=== PATIENT | male | born 1960 | race Caucasian/White ===

== ENCOUNTER 2023-08-06 08:54 | Outpatient (OUT) | payer OTHER, SELFPAY ==
[2023-08-06 09:19] LABS: Basophils Percent Auto 0.7 % (0.2-2.0); Hematocrit 40.5 % (42.0-54.0); Hemoglobin 13.1 g/dL (14.0-18.0); Immature Granulocytes Abs Auto 0.01 10^3/uL (0.00-0.03); Immature Granulocytes Pct Auto 0.4 % (0.0-0.5); Lymphocytes Absolute Auto 0.7 10^3/uL (1.2-3.8); Lymphocytes Percent Auto 25.2 % (20.5-60.0); Mean Corpuscular HGB Conc 32.3 g/dL (29.9-35.2); Mean Corpuscular Hemoglobin 28.8 pg (25.9-34.0); Mean Platelet Volume 9.4 fL (9.5-13.5); Monocytes Absolute Auto 0.4 10^3/uL (0.3-0.8); Monocytes Percent Auto 12.8 % (1.7-12.0); Neutrophils Absolute Auto 1.7 10^3/uL (1.4-6.5); Neutrophils Percent Auto 60.9 % (43.0-75.0); Platelet Count 102 10^3/uL (150-450); Red Blood Count 4.55 10^6/uL (4.70-6.10); Red Cell Distribution Width 13.5 % (11.0-15.0); White Blood Count 2.8 10^3/uL (4.0-11.0)
[2023-08-06 09:52] LABS: Alanine Aminotransferase 33 U/L (16-63); Albumin Globulin Ratio 0.9; Albumin Level 3.7 g/dL (3.4-5.0); Alkaline Phosphatase 106 U/L (46-116); Anion Gap 10.5; Aspartate Amino Transferase 23 U/L (15-37); BUN Creatinine Ratio 15.7; Bilirubin Total 1.5 mg/dL (0.2-1.0); Calcium 9.1 mg/dL (8.5-10.1); Carbon Dioxide 29.6 mmol/L (21.0-32.0); Chloride 101 mmol/L (98-107); Chol HDL Ratio 2.5; Cholesterol 146 mg/dL (<=200); Estimated GFR (African America >60 (>=60); Estimated GFR (Non-African Ame >60 (>=60); Free Thyroxine Index 2.16 (1.30-4.50); Globulin 4.3 g/dL; Glucose 102 mg/dL (74-106); HDL Cholesterol 58 mg/dL (40-60); LDL Cholesterol Calculated 78.4 mg/dL; Potassium 4.1 mmol/L (3.5-5.1); Sodium 137 mmol/L (136-145); Thyroid Stimulating Hormone 3.469 uIU/mL (0.358-3.740); Triglycerides 48 mg/dL (<=150); Uric Acid 5.2 mg/dL (3.5-7.2); VLDL CHOLESTEROL 9.6 mg/dL
[2023-08-06 10:46] LABS: Estimated Average Glucose 131 mg/dL; Glycohemoglobin A1C 6.2 % (4.5-6.2)
[2023-08-06 11:08] LABS: Prostate Specific Antigen Scrn 0.21 ng/mL (<=4.00)
[2023-08-07 10:11] LABS: Insulin 20.3 uIU/mL (2.6-24.9)
== END 2023-08-06 08:55 | disposition home or self-care (01) ==
LOC: LAB 08:58
PROVIDERS: PCP Family Medicine; Visit Provider Family Medicine
DX: Z00.00 Encounter for general adult medical examination without abnormal findings (principal); Z12.5 Encounter for screening for malignant neoplasm of prostate
CPT/HCPCS: 36415; 80053; 80061; 82306; 83036; 83525; 84436; 84443; 84479; 84550; 85025; G0103

== ENCOUNTER 2023-08-07 12:26 | Outpatient (REF) | payer OTHER, SELFPAY ==
[2023-08-07 15:51] LABS: Occult Blood Negative
== END 2023-08-07 12:27 | disposition home or self-care (01) ==
LOC: LAB 12:26
PROVIDERS: PCP Family Medicine; Visit Provider Family Medicine
DX: Z00.00 Encounter for general adult medical examination without abnormal findings (principal)
CPT/HCPCS: G0328

== ENCOUNTER 2023-09-17 12:25 | Outpatient (OUT) | payer OTHER, SELFPAY ==
--- NOTE | 2023-09-17 12:35 | NM_ITS ---
Patient: KIRTI DICKSON Exam Date: 09/17/2023 : 1960 Gender:M Ordering : DR Emory Eubanks . Admission #: [id number] Family : Order #: [id number] CLICK HERE TO VIEW EXAM RADIOLOGY REPORT PROCEDURE: NM ARCHIE PERF SPECT REST STR COMPARISON: None. INDICATIONS: FATIGUE, DYSPNEA TECHNIQUE: Exam Description: Stress/Rest two day protocol gated SPECT Rest Imagin.7 mCi Tc-99m Cardiolite IV on 09/17/2023 Stress Imaging 25.4 mCi Tc-99m Cardiolite IV on 09/18/2023 Exercise Protocol: 0.4 mg Lexiscan given IV Heart Rate (bpm): Rest: 70 Max: 187 PMHR: 74 Blood Pressure: Rest: 156/82 Max: 164/92 Symptoms: Rest and peak stress ECG findings were normal and the exercise portion of the study was normal per attending physician Dr. Ulloa . For more details please see separate cardiac stress test report. FINDINGS: QUALITY OF STUDY: Good. PERFUSION DEFECT: LOCATION: Basal inferior. Mid-inferior. Apical inferior. SIZE: Medium (3-4 segments). SEVERITY: Moderate. TYPE: Persistent. WALL MOTION: Mild hypokinesis: LV SIZE: Enlarged; EDV 163 mL. TID / TCD: None; 1.0 LVEF: Abnormal. Calculated EF 49%. SUMMARY: Myocardial perfusion imaging study has ABNORMAL findings. CONCLUSION: 1. Moderate size moderate severity fixed defect in the inferior wall without definite evidence reversible ischemia 2. Dilated left ventricle, EDV 163 milliliters 3. Low left ventricular ejection fraction of 49% 4. Normal exercise test Dictated by: Peewee Dang MD on 09/19/2023 at 07:56 Approved by: Peewee Dang MD on 09/19/2023 at 07:58
== END 2023-09-17 12:26 | disposition home or self-care (01) ==
LOC: NM 12:25
PROVIDERS: PCP Family Medicine; Visit Provider Family Medicine
DX: R06.00 Dyspnea, unspecified (principal)
CPT/HCPCS: 78452; A9500

== ENCOUNTER 2023-09-18 09:05 | Outpatient (OUT) | payer OTHER, SELFPAY ==
[2023-09-18] MEDS: REGADENOSON 0.4 MG/5 ML SYRINGE IV (09:59)
--- NOTE | 2023-09-18 16:54 | PM.STRESS ---
Stress Test Stress Test Requesting physician: Emory Eubanks Procedure: Lexiscan Cardiolite stress test General Information: Reason for Stress Test: Dyspnea Cardiac History and Risk Factors: No personal history listed. Father had CABG. Resting 12 - Lead Electrocardiogram: Rate & rhythm: Sinus rhythm at a rate of 70. [place]: Normal T-waves: Inverted in the anterior leads and flattened in the lateral leads. ST-segments: Normal orientation Other findings: Incomplete RBBB Stress Test: Protocol: Yuval protocol was initiated, but due to inability to ambulate further, the exercise component was unable to achieve target heart rate and therefore canceled.? Testing was changed to Lexiscan protocol, with injection of 0.4mg Lexiscan IV push followed by Cardiolite. Blood pressure: Initial: 156/82, Maximum: 164/92 Rate & rhythm: Patient remained in sinus rhythm during the exercise and recovery portions of the study.? The maximum heart rate was 117, which was 74% of the maximum predicted heart rate 158. PVCs were noted ST-segments & T-waves: There were no T-wave changes and no ST-segment changes when compared to the baseline EKG. Patient response/symptoms: There were no symptoms similar to the chief complaint. Interpretation: This is a normal Lexiscan Cardiolite stress test. T-wave changes noted at baseline did not change significantly during the testing. No reproducible dyspnea. Cardiolite imaging interpretation will be reported separately. Clinical correlation required.?
== END 2023-09-18 09:06 | disposition home or self-care (01) ==
LOC: CARD 09:05
PROVIDERS: PCP Family Medicine; Visit Provider Family Medicine
DX: R06.00 Dyspnea, unspecified (principal)
CPT/HCPCS: 93017; J2785

== ENCOUNTER 2023-09-19 22:34 | Emergency (ER) | payer OTHER, SELFPAY ==
[2023-09-19 22:38] VITALS: BP 125/80; PULSE 77; RESP 16; TEMP 36.9; O2SAT 96; BMI 52.2
--- NOTE | 2023-09-19 22:45 | XR_ITS ---
The [address] [address] Patient Name: KIRTI DICKSON MRN: [id number] date: 1960 Sex: M Assigned Patient Location: ER Current Patient Location: ER Accession/Order Number: [id number] Exam Date: 09/19/2023 22:50 Report Date: 09/19/2023 23:22 At the request of: CLYDE WAITE Procedure: XR chest 2V EXAM: XR chest 2V HISTORY: cough COMPARISON: None. TECHNIQUE: PA and lateral chest x-rays FINDINGS: No focal parenchymal consolidation or infiltrate. Calcified bilateral pulmonary granuloma. No pneumothorax or pleural effusion. The heart is upper limits of normal. No visualized acute osseous abnormality. XR/XR chest 2V IMPRESSION: No visualized acute abnormality Electronically authenticated by: KYLEE HOOD Date: 09/19/2023 23:22
--- NOTE | 2023-09-19 22:45 | ED.URI1 ---
HPI - URI/Sore Throat General Chief Complaint: Upper Respiratory Infection Stated Complaint: UPPER RESPIRATORY INFECTION COUGH Time Seen by Provider: 09/19/23 22:38 Source: patient Limitations: no limitations History of Present Illness HPI Narrative: presents complaining of recurrent cough today. States his had it yesterday. Tried laying down and his nose stuffiness worsened. Throat feels sore from recurrent coughing. Not short of breath and no fever or nausea.states when he lays down he finds himself coughing more and it is hard to sleep MD elicited complaint: Reports cough Related Data Home Medications Medication Instructions Recorded Confirmed furosemide 40 mg tablet 40 mg PO DAILY 09/19/23 09/19/23 trazodone 50 mg tablet 50 mg PO DAILY 09/19/23 09/19/23 verapamil 180 mg 24 hr 180 mg PO DAILY 09/19/23 09/19/23 capsule,extended release Allergies Allergy/AdvReac Type Severity Reaction Status Date / Time No Known Drug Allergies Allergy Verified 09/19/23 22:41 Review of Systems ROS Status of ROS 10 or more systems reviewed and unremarkable except as noted in history and below Exam Constitutional Vital Signs, click to edit/add: Last Vital Signs Temp 98.4 F 09/19/23 22:38 Pulse 77 09/19/23 22:38 Resp 16 09/19/23 22:38 BP 125/80 09/19/23 22:38 Pulse Ox 96 09/19/23 22:38 O2 Del Method Room Air 09/19/23 22:38 Common normals: no apparent distress, average body habitus, oriented x3, healthy appearing and well nourished [facility] Common normals: normocephalic and head/scalp atraumatic Eye Common normals: PERRL, EOMs intact bilaterally and conjunctivae normal Respiratory Common normals: normal respiratory effort, no retractions, no use of accessory muscles and clear to auscultation bilaterally Cardio Common normals: regular rate, regular rhythm, S1 normal heart sound and S2 normal heart sound GI Common normals: Normal to inspection, nondistended, normoactive bowel sounds present, soft to palpation and non-tender Extremity Common normals: normal to inspection and full ROM Neuro Common normals: oriented x3, CN's II-XII intact bilaterally, moves all extremities, no focal motor deficits and no sensory deficits noted Psych Appearance: grossly normal Course Vital Signs Vital signs: Vital Signs Temperature 98.4 F 09/19/23 22:38 Pulse Rate 77 09/19/23 22:38 Respiratory Rate 16 09/19/23 22:38 Blood Pressure 125/80 09/19/23 22:38 Pulse Oximetry 96 09/19/23 22:38 Oxygen Delivery Method Room Air 09/19/23 22:38 Temperature 98.4 F 09/19/23 22:38 Pulse Rate 77 09/19/23 22:38 Respiratory Rate 16 09/19/23 22:38 Blood Pressure 125/80 09/19/23 22:38 Pulse Oximetry 96 09/19/23 22:38 Oxygen Delivery Method Room Air 09/19/23 22:38 MDM - URI/Sore Throat MDM Narrative Medical decision making narrative: patient presents complaining of cough. Recurrent cough. worse when supine. States his was ill yesterday with the same and she is now improving. His cxray is clear. Respiratory panel is neg and his chest is clear. Patient informed he most likely has same illness as his . Will provide an inhaler to use prn for the spasmodic cough he is describing Lab Data Labs: Lab Results 09/19/23 09/19/23 Range/Units 22:55 23:00 WBC 4.7 (4.0-11.0) 10^3/uL RBC 4.35 L (4.70-6.10) 10^6/uL Hgb 12.6 L (14.0-18.0) g/dL Hct 39.9 L (42.0-54.0) % MCV 91.7 (80.0-94.0) fL MCH 29.0 (25.9-34.0) pg MCHC 31.6 (29.9-35.2) g/dL RDW 13.7 (11.0-15.0) % Plt Count 118 L (150-450) 10^3/uL MPV 9.9 (9.5-13.5) fL Neut % (Auto) 71.4 (43.0-75.0) % Lymph % (Auto) 15.5 L (20.5-60.0) % [place] % (Auto) 12.3 H (1.7-12.0) % Eos % (Auto) 0.0 L (0.9-7.0) % Baso % (Auto) 0.6 (0.2-2.0) % Neut # (Auto) 3.4 (1.4-6.5) 10^3/uL Lymph # (Auto) 0.7 L (1.2-3.8) 10^3/uL [place] # (Auto) 0.6 (0.3-0.8) 10^3/uL Eos # (Auto) 0.0 (0.0-0.7) 10^3/uL Baso # (Auto) 0.0 (0.0-0.1) 10^3/uL Abs Immat Gran (auto) 0.01 (0.00-0.03) 10^3/uL Imm/Tot Granulo (auto) 0.2 (0.0-0.5) % Sodium 130 L (136-145) mmol/L Potassium 3.8 (3.5-5.1) mmol/L Chloride 95 L (98-107) mmol/L Carbon Dioxide 25.7 (21.0-32.0) mmol/L Anion Gap 13.1 BUN 15.0 (7.0-18.0) mg/dL Creatinine 1.10 (0.70-1.30) mg/dL Est GFR ( Amer) >60 (>=60) Est GFR (Non-Af Amer) >60 (>=60) BUN/Creatinine Ratio 13.6 Glucose 110 H (74-106) mg/dL Calcium 9.1 (8.5-10.1) mg/dL Adenovirus (PCR) Not detected (NOT DETECTE) C. pneumoniae DNA (PCR) Not detected (NOT DETECTE) Coronavirus Type OC43 Not detected (NOT DETECTE) Coronavirus Type HKU1 Not detected (NOT DETECTE) Coronavirus Type 229E Not detected (NOT DETECTE) Coronavirus Type NL63 Not detected (NOT DETECTE) Human Metapneumovir PCR Not detected (NOT DETECTE) M. pneumoniae (PCR) Not detected (NOT DETECTE) Parainfluenza PCR Not detected (NOT DETECTE) Parainfluenza 2 (PCR) Not detected (NOT DETECTE) Parainfluenza 3 (PCR) Not detected (NOT DETECTE) Parainfluenza 4 (PCR) Not detected (NOT DETECTE) RSV (RT-PCR) Not detected (NOT DETECTE) Entero/Rhino (PCR) Not detected (NOT DETECTE) SARS-CoV-2 (PCR) Not detected (NOT DETECTE) Bordetella pertussis (PCR) Not detected (NOT DETECTE) B parapertussis DNA PCR Not detected (NOT DETECTE) Influenza Type A (PCR) Not detected (NOT DETECTE) Influenza Type B (PCR) Not detected (NOT DETECTE) Discharge Plan Discharge Chief Complaint: Upper Respiratory Infection Clinical Impression: Upper respiratory infection, Cough Patient Disposition: Home, Self-Care Prescriptions / Home Meds: No Action furosemide 40 mg tablet 40 mg PO DAILY trazodone 50 mg tablet 50 mg PO DAILY verapamil 180 mg capsule,ext rel. pellets 24 hr 180 mg PO DAILY Instructions: Upper Respiratory Infection (ED) Stand Alone Forms: Portal Instructions Referrals: Emory Eubanks MD [Primary Care Provider] - 1 week
[2023-09-19 23:02] LABS: Basophils Percent Auto 0.6 % (0.2-2.0); Hematocrit 39.9 % (42.0-54.0); Hemoglobin 12.6 g/dL (14.0-18.0); Immature Granulocytes Abs Auto 0.01 10^3/uL (0.00-0.03); Immature Granulocytes Pct Auto 0.2 % (0.0-0.5); Lymphocytes Absolute Auto 0.7 10^3/uL (1.2-3.8); Lymphocytes Percent Auto 15.5 % (20.5-60.0); Mean Corpuscular HGB Conc 31.6 g/dL (29.9-35.2); Mean Corpuscular Volume 91.7 fL (80.0-94.0); Mean Platelet Volume 9.9 fL (9.5-13.5); Monocytes Absolute Auto 0.6 10^3/uL (0.3-0.8); Monocytes Percent Auto 12.3 % (1.7-12.0); Neutrophils Absolute Auto 3.4 10^3/uL (1.4-6.5); Neutrophils Percent Auto 71.4 % (43.0-75.0); Platelet Count 118 10^3/uL (150-450); Red Blood Count 4.35 10^6/uL (4.70-6.10); Red Cell Distribution Width 13.7 % (11.0-15.0); White Blood Count 4.7 10^3/uL (4.0-11.0)
[2023-09-19 23:06] LABS: Adenovirus NOT DETECTED (NOT DETECTE); Bordetella parapertussis NOT DETECTED (NOT DETECTE); Coronavirus 229E NOT DETECTED (NOT DETECTE); Coronavirus HKU1 NOT DETECTED (NOT DETECTE); Coronavirus NL63 NOT DETECTED (NOT DETECTE); Coronavirus OC43 NOT DETECTED (NOT DETECTE); Human Metapneumovirus NOT DETECTED (NOT DETECTE); Human Rhinovirus/Enterovirus NOT DETECTED (NOT DETECTE); Influenza A NOT DETECTED (NOT DETECTE); Influenza B NOT DETECTED (NOT DETECTE); Mycoplasma pneumoniae NOT DETECTED (NOT DETECTE); Parainfluenza Virus 1 NOT DETECTED (NOT DETECTE); Parainfluenza Virus 2 NOT DETECTED (NOT DETECTE); Parainfluenza Virus 3 NOT DETECTED (NOT DETECTE); Parainfluenza Virus 4 NOT DETECTED (NOT DETECTE); Respiratory Syncytial Virus NOT DETECTED (NOT DETECTE); SARS-CoV-2 NOT DETECTED (NOT DETECTE)
[2023-09-19 23:17] LABS: Anion Gap 13.1; BUN Creatinine Ratio 13.6; Calcium 9.1 mg/dL (8.5-10.1); Carbon Dioxide 25.7 mmol/L (21.0-32.0); Chloride 95 mmol/L (98-107); Estimated GFR (African America >60 (>=60); Estimated GFR (Non-African Ame >60 (>=60); Glucose 110 mg/dL (74-106); Potassium 3.8 mmol/L (3.5-5.1); Sodium 130 mmol/L (136-145)
[2023-09-20] MEDS: ALBUTEROL SULFATE 200 PUFF/6.7 GM INHALER IH (00:30)
== END 2023-09-20 00:33 | disposition home or self-care (01) ==
PROVIDERS: Emergency Provider Internal Medicine; PCP Family Medicine
DX: J06.9 Acute upper respiratory infection, unspecified (principal); R05.9 Cough, unspecified; Z79.899 Other long term (current) drug therapy; Z20.822 Contact with and (suspected) exposure to COVID-19
CPT/HCPCS: 0202U; 36415; 71046; 80048; 85025; 99284

== ENCOUNTER 2023-10-17 08:26 | Outpatient (OUT) | payer OTHER, SELFPAY ==
--- NOTE | 2023-10-17 09:11 | CA_ITS ---
Patient Name: KIRTI DICKSON MR#: [id number] : 1960 Exam Date: 10/17/2023 Ordering Doctor: MRS. DESIRAE GUPTA NP ECHOCARDIOGRAM REPORT PROCEDURE: CA ECHO DOPPLER COMPLETE INDICATIONS: Shortness of breath, abnormal ECG, hypertension COMPARISON: None. DESCRIPTION: COMPLETE ECHOCARDIOGRAM Real-time transthoracic echocardiography with 2D, M-mode, spectral and color flow Doppler performed. QUALITY: Technically difficult due to patient's condition. 72 385# BSA 2.81 m2 LEFT VENTRICLE: Normal chamber size. Moderate concentric left ventricular hypertrophy. LV EF: Global left ventricular systolic function is difficult to assess but appears preserved; visually estimated ejection fraction is 55 to 60%. Unable to assess regional wall motion abnormalities. DIASTOLIC: Normal diastolic function. ATRIAL SEPTUM: Not well visualized. LEFT ATRIUM: Normal chamber size. RIGHT ATRIUM: Normal chamber size. RIGHT VENTRICLE: Normal chamber size. Normal right ventricular systolic function. TRICUSPID VALVE: Normal mobility and thickness. No stenosis with no regurgitation. MITRAL VALVE: Normal mobility and thickness. No evidence of mitral valve stenosis. There is no mitral annular calcification. No mitral regurgitation. AORTIC VALVE: Normal trileaflet appearance. No visible sclerosis. Normal leaflet mobility. No evidence of aortic valve stenosis. No aortic regurgitation. AORTIC ROOT: Not well visualized. PULMONIC VALVE: Normal thickness and mobility. No stenosis. No regurgitation. PERICARDIUM: No evidence of pericardial effusion. IVC: IVC is dilated (3.0 cm) with no collapse. CONCLUSION: 1. Global left ventricular systolic function is difficult to assess; visually estimated ejection fraction is 55 to 60% 2. The right ventricle is normal in size and systolic function 3. Moderately increased left ventricular wall thickness 4. Valves are poorly seen; no obvious valvular abnormalities Adult Echocardiography Procedure Report Left Ventricle LVEDD (3.7 - 5.6 cm): 5.26 cm LVESD (2.2 - 4.0 cm): 3.56 cm LVIVS thickness (0.6 - 1.2 cm): 1.26 cm LVPW thickness (0.5 - 1.0 cm): 1.47 cm e': 0.17 m/s E - e': 5.32 LVOT Max Gradient: 5.08 mm[Hg] LVOT Area (cm2): 1.13 m/s Peak Velocity (LVOT): 1.13 m/s LVOT Diameter 2.81 cm Left Atrium LA Volume Index (2D A2C): 26.70 ml/m2 Left Atrium Systolic Dimension: 3.97 cm Mitral Valve MV E to A Ratio: 1.60 Mitral Valve A-Wave Peak Velocity: 0.56 m/s Mitral Valve E-Wave Peak Velocity: 0.89 m/s Right Ventricle Aorta AO Root Diam: 4.42 cm Aortic Valve AoV Area (Peak Bucky): 4.90 cm2, 4.90 cm2 Peak Velocity(Antegrade Flow): 1.43 m/s Peak Gradient(Antegrade Flow): 8.14 mm[Hg] Mean Velocity(Antegrade Flow): 0.96 m/s Mean Gradient(Antegrade Flow): 4.33 mm[Hg] Velocity Time Integral: 34.30 cm Tricuspid Valve Pulmonic Valve Mean Gradient: 1.21 mm[Hg] Mean Velocity: 0.52 m/s Peak Velocity: 0.70 m/s, 0.78 m/s Peak Gradient: 2.42 mm[Hg], 1.94 mm[Hg] Right Atrium Right Atrium Systolic Pressure: 75.95 ml, 75.95 ml Dictated by: Lindsey Swain M.D. on 10/17/2023 at 15:57 Approved by: Lindsey Swain M.D. on 10/17/2023 at 16:05
== END 2023-10-17 08:27 | disposition home or self-care (01) ==
LOC: CARD 08:27
PROVIDERS: PCP Family Medicine; Visit Provider Nurse Practitioner Acute Care
DX: R06.02 Shortness of breath (principal); R94.39 Abnormal result of other cardiovascular function study
CPT/HCPCS: 93306

== ENCOUNTER 2023-10-31 09:24 | Outpatient (OUT) | payer OTHER, SELFPAY ==
[2023-10-31 10:00] LABS: Basophils Percent Auto 0.6 % (0.2-2.0); Hematocrit 39.3 % (42.0-54.0); Hemoglobin 12.3 g/dL (14.0-18.0); Immature Granulocytes Abs Auto 0.01 10^3/uL (0.00-0.03); Immature Granulocytes Pct Auto 0.3 % (0.0-0.5); Lymphocytes Absolute Auto 0.9 10^3/uL (1.2-3.8); Lymphocytes Percent Auto 26.8 % (20.5-60.0); Mean Corpuscular HGB Conc 31.3 g/dL (29.9-35.2); Mean Corpuscular Hemoglobin 28.5 pg (25.9-34.0); Mean Corpuscular Volume 91.2 fL (80.0-94.0); Mean Platelet Volume 9.7 fL (9.5-13.5); Monocytes Absolute Auto 0.4 10^3/uL (0.3-0.8); Monocytes Percent Auto 12.5 % (1.7-12.0); Neutrophils Percent Auto 59.8 % (43.0-75.0); Platelet Count 126 10^3/uL (150-450); Red Blood Count 4.31 10^6/uL (4.70-6.10); Red Cell Distribution Width 13.9 % (11.0-15.0); White Blood Count 3.3 10^3/uL (4.0-11.0)
[2023-11-01 04:09] LABS: Testosterone 138 ng/dL (264-916)
== END 2023-10-31 09:25 | disposition home or self-care (01) ==
LOC: LAB 09:26
PROVIDERS: PCP Family Medicine; Visit Provider Family Medicine
DX: J01.90 Acute sinusitis, unspecified (principal); D64.9 Anemia, unspecified; D69.6 Thrombocytopenia, unspecified
CPT/HCPCS: 36415; 82728; 83540; 84403; 85025

== ENCOUNTER 2023-12-15 10:08 | Outpatient (OUT) | payer OTHER, SELFPAY ==
--- OUTSIDE RECORDS SUMMARY | 2023-12-15 10:15 | XMS_ITS | CCD ---
Author Name Unknown Address [address] [place] [address] Organization [facility] Care Team Providers Care Equipment Installation Professional Name Role Phone DR BLAS EUBANKS Admitting Unavailable DR BLAS EUBANKS Attending Unavailable FRANK NAGY Primary Care Unavailable DR BLAS EUBANKS Consulting Unavailable Blas Eubanks Primary Care Physician Cuco BAEZA Attending Unavailable THUAN YADAV Attending Unavailable NANETTE FLETCHER Attending Unavailable Medications Current Medications Medication Drug Class(es) Dates Sig (Normalized) Sig (Original) celecoxib 100 mg oral capsule (1 source) Nonsteroidal Anti-inflammatory Drug Start: 02-14-2023 take 1 capsule by mouth once daily CeleBREX 100 mg Cap 100 mg = 1 cap(s), Oral, Daily, Refills(s) 0 Start Date: 02/14/23 Status: Ordered furosemide 40 mg oral tablet (1 source) Loop Diuretic Start: 02-14-2023 take 1 tablet by mouth once daily Lasix 40 mg Tab 40 mg = 1 tab(s), Oral, Daily, Refills(s) 0 Start Date: 02/14/23 Status: Ordered traZODone hydrochloride 50 mg oral tablet (1 source) Serotonin Reuptake Inhibitor Start: 02-14-2023 take 1-3 tablets by mouth once daily at bedtime as needed traZODONE 50 mg Tab 1-3 tabs, Oral, Once a day (at bedtime), PRN Insomnia, Refills(s) 0 Start Date: 02/14/23 Status: Ordered 24 hr verapamil hydrochloride 180 mg extended release oral capsule (1 source) Calcium Channel Saurav Start: 02-14-2023 take 1 capsule by mouth once daily verapamil 180 mg Cap-ER 180 mg = 1 cap(s), Oral, Daily, Refills(s) 0 Start Date: 02/14/23 Status: Ordered Problems Problem Classification Problem Date Documented Da te Episodic/Chronic Coagulation and hemorrhagic disorders (6 sources) Thrombocytopenia, unspecified; Translations: [THROMBOCYTOPENIA UNSPECIFIED] Onset: 02-28-2022 Chronic Congestive heart failure; nonhypertensive (2 sources) Unspecified diastolic (congestive) heart failure; Translations: [Unspecified diastolic (congestive) heart failure] Onset: 11-06-2023 Chronic Diseases of white blood cells (1 source) Decreased white blood cell count, unspecified; Translations: [DECREASED WBC COUNT UNSPECIFIED] Onset: 03-04-2022 Chronic Essential hypertension (1 source) Hypertensive disorder 02-14-2023 Chronic Other diseases of veins and lymphatics (2 sources) Venous insufficiency (chronic) (peripheral); Translations: [Venous insufficiency (chronic) (peripheral)] Onset: 09-29-2023 Episodic Other lower respiratory disease (2 sources) Other forms of dyspnea; Translations: [Other forms of dyspnea] Onset: 09-29-2023 Episodic Other nutritional; endocrine; and metabolic disorders (1 source) Body mass index 40+ - severely obese 02-25-2023 Chronic Other nutritional; endocrine; and metabolic disorders (1 source) Morbid obesity 02-14-2023 Chronic Other nutritional; endocrine; and metabolic disorders (2 sources) Morbid (severe) obesity due to excess calories; Translations: [Morbid (severe) obesity due to excess calories] Onset: 09-29-2023 Chronic Other screening for suspected conditions (not mental disorders or infectious disease) (2 sources) Abnormal result of other cardiovascular function study; Translations: [Abnormal result of other cardiovascular function study] Onset: 11-06-2023 Episodic Other skin disorders (1 source) Disorder of skin; Translations: [Disorder of the skin and subcutaneous tissue, unspecified] Onset: 02-25-2023 Episodic Other skin disorders (1 source) Lesion of scalp 02-25-2023 Episodic Residual codes; unclassified (2 sources) Family history of ischemic heart disease and other diseases of the circulatory system; Translations: [Family history of ischemic heart disease and other diseases of the circulatory system] Onset: 11-06-2023 Episodic Results Test Name Value Interpretation Reference Range Facility Office Visiton 11-06-2023 Follow-up visit [id number] Jas Dickson 1960 Date Provider Department [place] 11/06/2023 271-THUAN YADAV GERHARD [place] Family History Problem Relation Age of Onset Coronary artery disease Father Other Father Family Status - Relation Status Age at Father Level of Service:63717 [place] OFFICE/OUTPATIENT ESTABLISHED HIGH MDM 40-54 MIN Normal [facility] Orders Onlyon 11-06-2023 Orders Only [id number] Jas Dickson R 1960 M Date Provider Department [facility] 11/06/2023 Rosalinda-MARSHA RYDER [facility] Family History Problem Relation Age of Onset Coronary artery disease Father Other Father Family Status - Relation Status Age at Father Normal [facility] Office Visiton 09-29-2023 Follow-up visit [id number] Jas Dickson 1960 M Date Provider Department Center 09/29/2023 NANETTE CRAFT GERHARD [facility] Family History Problem Relation Age of Onset Coronary artery disease Father Other Father Family Status - Relation Status Age at Father Level of Service:42391 [place] OFFICE/OUTPATIENT NEW MODERATE MDM 45-59 MINUTES Normal [facility] Ambulatory Visit Summaryon 0 02-25-2023 Ambulatory Visit Summary KIRTI DICKSON :1960 Visit Date:02/25/2023 Ambulatory Visit Instructions Your Care Team Attending Physician - FELISHA MASTERSON, [place] Primary Care Physician - Blas Eubanks MD This Is Your Medications List Contact prescribing physician if questions or concerns celecoxib (CeleBREX 100 mg Cap) furosemide (Lasix 40 mg Tab) trazodone (traZODONE 50 mg Tab) verapamil (verapamil 180 mg Cap-ER) Procedures Performed Gastric sleeve, Uvulectomy. Discharge Vitals Heart Rate (Peripheral) 78 Respiratory Rate 16 Blood Pressure 130/88 Height 182.88 cm Height 72 in Weight 181 kg Weight 398.2 lb BMI 54.12 Medications What How Much When Instructions Unchanged celecoxib (CeleBREX 100 mg Cap) 1 Capsules By Mouth Every day Contact prescribing physician if questions or concerns Unchanged furosemide (Lasix 40 mg Tab) 1 Tablets By Mouth Every day Contact prescribing physician if questions or concerns Unchanged trazodone (traZODONE 50 mg Tab) 1-3 tabs By Mouth Once a day (at bedtime) as needed for Insomnia Contact prescribing physician if questions or concerns Unchanged verapamil (verapamil 180 mg Cap-ER) 1 Capsules By Mouth Every day Contact prescribing physician if questions or concerns Medications and Immunizations Administered Not Given influenza virus vaccine, inactivated, Patient Refuses Allergies No Known Allergies Problems Ongoing - Any problem that you are currently receiving treatment for. BMI 50.0-59.9, adult HTN (hypertension) Morbid obesity Normal [facility] Physician Referralon 023 Physician Referral [id number] Normal [facility] CBC AUTO DIFFon 02-28-2022 BASO # 0.0 103/ul Normal 0.0-0.1 [facility] Comment on above: Performed By: #### C BC #### [facility] [address] [place] [address] Dr. Bashir Lemons Basophils/100 WBC (Bld) 0.5 % Normal 0.2-2.0 [facility] Comment on above: Performed By: #### C BC #### [facility] [address] [place] [address] Dr. Bashir Lemons EO # 0.0 103/ul Normal 0.0-0.7 [facility] Comment on above: Performed By: #### C BC #### [facility] [address] [place] [address] Dr. Bashir Lemons Eosinophils/100 WBC (Bld) 0.0 % Critically low 0.9-7.0 [facility] Comment on above: Performed By: #### C BC #### [facility] [address] [place] [address] Dr. Bashir Lemons Erythrocyte distribution width (RBC) [Ratio] 12.3 % Normal 11.0-15.0 [facility] Comment on above: Performed By: #### C BC #### [facility] [address] [place] [address] Dr. Bashir Lemons Hematocrit (Bld) [Volume fraction] 41.9 % Critically low 42.0-54.0 [facility] Comment on above: Performed By: #### C BC #### [facility] [address] [place] [address] Dr. Bashir Lemons Hemoglobin (Bld) [Mass/Vol] 13.8 g/dL Critically low 14.0-18.0 [facility] Comment on above: Performed By: #### C BC #### [facility] [address] [place] [address] Dr. Bashir Lemons IG # 0.02 10e3/ul Normal 0.00-0.03 [facility] Comment on above: Performed By: #### C BC #### [facility] [address] [place] [address] Dr. Bashir Lemons IG % 0.5 % Normal 0.0-0.5 [facility] Comment on above: Performed By: #### C BC #### [facility] [address] [place] [address] Dr. Bashir Lemons LYMPH # 1.3 103/ul Normal 1.2-3.8 [facility] Comment on above: Performed By: #### C BC #### [facility] [address] [place] [address] Dr. Bashir Lemons Lymphocytes/100 WBC (Bld) 34.2 % Normal 20.5-60.0 [facility] Comment on above: Performed By: #### C BC #### [facility] [address] [place] [address] Dr. Bashir Lemons MANUAL DIFF REQ NO Normal [facility] Comment on above: Performed By: #### C BC #### [facility] [address] [place] [address] Dr. Bashir Lemons MCH (RBC) [Entitic mass] 28.9 pg Normal 25.9-34.0 [facility] Comment on above: Performed By: #### C BC #### [facility] [address] [place] [address] Dr. Bashir Lemons MCHC (RBC) [Mass/Vol] 32.9 g/dL Normal 29.9-35.2 [facility] Comment on above: Performed By: #### C BC #### [facility] [address] [place] [address] Dr. Bashir Lemons MCV (RBC) [Entitic vol] 87.8 fL Normal 80.0-94.0 [facility] Comment on above: Performed By: #### C BC #### [facility] [address] [place] [address] Dr. Bashir Lemons MONO # 0.5 103/ul Normal 0.3-0.8 [facility] Comment on above: Performed By: #### C BC #### [facility] [address] [place] [address] Dr. Bashir Lemons Monocytes/100 WBC (Bld) 12.1 % Critically high 1.7-12.0 [facility] Comment on above: Performed By: #### C BC #### [facility] [address] [place] [address] Dr. Bashir Lemons NEUT # 2.0 103/ul Normal 1.4-6.5 [facility] Comment on above: Performed By: #### C BC #### [facility] [address] [place] [address] Dr. Bashir Lemons Neutrophils/100 WBC (Bld) 52.7 % Normal 43.0-75.0 [facility] Comment on above: Performed By: #### C BC #### [facility] [address] [place] [address] Dr. Bashir Lemons Platelet mean volume (Bld) [Entitic vol] 9.5 fL Normal 9.5-13.5 [facility] Comment on above: Performed By: #### C BC #### [facility] [address] [place] [address] Dr. Bashir Lemons PLT 149 103/ul Critically low 150-[address] [facility] Comment on above: Performed By: #### C BC #### [facility] [address] [place] [address] Dr. Bashir Lemons RBC 4.77 106/ul Normal 4.70-6.10 [facility] Comment on above: Performed By: #### C BC #### [facility] [address] [place] [address] Dr. Bashir Lemons WBC 3.8 103/ul Critically low 4.0-11.0 [facility] Comment on above: Performed By: #### C BC #### [facility] [address] [place], [place] [address] Dr. Bashir Lemons Basic Metabolic Panlon 09-08 Anion gap [Moles/Vol] 13 mmol/L Normal 9-18 [facility] Comment on above: Performed By: #### B MP #### [facility] [address] [place] [address] Calcium [Mass/Vol] 9.7 mg/dL Normal 8.5-10.2 [facility] Comment on above: Performed By: #### B MP #### [facility] [place] [address] Chloride [Moles/Vol] 100 mmol/L Normal 97-105 [facility] Comment on above: Performed By: #### B MP #### [facility] [place] [address] CO2 [Moles/Vol] 25 mmol/L Normal 22-30 [facility] Comment on above: Performed By: #### B MP #### [place] [address] [place] [id number] Creatinine [Mass/Vol] 0.72 mg/dL Low 0.73-1.22 [facility] Comment on above: Performed By: #### B MP #### [facility] [place] [id number] eGFR- Amer. >60 Normal [facility] Comment on above: Performed By: #### B MP #### [facility] [place], [place] [address] GFR/1.73 sq M predicted among non-blacks MDRD (S/P/Bld) [Vol rate/Area] mL/min/{1.73_m2} Normal [facility] Comment on above: Result Comment: eGFR (Estimated GFR) Units of measure: mL/min/1.73 meters squared eGFR is derived from the reexpressed MDRD Study equation using the following parameters: serum creatinine, age, gender and race. The creatinine assay has been calibrated to be traceable to IDMS. An eGFR <60 mL/min/1.73m2 for >3 months is consistent with chronic kidney disease. Refer to KDOQI guidelines for clinical interpretation. In patients with unstable renal function, e.g. those with acute kidney injury, the eGFR may not accurately reflect actual GFR. Performed By: #### B MP #### [facility] [address] [place] [address] Glucose [Mass/Vol] 120 mg/dL High 74-99 [facility] Comment on above: Result Comment: The [place] Diabetes Association (ADA) provides guidance for cutoff values for fasting glucose and random glucose. The ADA defines fasting as no caloric intake for at least 8 hours. Fasting plasma glucose results between 100 to 125 mg/dL indicate increased risk for diabetes (prediabetes). Fasting plasma glucose results greater than or equal to 126 mg/dL meet the criteria for diagnosis of diabetes. In the absence of unequivocal hyperglycemia, results should be confirmed by repeat testing. In a patient with classic symptoms of hyperglycemia or hyperglycemic crisis, random plasma glucose results greater than or equal to 200 mg/dL meet the criteria for diagnosis of diabetes. Reference: Standards of Medical Care in Diabetes 2016, [place] [employer] Association. Diabetes Care. 2016.39(Suppl 1). Performed By: #### B MP #### [facility] [address] [place] [id number] Potassium [Moles/Vol] 4.3 mmol/L Normal 3.7-5.1 [facility] Comment on above: Performed By: #### B MP #### [facility] [address] [place], [place] [address] Sodium [Moles/Vol] 138 mmol/L Normal 136-144 [facility] Comment on above: Performed By: #### B MP #### [facility] [address] [place], [place] [address] Urea nitrogen [Mass/Vol] 22 mg/dL Normal 9-24 [facility] Comment on above: Performed By: #### B #### [facility] [address] [place], [place] [address] CNOVon 09-08-2019 CNOV Office Visit (DERMMN ) KIRTI DICKSON ([id number]) 1960 M Date Time Provider Department 09/08/19 10:20 AM GLENDY DAUGHERTY DERMMN During your visit today, we recorded the following information about you: Glendy Daugherty MD 09/19/2019 11:39 AM Signed EST PATIENT CHIEF COMPLAINT: Follow Up (Iga mediated leukocytoclastic vasculitis) JACKELYN: 04/01/[address] Hutchins and Dr. Posey HISTORY OF PRESENT ILLNESS: Kirti Dickson is a 59 year old male here for evaluation of vasculitis. HPI (Rash) Location: legs, abdomen Duration: -First occurred about 3 years ago. Patient had extensive rash and ulceration. He was hospitalized at the time and diagnosed with IgA vasculitis. He was treated with a prednisone taper with resolution. Per note 03/2017, labs (UA and BMP) were unremarkable - normal Cr, no blood in the urine. -Has not had recurrence until 08/29/19 - woke up with purpuric rash on bilateral legs and abdomen during visit to [place]. Patient provides photographs of rash for review today. Patient was prescribed prednisone taper by his PCP (08/30) - 60 x 4 days, 40 x 4 days, etc. Patient self-decreased taper from 40 mg to 30 mg because prednisone is making him very hungry. Has improved on prednisone with no purpura today. Usually after taking prednisone, patient gets a rash on the arms. Appearance (size, shape, color): erythematous Symptoms (growing, itching, bleeding, tender): none Modifying factors: none Current treatment: prednisone Past treatments: permethrin - Per , pt's hands have been itching over the last few months which is what preceded the IgA vasculitis last time - and are concerned about kidney function because they were told the vasculitis can affect the kidneys, PCP checks lab work yearly - Had weight loss surgery in Jan 2019, has lost 200 lb since surgery Personal Dermatologic History History of skin cancer: No History of chronic skin disease: Yes vasculitis History of allergic rhinitis / asthma: Yes seasonal allergies Family History History of skin cancer: No History of chronic skin disease: No History autoimmune diseases: No Social History Tobacco use: No EtOh use: Yes occasional 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 Past Medical History PAST MEDICAL HISTORY Diagnosis Date - HTN (hypertension) - Hypertension - Sleep apnea REVIEW OF SYSTEMS: Constitutional: Denies fever, chills, unintentional weight loss Head: Denies headaches Eyes: Denies vision changes ENT: Denies hearing changes, rhinorrhea, dysphagia Cardiovascular: Denies chest pain or palpitations Respiratory: Denies SOB, cough, wheezing GI: Denies abd pain MSK: +Joint pains Neuro: Denies weakness, numbness, tingling Psych: Denies depression or anxiety Heme/Lymph: Denies easy bruising or bleeding Skin as per HPI Medications Current Outpatient Medications: OMEPRAZOLE ORAL Take by mouth once daily. triamcinolone acetonide (KENALOG) 0.1 % ointment Apply to right lower leg when itchy and scaly once daily Friday-Friday, taking weekends off. predniSONE (DELTASONE) 5 mg tablet Take 10mg (2 pills) one day, then 5mg (1pill) the next for 2 weeks, then decrease to 5 mg daily. verapamil SR (CALAN SR, ISOPTIN SR) 240 mg CR tablet Take 1 tablet by mouth once daily. colchicine 0.6 mg capsule Start by taking one tablet daily by mouth. If well tolerated after 1 week increase to 1 tablet twice daily. acetaminophen (TYLENOL EXTRA STRENGTH) 500 mg tablet Take 500 mg by mouth as needed. camphor-menthol (SARNA) lotion Apply 1 application to affected area as needed for Itching/Rash. pantoprazole DR (PROTONIX) 40 mg tablet Take 1 tablet by mouth DAILY (6 AM). traZODone (DESYREL) 150 mg tablet Take 0.5 tablets by mouth daily at bedtime. No current facility-administered medications for this visit. PHYSICAL EXAM: General: awake, alert, no acute distress Neuropsych: appropriate mood and affect Skin: Skin exam was performed today including the following: head and face, neck, chest (including breasts and axillae), abdomen, back, bilateral upper extremities, bilateral lower extremities, hands, feet. Pertinent findings include: -Felipe skin type: I-II -Numerous open comedones on bilateral temples c/w Favre-Racouchot -Scattered on the face are yellow shiny papules with central umbilication c/w sebaceous hyperplasia -Subtle, pink scattered papules on bilateral upper extremities - Abdominal and flank striae - Circumferentially involving the bilateral lower legs (R>L) are hyperpigmented eczematous plaques ASSESSMENT AND PLAN: Vasculitis Dermatitis of uncertain etiology -Patient with history of IgA vasculitis in the past. Now with new purpuric lesions suspicious for vasculitis on lower extremities and abdomen, resolved with prednisone -Subtle, scattered pink papules on the upper extremities today, not clinically consistent with classic vasculitis -Punch biopsy x 2 (EMI and DIF) performed today of lesions on arms to establish diagnosis, as below. -Recommend patient continue current course of prednisone as prescribed. -UA and BMP today to assess renal function given hx of IgA vasculitis and recent suspected flare of vasculitis. Punch biopsy to establish and confirm diagnosis. - Photo taken: Yes - Risks, benefits, alternatives and personnel required for punch biopsy reviewed with patient. Pt and physician agree as to site(s) to be biopsied. Pt verbalizes understanding and wishes to proceed. Pamela Hope MD - Site(s) anesthetized with buffered 1% Lidocaine with Epinephrine. 4mm punch biopsy x 2 performed. Hemostasis was obtained with interrupted sutures. Dressing applied. Written and verbal wound care instructions provided to patient. - Two specimens sent from L upper arm (superior) for EMI and L upper arm (inferior) for DIF to r/o IgA vasculitis - Mr. Dickson tolerated the procedure well and without complication. Follow-up for suture removal in 10-12 days. Bilateral lower extremity stasis dermatitis - Per review of prior notes, was involving LLE but now is bilateral - Encouraged to continue moisturization, compression stockings, and elevation - Will continue to follow with home vascular surgeon Follow up pending biopsy results. YI Huggins MD Dermatology PGY-1 September 08, 2019 Attestation: I agree with the Chief Complaint, ROS, and Past Histories independently gathered by the clinical ict support engineer, and the remaining scribed note accurately describes my personal service to the patient. I saw and evaluated Kirti Dickson, as well as developed and discussed the assessment and plan with the Resident. I have reviewed the Resident's note and agree with the history and physical examination as described, as well as the assessment and plan of care. The resident's note was annotated by me as needed to reflect my direct input. I supervised the procedure(s) performed as documented above by the Resident. MD Pamela Gates MD, 09/08/2019 11:40 AM Addendum We performed two biopsies of the skin of your upper left arm. We will call you with these results and arrange for follow up as needed. Please follow the wound care instructions given to you today to take care of the areas where we took the skin biopsies from. You can have the sutures removed after 10-14 days. You can have them removed at your family doctor. Please continue the prednisone taper as prescribed by your family doctor. We sent lab tests to the lab at the [facility] to look at your kidney numbers. Please continue the compression socks and elevation of your legs. Referring Provider: SELF [200] Allergies As of Date: 09/08/2019 Noted Allergy Reaction SEASONAL ALLERGIES 02/18/2017 14 - Other: See Comments Comments: burning itchy eyes Date Reviewed: 09/08/2019 Reviewed by: Devyn Andrews RN - Fully Assessed Reason for Visit: Follow Up [171] Cmt: Iga mediated leukocytoclastic vasculitis Primary Visit Diagnosis:Vasculitis (HCC) [I77.6] Other Visit Diagnoses:Dermatitis due to unknown cause [L30.9] Venous stasis dermatitis of both lower extremities [I87.2] Order(s):BASIC METABOLIC PNL [SQBMP] Order #: [id number] FUTURE UA CHEMSTRIP ONLY [SQUA] Order #: [id number] FUTURE SURGICAL PATHOLOGY [[id number]] Order #: [id number] #[id number] Prescriptions as of 09/08/2019 Sig: OMEPRAZOLE ORAL Take by mouth once daily. TRIAMCINOLONE ACETONIDE 0.1 %* Apply to right lower leg when* PREDNISONE 5 MG TABLET Take 10mg (2 pills) one day, * VERAPAMIL ER (SR) 240 MG TABL* Take 1 tablet by mouth once d* COLCHICINE 0.6 MG CAPSULE Start by taking one tablet da* ACETAMINOPHEN 500 MG TABLET Take 500 mg by mouth as neede* CAMPHOR-MENTHOL 0.5 %-0.5 % L* Apply 1 application to affect* PANTOPRAZOLE 40 MG TABLET,DEL* Take 1 tablet by mouth DAILY * TRAZODONE 150 MG TABLET Take 0.5 tablets by mouth warren* Medication notes this encounter TRIAMCINOLONE ACETONIDE 0.1 % TOPICAL OINTMENT >> Devyn Andrews, YI 09/08/2019 10:21 AM >> DEVYN ANDREWS [facility] Sep 08, 2019 10:21 AM PRN PREDNISONE 5 MG TABLET >> Devyn Andrews, YI 09/08/2019 10:20 AM >> DEVYN ANDREWS [facility] Sep 08, 2019 10:20 AM Restarted prednisone since rash appeared within last few weeks COLCHICINE 0.6 MG CAPSULE >> Devyn Andrews, YI 09/08/2019 10:19 AM >> DEVYN ANDREWS [facility] Sep 08, 2019 10:19 AM Not taking CAMPHOR-MENTHOL 0.5 %-0.5 % LOTION >> Devyn Andrews RN 09/08/2019 10:21 AM >> DEVYN ANDREWS [facility] Sep 08, 2019 10:21 AM Not taking PANTOPRAZOLE 40 MG TABLET,DELAYED RELEASE >> Devyn Andrews RN 09/08/2019 10:19 AM >> DEVYN ANDREWS [facility] Sep 08, 2019 10:19 AM Not taking TRAZODONE 150 MG TABLET >> Devyn Andrews RN 09/08/2019 10:19 AM >> JULIANA DEVYN [facility] Sep 08, 2019 10:19 AM Not taking Problem List As Of Date 09/08/2019 Noted Resolved Rash [R21] INVALID FOR* More... Sleep apnea [G47.30] INVALID FOR* More... Lower extremity edema [R60.0] INVALID FOR* More... HTN (hypertension) [I10] INVALID FOR* More... Abnormal chest x-ray [R93.89] INVALID FOR* More... SUMMARY INVALID FOR* More... Arm swelling [M79.89] INVALID FOR* More... IgA mediated leukocytoclastic vasculitis (HCC) *INVALID FOR* More... Other instructions from your clinician: We performed two biopsies of the skin of your upper left arm. We will call you with these results and arrange for follow up as needed. Please follow the wound care instructions given to you today to take care of the areas where we took the skin biopsies from. You can have the sutures removed after 10-14 days. You can have them removed at your family doctor. Please continue the prednisone taper as prescribed by your family doctor. We sent lab tests to the lab at the [facility] to look at your kidney numbers. Please continue the compression socks and elevation of your legs. Encounter Status:Closed by GLENDY DAUGHERTY MD on 09/19/19 Normal [facility] PROGRESSon 09-08-2019 PROGRESS HNO ID: [id number] Author: Glendy Daugherty Service: ? Author Type: Physician Type: Progress Notes Filed: 09/19/2019 11:39 AM Note Text: EST PATIENT CHIEF COMPLAINT: Follow Up (Iga mediated leukocytoclastic vasculitis) JACKELYN: 04/01/[address] Hutchins and Dr. Posey HISTORY OF PRESENT ILLNESS: Kirti Dickson is a 59 year old male here for evaluation of vasculitis. HPI (Rash) Location: legs, abdomen Duration: -First occurred about 3 years ago. Patient had extensive rash and ulceration. He was hospitalized at the time and diagnosed with IgA vasculitis. He was treated with a prednisone taper with resolution. Per note 03/2017, labs (UA and BMP) were unremarkable - normal Cr, no blood in the urine. -Has not had recurrence until 08/29/19 - woke up with purpuric rash on bilateral legs and abdomen during visit to [place]. Patient provides photographs of rash for review today. Patient was prescribed prednisone taper by his PCP (08/30) - 60 x 4 days, 40 x 4 days, etc. Patient self-decreased taper from 40 mg to 30 mg because prednisone is making him very hungry. Has improved on prednisone with no purpura today. Usually after taking prednisone, patient gets a rash on the arms. Appearance (size, shape, color): erythematous Symptoms (growing, itching, bleeding, tender): none Modifying factors: none Current treatment: prednisone Past treatments: permethrin - Per , pt's hands have been itching over the last few months which is what preceded the IgA vasculitis last time - and are concerned about kidney function because they were told the vasculitis can affect the kidneys, PCP checks lab work yearly - Had weight loss surgery in Jan 2019, has lost 200 lb since surgery Personal Dermatologic History History of skin cancer: No History of chronic skin disease: Yes vasculitis History of allergic rhinitis / asthma: Yes seasonal allergies Family History History of skin cancer: No History of chronic skin disease: No History autoimmune diseases: No Social History Tobacco use: No EtOh use: Yes occasional 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 Past Medical History PAST MEDICAL HISTORY Diagnosis Date - HTN (hypertension) - Hypertension - Sleep apnea REVIEW OF SYSTEMS: Constitutional: Denies fever, chills, unintentional weight loss Head: Denies headaches Eyes: Denies vision changes ENT: Denies hearing changes, rhinorrhea, dysphagia Cardiovascular: Denies chest pain or palpitations Respiratory: Denies SOB, cough, wheezing GI: Denies abd pain MSK: +Joint pains Neuro: Denies weakness, numbness, tingling Psych: Denies depression or anxiety Heme/Lymph: Denies easy bruising or bleeding Skin as per HPI Medications Current Outpatient Medications: OMEPRAZOLE ORAL Take by mouth once daily. triamcinolone acetonide (KENALOG) 0.1 % ointment Apply to right lower leg when itchy and scaly once daily Friday-Friday, taking weekends off. predniSONE (DELTASONE) 5 mg tablet Take 10mg (2 pills) one day, then 5mg (1pill) the next for 2 weeks, then decrease to 5 mg daily. verapamil SR (CALAN SR, ISOPTIN SR) 240 mg CR tablet Take 1 tablet by mouth once daily. colchicine 0.6 mg capsule Start by taking one tablet daily by mouth. If well tolerated after 1 week increase to 1 tablet twice daily. acetaminophen (TYLENOL EXTRA STRENGTH) 500 mg tablet Take 500 mg by mouth as needed. camphor-menthol (SARNA) lotion Apply 1 application to affected area as needed for Itching/Rash. pantoprazole DR (PROTONIX) 40 mg tablet Take 1 tablet by mouth DAILY (6 AM). traZODone (DESYREL) 150 mg tablet Take 0.5 tablets by mouth daily at bedtime. No current facility-administered medications for this visit. PHYSICAL EXAM: General: awake, alert, no acute distress Neuropsych: appropriate mood and affect Skin: Skin exam was performed today including the following: head and face, neck, chest (including breasts and axillae), abdomen, back, bilateral upper extremities, bilateral lower extremities, hands, feet. Pertinent findings include: -Felipe skin type: I-II -Numerous open comedones on bilateral temples c/w Favre-Racouchot -Scattered on the face are yellow shiny papules with central umbilication c/w sebaceous hyperplasia -Subtle, pink scattered papules on bilateral upper extremities - Abdominal and flank striae - Circumferentially involving the bilateral lower legs (R>L) are hyperpigmented eczematous plaques ASSESSMENT AND PLAN: Vasculitis Dermatitis of uncertain etiology -Patient with history of IgA vasculitis in the past. Now with new purpuric lesions suspicious for vasculitis on lower extremities and abdomen, resolved with prednisone -Subtle, scattered pink papules on the upper extremities today, not clinically consistent with classic vasculitis -Punch biopsy x 2 (EMI and DIF) performed today of lesions on arms to establish diagnosis, as below. -Recommend patient continue current course of prednisone as prescribed. -UA and BMP today to assess renal function given hx of IgA vasculitis and recent suspected flare of vasculitis. Punch biopsy to establish and confirm diagnosis. - Photo taken: Yes - Risks, benefits, alternatives and personnel required for punch biopsy reviewed with patient. Pt and physician agree as to site(s) to be biopsied. Pt verbalizes understanding and wishes to proceed. Pamela Hope MD - Site(s) anesthetized with buffered 1% Lidocaine with Epinephrine. 4mm punch biopsy x 2 performed. Hemostasis was obtained with interrupted sutures. Dressing applied. Written and verbal wound care instructions provided to patient. - Two specimens sent from L upper arm (superior) for EMI and L upper arm (inferior) for DIF to r/o IgA vasculitis - Mr. Dickson tolerated the procedure well and without complication. Follow-up for suture removal in 10-12 days. Bilateral lower extremity stasis dermatitis - Per review of prior notes, was involving LLE but now is bilateral - Encouraged to continue moisturization, compression stockings, and elevation - Will continue to follow with home vascular surgeon Follow up pending biopsy results. Devyn Andrews RN Pamela Hope MD Dermatology PGY-1 September 08, 2019 Attestation: I agree with the Chief Complaint, ROS, and Past Histories independently gathered by the clinical ict support engineer, and the remaining scribed note accurately describes my personal service to the patient. I saw and evaluated Kirti Dickson, as well as developed and discussed the assessment and plan with the Resident. I have reviewed the Resident's note and agree with the history and physical examination as described, as well as the assessment and plan of care. The resident's note was annotated by me as needed to reflect my direct input. I supervised the procedure(s) performed as documented above by the Resident. Glendy Daugherty MD [facility] SURGICAL PATHOLOGYon 019 SURGICAL PATHOLOGY Specimen originated from [facility] Specimen #: [id number] Submitting Physician: GLENDY DAUGHERTY MD FINAL DIAGNOSIS A. 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 B. Skin, left upper arm, inferior, punch biops (DIF) - Negative direct immunofluorescence (see comment). WFB/JOSE/henrietta/09/10/19 COMMENT A. Histologic sections reveal a relatively normal-appearing epidermis with overlying compact orthokeratosis. Within the papillary and superficial reticular dermis, there are a few scattered hyalinized blood vessels with perivascular lymphocytes and neutrophils appreciated. There is no significant hemorrhage or leukocytoclasis appreciated. The patient's chart was reviewed including current medications and clinical photos. Overall, these histologic findings could be consistent with a partially treated or resolving vasculitis. The features of amanda leukocytoclastic vasculitis are not appreciated. B. Direct immunofluorescent antibody localization demonstrates negative immunoreactivity for immunoglobulins IgG, IgA, IgM and complement C3 on sections of frozen skin. Laboratory Developed Test (LDT) Disclaimer:Positive and negative controls stain appropriately. Performance characteristics of immunohistochemical, immunofluorescent and chromogenic in-situ hybridization tests have been determined by [facility] Laboratory Medicine [place] ([facility]) in a manner consistent with CLIA requirements. One or more of these tests have not been cleared or approved by the FDA. [facility] is regulated under CLIA as qualified to perform high-complexity testing. These tests are used for clinical purposes. They should not be regarded as investigational or for research. Astrid Morris M.D. (Electronic Signature) _ SPECIMEN SUBMITTED A: SKIN, LEFT UPPER ARM, SUPERIOR, PUNCH BIOPSY B: SKIN, LEFT UPPER ARM, INFERIOR, DIF CLINICAL DATA HX OF IGA VASCULITIS A-B: R/O IGA VASCULITIS GROSS DESCRIPTION A. Received in formalin are two segments of jacinto soft skin aggregating to 0.3 x 0.3 x 0.3 cm. Specimen is sectioned. Totally submitted in formalin in one cassette. Gross examination performed at [facility], [address] [place] [address] 09/08/2019 5:40:43 PM B. Received in Power's is one piece of tissue measuring 0.3 cm in the greatest dimension. Totally frozen for Direct Immunofluorescence. Gross examination performed at [address] 09/08/2019 5:24:20 PM Date of Report: 09/10/2019 Date of Procedure: 09/08/2019 Date of Receipt: 09/08/2019 Submitted by: GLENDY DAUGHERTY MD Location: A61 Diagnostic interpretation performed at [place] [address]. CLIA Number: [id number] Normal [facility] Urinalysison 09-08-2019 Bilirubin, Urine Negative Normal Negative [facility] Comment on above: Performed By: #### U A #### [place] [address] Clarity (U) Clear Normal Clear [facility] Comment on above: Performed By: #### U A #### [facility] [address] [place], [place] [address] Color (U) Yellow Normal Yellow [facility] Comment on above: Performed By: #### U A #### [facility] [address] [place], [place] [address] Comments SEE COMMENT Normal [facility] Comment on above: Result Comment: Micr oscopic Examination Performed Performed By: #### U A #### [place] [address] [place], [place] [address] Glucose Ql (U) Negative Normal Negative [facility] Comment on above: Performed By: #### U A #### [place] [address] Hemoglobin/Blood,U r Negative Normal Negative [facility] Comment on above: Performed By: #### U A #### [facility] [address] [place], [place] [address] Ketones Ql (U) Negative Normal Negative [facility] Comment on above: Performed By: #### U A #### [place] [address] [place], [place] [address] Leukest Negative Normal Negative [facility] Comment on above: Performed By: #### U A #### [facility] [address] [place] [address] Nitrite Ql (U) Negative Normal Negative [facility] Comment on above: Performed By: #### U A #### [facility] [address] [place], [place] [address] pH (Bld) 7.0 Normal 4.5-8.0 [facility] Comment on above: Performed By: #### U A #### [facility] [address] [place], [place] [address] Protein (U) [Mass/Vol] Negative Normal Negative [facility] Comment on above: Performed By: #### U A #### [facility] [address] [place] [phone] RBC (U) [#/Vol] 0-3 Normal 0-3 [facility] Comment on above: Performed By: #### U A #### [facility] [address] [place] [phone] Specific Kiana, Ur 1.020 Normal 1.005-1.030 [facility] Comment on above: Performed By: #### U A #### [place] [address] [place] [phone] Urine Jaspal Comment SEE COMMENT Normal [facility] Comment on above: Result Comment: N/A Performed By: #### U A #### [place] [phone] Urobilinogen Qn (U) Normal Normal Normal [facility] Comment on above: Performed By: #### U A #### [place] [address] [place] [phone] WBC (Bld) [#/Vol] 0-5 Normal 0-5 [facility] Comment on above: Performed By: #### U A #### [place] [address] [place] [phone] Vital Signs Date Time Vital Sign Value Performing Clinician Teressa miller 02-25-2023 14:15-0400 Blood Pressure Location Cuco BAEZA [facility] [place] 02-25-2023 14:15-0400 Diastolic blood pressure 88 mm[Hg] Cuco BAEZA [facility] [place] 02-25-2023 14:15-0400 Heart rate 78 /min Cuco BAEZA [facility] [place] 02-25-2023 14:15-0400 Respiratory rate 16 /min Cuco BAEZA [facility] [place] 02-25-2023 14:15-0400 Systolic blood pressure 130 mm[Hg] Cuco BOOKERL [facility] [place] Encounters Encounter Date Encounter Type Care Provider Facility Start: 11-06-2023 End: [facility] Start: 09-29-2023 End: 09-29-2023 [facility] Start: 02-25-2023 End: 02-26-2023 ambulatory Cuco BAEZA Facility:[facility] Start: 02-25-2023 End: 02-25-2023 Patient encounter procedure Cuco BAEZA [facility] [place] Start: 02-07-2023 ambulatory Cuco BAEZA Facility:[facility] Start: 02-28-2022 End: 03-01-[address] BLAS EUBANKS Facility:[facility]1 Procedures Date Procedure Procedure Detail Performing Clinician Excision of uvula Cuco ARREDONDO LL Gastric sleeve Cuco BAEZA Immunizations Immunization Date Immunization Notes Care Provider Fa cility 11-14-2021 SARS-CoV-2 (COVID-19 ) mRNA BNT-162b2 vax Cuco NILL [facility] [place] 03-06-2021 SARS-CoV-2 (COVID-19 ) mRNA BNT-162b2 vax Cuco NILL [facility] [place] 02-12-2021 SARS-CoV-2 (COVID-19 ) mRNA BNT-162b2 vax Cuco NILL [facility] [place] NEGATED: Highlighted row has not occurred!02-25-2023 influenza virus vaccine, unspecified formulation Cuco BAEZA [facility] [place] Payers Date Payer Category Payer Unknown [id number] 2016 Self-pay 1960 Unknown [id number] 1960 Unknown [id number] 1960 Unknown [id number] Social History Date Type Detail Facility Start: 02-25-2023 Tobacco smoking status Never s moked tobacco (finding) [facility] [place] Tobacco smoking status Never [facility] [place] Sex Assigned At Male [facility] Functional Status Date Assessment Result Facility 02-25-2023 Functional Status N/A [facility] [place] Progress note 11-06-2023 Note Date & Type Note Facility 11-06-2023 Note [facility] Note Chief Complaint: Patient here for follow up echo. Still denies chest pain, but gets SOB w/ exertion. LE edema is minimal. HPI: Kirti Dickson is a 63 y.o. male with past medical history of morbid obesity s/p gastric sleeve surgery in 2017, hypertension, obstructive sleep apnea (noncompliant with CPAP), peripheral venous insufficiency, BLE stasis dermatitis, IgA vasculitis, seen in consultation for an abnormal stress test last week. He started experiencing fatigue and PND over the summer and was recommended a stress test by his PCP to evaluate his symptoms. He thinks his symptoms were related to Celebrex which he has since discontinued with improvement of his symptoms.He also recently started vitamin B12 supplements which he was not aware he needed following gastric surgery. He is dealing with a cold and recovering from a cough. He has PVI and chronic RLE edema, denies chest pain or palpitations. Father had CABG at age 64, no known family history of SCD. Update 11/06/2023: The patient continues to have exertional shortness of breath. This started in the spring. It sounds like it was temporally related to her COVID infection in the months before. However, he has been on Lasix for more than 5 years. He has chronic lower extremity edema related to peripheral vascular/venous insufficiency. It is hard to differentiate the causes of his shortness of breath. Cardiology ROS: Review of Systems Constitutional: Positive for malaise/fatigue. Cardiovascular: Positive for dyspnea on exertion and leg swelling (improving). Musculoskeletal: Positive for arthritis, back pain and joint pain. All other systems reviewed and are negative. Past Medical History He has a past medical history of Dyspnea and Sleep apnea. Surgical History He has a past surgical history that includes Stomach surgery (2017) and Uvulopalatopharyngoplasty. Social History He reports that he has never smoked. He has never used smokeless tobacco. He reports current alcohol use. No history on file for drug use. Family History Family History Problem Relation Name Age of Onset Coronary artery disease Father Other (CABG) Father Allergies Patient has no known allergies. Medications Current Outpatient Medications: furosemide (Lasix) 40 mg tablet, Take 40 mg by mouth 3 (three) times a week., Disp: , Rfl: traZODone (Desyrel) 50 mg tablet, TAKE 1 TO 3 TABLETS BY MOUTH AT BEDTIME NEEDED FOR SLEEP, Disp: , Rfl: verapamil ER (Veralan) 180 mg 24 hr capsule, Take by mouth in the morning., Disp: , Rfl: Last Recorded Vitals BP 152/83 (BP Location: Left arm, Patient Position: Sitting) Pulse 80 Ht 1.829 m (6') Wt (!) 188 kg (414 lb) SpO2 92% BMI 56.15 kg/m??? Physical Examination: GENERAL: alert and oriented x3, well developed, in no acute distress. HEAD: atraumatic, normocephalic. EYES: ANGEL, EOMI. NECK: trachea midline, no JVD present, no carotid bruits present. CARDIAC: S1, S2 present. RRR. No murmur, rubs, or gallops. RESPIRATORY: CTAB, no increased effort of breathing, no rales, rhonchi, or wheezing. ABDOMEN: soft, nontender, nondistended. EXTREMITIES: no lower extremity edema, peripheral pulses are 2+ bilaterally. No rash/skin discoloration present. NEURO: strength/sensation equal and symmetric in bilateral upper and lower extremities. PSYCH: appropriate mood, affect, and judgement. Labs: 08/06/2023 WBC 2.8, hemoglobin 13.1, hematocrit 40.5, platelets 102 Sodium 137, potassium 4.1, chloride 101, CO2 29.6, BUN 13, serum creatinine 0.83, estimated GFR greater than 60% Hemoglobin A1c 6.2% Total cholesterol 146, LDL 78.4, HDL 58, triglycerides 48 Testing/Procedures: Stress test: 09/19/2023 Moderate size moderate severity fixed defect in the inferior wall without definitive evidence of reversible ischemia Dilated left ventricle, EDV 163 mm Low left ventricular ejection fraction of 49% Normal exercise stress test Echocardiogram 10/2023: CONCLUSION: 1. Global left ventricular systolic function is difficult to assess; visually estimated ejection fraction is 55 to 60% 2. The right ventricle is normal in size and systolic function 3. Moderately increased left ventricular wall thickness 4. Valves are poorly seen; no obvious valvular abnormalities Assessment: Dyspnea on exertion/anginal equivalent Family history of coronary artery disease Thrombocytopenia Peripheral venous insufficiency Essential hypertension Morbid obesity Abnormal stress test Plan: Given the patient's symptoms, risk factor profile, and persistent symptoms as well as the abnormal stress test, I recommended proceeding with cardiac catheterization; we will schedule him for right heart catheterization and coronary angiography via right internal jugular and left radial approach. He has heart failure with preserved ejection fraction; will initiate spironolactone 25 m (more content not included)... [facility] Progress note 09-29-2023 Note Date & Type Note Facility 09-29-2023 Note Cardiovascular Medic in[facility] SUBJECTIVE No chief complaint on file. HPI Kirti Dickson is a 63 y.o. male with past medical history of morbid obesity s/p gastric sleeve surgery in 2017, hypertension, obstructive sleep apnea (noncompliant with CPAP), peripheral venous insufficiency, BLE stasis dermatitis, IgA vasculitis, seen in consultation for an abnormal stress test last week. He started experiencing fatigue and PND over the summer and was recommended a stress test by his PCP to evaluate his symptoms. He thinks his symptoms were related to Celebrex which he has since discontinued with improvement of his symptoms.He also recently started vitamin B12 supplements which he was not aware he needed following gastric surgery. He is dealing with a cold and recovering from a cough. He has PVI and chronic RLE edema, denies chest pain or palpitations. Father had CABG at age 64, no known family history of SCD. No Known Allergies Patient Active Problem List Diagnosis Abnormal chest x-ray Anxiety Arm swelling Dyspnea Essential hypertension History of bariatric surgery History of erectile dysfunction IgA mediated leukocytoclastic vasculitis (CMS/HCC) Insomnia Lower extremity edema Morbid obesity (CMS/HCC) Rash Senile nevus of skin Sleep apnea Varicose veins of lower extremity Past Medical History: Diagnosis Date Dyspnea Sleep apnea had surgery, untreated now Past Surgical History: Procedure Laterality Date STOMACH SURGERY 2017 gastric sleeve UVULOPALATOPHARYNGOPLASTY Family History Problem Relation Name Age of Onset Coronary artery disease Father Other (CABG) Father Social History Tobacco Use Smoking status: Never Smokeless tobacco: Never Substance Use Topics Alcohol use: Yes Review of Systems Cardiovascular: Positive for dyspnea on exertion, leg swelling and paroxysmal nocturnal dyspnea. Negative for chest pain, claudication, irregular heartbeat, near-syncope, orthopnea, palpitations and syncope. OBJECTIVE Visit Vitals BP (!) 155/93 (BP Location: Left wrist, Patient Position: Sitting) Pulse 62 Ht 1.829 m (6') Wt (!) 183 kg (403 lb) SpO2 92% BMI 54.66 kg/m??? Smoking Status Never BSA 3.05 m??? Medications: Current Outpatient Medications: furosemide (Lasix) 40 mg tablet, Take 40 mg by mouth 3 (three) times a week., Disp: , Rfl: traZODone (Desyrel) 50 mg tablet, TAKE 1 TO 3 TABLETS BY MOUTH AT BEDTIME NEEDED FOR SLEEP, Disp: , Rfl: verapamil ER (Veralan) 180 mg 24 hr capsule, Take by mouth in the morning., Disp: , Rfl: Physical Exam Constitutional: Appearance: He is obese. Cardiovascular: Rate and Rhythm: Normal rate and regular rhythm. Pulmonary: Effort: Pulmonary effort is normal. Skin: General: Skin is warm and dry. Neurological: General: No focal deficit present. Mental Status: He is alert and oriented to person, place, and time. Labs: 08/06/2023 WBC 2.8, hemoglobin 13.1, hematocrit 40.5, platelets 102 Sodium 137, potassium 4.1, chloride 101, CO2 29.6, BUN 13, serum creatinine 0.83, estimated GFR greater than 60% Hemoglobin A1c 6.2% Total cholesterol 146, LDL 78.4, HDL 58, triglycerides 48 Testing/Procedures: Stress test: 09/19/2023 Moderate size moderate severity fixed defect in the inferior wall without definitive evidence of reversible ischemia Dilated left ventricle, EDV 163 mm Low left ventricular ejection fraction of 49% Normal exercise stress test No echocardiogram results found for the past 14 days No echocardiogram results found for the past 12 months No results found for this or any previous visit (from the past 4464 hour(s)). ASSESSMENT/PLAN: Diagnosis Plan 1. Abnormal stress test Transthoracic echo (TTE) complete 2. Dyspnea on exertion Transthoracic echo (TTE) complete 3. Thrombocytopenia (CMS/HCC) 4. Peripheral venous insufficiency 5. Essential hypertension 1. Abnormal stress test -His echocardiogram showed moderate-sized fixed defect without reversible ischemia and a reduced ejection fraction of 49%. His dyspneic symptoms are improving. Will obtain echocardiogram to assess for SHD in absence of chest pain. His recent labs showed thrombocytopenia with a platelet count of 102k. I recommended he get evaluated and treated for thrombocytopenia in the interim. He will follow-up with echo results to establish attending. 2. Dyspnea on exertion -No ischemic defects on stress test, will proceed with echo as noted. 3. Thrombocytopenia -Will discussed follow-up with PCP vs hematology, he will follow-up with PCP for further evaluation. 4. PVI -Stable, follows with vascular. 5. Essential hypertension -Elevated here today, following with PCP. Follow up in about 6 weeks (around 11/10/2023). Nanette Fletcher APRN-[employer] [facility] Cardiovascular Medicine [facility] Progress note 09-29-2023 Note Date & Type Note Facility 09-29-2023 Note New patient here to establish care. Ref from Dr. Eubanks for abnormal stress test. He recently stopped taking Celebrex and thinks a lot of his symptoms have improved since stopping. Denies chest pain, palpitations, and lightheadedness. Father had CABG at age 64. Recently cut back his ETOH intake to just weekends. Review of Systems Constitutional: Positive for malaise/fatigue. Cardiovascular: Positive for leg swelling (improving) and orthopnea (improving). Musculoskeletal: Positive for arthritis, back pain and joint pain. All other systems reviewed and are negative. [facility] Clinical Note 02-25-2023 Note Date & Type Note Facility 02-25-2023 Note Chief Complaint consultation for scalp nevus HPI Staff 62 year old male presents on consultation form Dr. Eubanks for scalp nevus. Reports slightly pigmented lesion to left parietal scalp. Present approximately 6 months. Reports the area will raise and slough off. Denies discomfort or tenderness. States this does not bleed, drain or itch. History of Present Illness 62 yo male with h/o htn, referred for scalp lesion, small, raised, sloughs off intermittently, no pain or bleeding, no h/o skin cancer; on Celebrex daily, no asa. Review of Systems PHQ Score Initial Depression Screen Score: 0 ROS - Provider Constitutional: no fever, no sweats, no weight loss. Eyes: no glasses, no blurred vision, no visual loss. ENMT: no dentures, no hoarseness, no swallowing difficulties, no hearing loss, no ear infection(s), no nose bleeds. Cardiovascular: normal blood pressure, no chest pain, regular heartbeat, no heart murmur. Respiratory: no shortness of breath, no cough, no asthma, no wheezing. Gastrointestinal: no nausea, no vomiting, no diarrhea, no constipation, no blood in stool, no change in bowel habits, no abdominal pain, no hepatitis. Genitourinary: no kidney stones, no urine infection, no dysuria. Musculoskeletal: no pain, no weakness. Skin: no changing moles, no rash, no skin lumps. Neurologic: no seizures, no epilepsy, no headache. Psychiatric: no emotional or psychiatric problem. Heme/Lymph: no bleeding problems, no anemia, no blood clots, no transfusions. Allergy/Immunologic: no swollen lymph nodes/glands, no IV drug abuse. Other: Additional ROS info: Except as noted in the above Review of Systems and in the History of Present Illness, all other systems have been reviewed and are negative or noncontributory. Physical Exam Vitals & Measurements HR: 78(Peripheral) RR: 16 BP: 130/88 HT: 72 in HT: 182.88 cm WT: 181 kg WT: 398.2 lb BMI: 54.12 skin: left parietal scalp with slight area of erythema/pigmentation change; 3 mm, no raised or ulcerated areas, nontender. Assessment/Plan 1. Lesion of skin of scalp (L98.9: Disorder of the skin and subcutaneous tissue, unspecified) raised area has sloughed off, difficult to evaluate; no worrisome features currently; follow up in recurs; call with problems/questions. Follow-up No qualifying data available Problem List/Past Medical History Ongoing BMI 50.0-59.9, adult HTN (hypertension) Lesion of skin of scalp Morbid obesity Historical No qualifying data Procedure/Surgical History Gastric sleeve, Uvulectomy. Medications CeleBREX 100 mg Cap, 100 mg= 1 cap(s), Oral, Daily Lasix 40 mg Tab, 40 mg= 1 tab(s), Oral, Daily traZODONE 50 mg Tab, 1-3 tabs, Oral, Once a day (at bedtime), PRN verapamil 180 mg Cap-ER, 180 mg= 1 cap(s), Oral, Daily Allergies No Known Allergies Social History Alcohol Current, Beer, Liquor, 1-2 times per month, Previous treatment: None. Alcohol use interferes with work or home: No. Drinks more than intended: Yes. Others hurt by drinking: No. Household alcohol concerns: No., 12/27/2016 Substance Abuse - Denies Substance Abuse, 02/25/2023 Tobacco Never (less than 100 in lifetime) Tobacco Use:. Never Smokeless Tobacco Use:., 02/25/2023 Family History Heart disease: Father. Hypertension: Father. Immunizations Vaccine Date Status Comments influenza virus vaccine, inactivated - Not Given Patient Refuses SARS-CoV-2 (COVID-19) mRNA BNT-162b2 vax 11/14/2021 Recorded SARS-CoV-2 (COVID-19) mRNA BNT-162b2 vax 03/06/2021 Recorded SARS-CoV-2 (COVID-19) mRNA BNT-162b2 vax 02/12/2021 Recorded [facility] Comment on above: Result Comment: Elec tronically Signed By: FELISHA MASTERSON, Cuco Ingram\Date and Time Signed: 02/25/23 15:46 EDT Evaluation + Plan note Note Date & Type Note Facility Evaluation + Plan note No data available for this section [facility] Discharge instructions Note Date & Type Note Facility Hospital Discharge instructions No data available for this section [facility] [place] Progress note Note Date & Type Note Facility Progress note No data available for this section General [facility] [place] Summary Purpose Family History No Family History Records FoundNo Family History Records FoundNo Family History Records FoundNo Family History Records Found Advance Directives No Advanced Directives Records FoundNo Advanced Directives Records FoundNo Advanced Directives Records FoundNo Advanced Directives Records Found Additional Source Comments (unrecognized sect ion and content) No Status Records FoundNo Status Records FoundNo Status Records FoundNo Status Records Found INFORMATION SOURCE (unrecogn ized section and content) DATE CREATED AUTHOR 09/19/2019 [facility] DATE CREATED AUTHOR AUTHOR'S ORGANIZ ATION 09/21/2022 [facility] DATE CREATED AUTHOR AUTHOR'S ORGANIZ ATION 02/28/2023 [facility] DATE CREATED AUTHOR AUTHOR'S ORGANIZ ATION 11/08/2023 [facility] Patient Care team informatio n (unrecognized section and content) Personnel Name: Blas Eubanks MD Address: Address: [address] [place] [address] FOR RECORDS PERTAINING TO PATIENTS WHO ARE OR HAVE BEEN ENROLLED IN A CHEMICAL DEPENDENCY/SUBSTANCEABUSE PROGRAM, SOME INFORMATION MAY BE OMITTED. This clinical summary was aggregated from multiple sources. Caution should be exercised in using it in the provision of clinical care. This summary normalizes information from multiple sources, and as a consequence, information in this document may materially change the coding, format and clinical context of patient data. In addition, data may be omitted in some cases. CLINICAL DECISIONS SHOULD BE BASED ON THE PRIMARY CLINICAL RECORDS. [facility] [employer] provides no warranty or guarantee of the accuracy or completeness of information in this document.
--- NOTE | 2023-12-15 10:52 | XR_ITS ---
The [address] [address] Patient Name: KIRTI DICKSON MRN: [id number] date: 1960 Sex: M Assigned Patient Location: LAB Current Patient Location: LAB Accession/Order Number: [id number] Exam Date: 12/15/2023 10:45 Report Date: 12/15/2023 11:06 At the request of: BLAS SANDOVAL Procedure: XR chest 2V EXAM: XR chest 2V HISTORY: hypertension I10 COMPARISON: Chest study dated 09/19/2023 TECHNIQUE: PA and lateral views of the chest were obtained. FINDINGS: Heart is within the upper limits of normal for size. Prominence of the right hilar region may be vascular nature, other possibility cannot be entirely excluded. Follow-up as needed. Calcified granuloma in the right similar to prior study. A few small linear densities likely in the right midlung field anteriorly compatible with atelectatic and/or fibrotic changes. No obvious consolidated infiltrate. Uxpw-bd-abispsst degenerative changes in the dorsal spine with slight convexity to the right. XR/XR chest 2V IMPRESSION: Prominence of the right hilar region which may be vascular in nature, other possibility cannot be entirely excluded. Mild atelectatic and/or fibrotic changes on the right as noted. No obvious consolidated infiltrate. Follow-up as needed. Electronically authenticated by: LETI MANN Date: 12/15/2023 11:06
[2023-12-15 11:09] LABS: Anion Gap 12.8; BUN Creatinine Ratio 18.9; Calcium 9.1 mg/dL (8.5-10.1); Carbon Dioxide 28.4 mmol/L (21.0-32.0); Chloride 100 mmol/L (98-107); Estimated GFR (African America >60 (>=60); Estimated GFR (Non-African Ame >60 (>=60); Glucose 103 mg/dL (74-106); Potassium 4.2 mmol/L (3.5-5.1); Sodium 137 mmol/L (136-145)
== END 2023-12-15 10:09 | disposition home or self-care (01) ==
LOC: LAB 10:13
PROVIDERS: PCP Family Medicine; Visit Provider Family Medicine
DX: Z01.818 Encounter for other preprocedural examination (principal); I10 Essential (primary) hypertension
CPT/HCPCS: 36415; 71046; 80048; 85025

== ENCOUNTER 2023-12-15 10:15 | Outpatient (OUT) | payer OTHER, SELFPAY ==
--- OUTSIDE RECORDS SUMMARY | 2023-12-15 10:19 | XMS_ITS | CCD ---
Author Name Unknown Address [address] [place] [address] Organization [facility] Care Team Providers Care Yarn Comber Name Role Phone DR BLAS EUBANKS Admitting [...] Range Facility Office Visiton 11-06-2023 Follow-up visit [id number] Jas Dickson 1960 Date Provider Department [place] 11/06/2023 271-THUAN YADAV GERHARD [facility] Family History Problem Relation Age of Onset Coronary artery disease Father Other Father Family Status - Relation Status Age at Father Level of Service:28132 NM OFFICE/OUTPATIENT ESTABLISHED HIGH MDM 40-54 MIN Normal [facility] Orders Onlyon 11-06-2023 Orders Only [id number] Jas Dickson R 1960 M Date Provider Department Center 11/06/2023 Rosalinda-MARSHA RYDER GERHARD [facility] Family History Problem Relation Age of Onset Coronary artery disease Father Other Father Family Status - Relation Status Age at Father Normal [facility] Office Visiton 09-29-2023 Follow-up visit [id number] Jas Dickson 1960 M Date Provider Department Center 09/29/2023 NANETTE CRAFT GERHARD [facility] Family History Problem Relation Age of Onset Coronary artery disease Father Other Father Family Status - Relation Status Age at Father Level of Service:71463 NM OFFICE/OUTPATIENT NEW MODERATE MDM 45-59 MINUTES Normal [facility] Ambulatory Visit Summaryon 0 02-25-2023 Ambulatory Visit [...] 50.0-59.9, adult HTN (hypertension) Morbid obesity Normal [facility] Physician Referralon 023 Physician Referral [id number] [facility] CBC AUTO DIFFon 02-28-2022 BASO # 0.0 103/ul Normal 0.0-0.1 [facility] Comment on above: Performed By: #### C BC #### [facility] [address] [place] [address] Dr. Bashir Lemons Basophils/100 WBC (Bld) 0.5 % Normal 0.2-2.0 [facility] Comment on above: Performed By: #### C BC #### [facility] [address] [place] [address] Dr. Bashir Lemons EO # 0.0 103/ul Normal 0.0-0.7 [facility] Comment on above: Performed By: #### C BC #### [facility] [address] [place] [address] Dr. Bashir Lemons Eosinophils/100 WBC (Bld) 0.0 % Critically low 0.9-7.0 [facility] Comment on above: Performed By: #### C BC #### [facility] [address] [place] [address] Dr. Bashir Lemons Erythrocyte distribution width (RBC) [Ratio] 12.3 % Normal 11.0-15.0 [facility] Comment on above: Performed By: #### C BC #### [facility] [address] [place] [address] Dr. Bashir Lemons Hematocrit (Bld) [Volume fraction] 41.9 % Critically low 42.0-54.0 [facility] Comment on above: Performed By: #### C BC #### [facility] [address] [place] [address] Dr. Bashir Lemons Hemoglobin (Bld) [Mass/Vol] 13.8 g/dL Critically low 14.0-18.0 [facility] Comment on above: Performed By: #### C BC #### [facility] [address] [place] [address] Dr. Bashir Lemons IG # 0.02 10e3/ul Normal 0.00-0.03 [facility] Comment on above: Performed By: #### C BC #### [facility] [address] [place] [address] Dr. Bashir Lemons IG % 0.5 % Normal 0.0-0.5 [facility] Comment on above: Performed By: #### C BC #### [facility] [address] [place] [address] Dr. Bashir Lemons LYMPH # 1.3 103/ul Normal 1.2-3.8 [facility] Comment on above: Performed By: #### C BC #### [facility] [address] [place] [address] Dr. Bashir Lemons Lymphocytes/100 WBC (Bld) 34.2 % Normal 20.5-60.0 [facility] Comment on above: Performed By: #### C BC #### [facility] [address] [place] [address] Dr. Bashir Lemons MANUAL DIFF REQ NO Normal [facility] Comment on above: Performed By: #### C BC #### [facility] [address] [place] [address] Dr. Bashir Lemons MCH (RBC) [Entitic mass] 28.9 pg Normal 25.9-34.0 [facility] Comment on above: Performed By: #### C BC #### [facility] [address] [place] [address] Dr. Bashir Lemons MCHC (RBC) [Mass/Vol] 32.9 g/dL Normal 29.9-35.2 [facility] Comment on above: Performed By: #### C BC #### [facility] [address] [place] [address] Dr. Bashir Lemnos MCV (RBC) [Entitic vol] 87.8 fL Normal 80.0-94.0 [facility] Comment on above: Performed By: #### C BC #### [facility] [address] [place] [address] Dr. Bashir Lemons MONO # 0.5 103/ul Normal 0.3-0.8 [facility] Comment on above: Performed By: #### C BC #### [facility] [address] [place] [address] Dr. Bashir Lemons Monocytes/100 WBC (Bld) 12.1 % Critically high 1.7-12.0 [facility] Comment on above: Performed By: #### C BC #### [facility] [address] [place] [address] Dr. Bashir Lemons NEUT # 2.0 103/ul Normal 1.4-6.5 [facility] Comment on above: Performed By: #### C BC #### [facility] [address] [place] [address] Dr. Bashir Lemons Neutrophils/100 WBC (Bld) 52.7 % Normal 43.0-75.0 [facility] Comment on above: Performed By: #### C BC #### [facility] [address] [place] [address] Dr. Bashir Lemons Platelet mean volume (Bld) [Entitic vol] 9.5 fL Normal 9.5-13.5 [facility] Comment on above: Performed By: #### C BC #### [facility] [address] [place] [address] Dr. Bashir Lemons PLT 149 103/ul Critically low 150-450 [facility] Comment on above: Performed By: #### C BC #### [facility] [address] [place] [address] Dr. Bashir Lemons RBC 4.77 106/ul Normal 4.70-6.10 [facility] Comment on above: Performed By: #### C BC #### [facility] [address] [place] [address] Dr. Bashir Lemons WBC 3.8 103/ul Critically low 4.0-11.0 [facility] Comment on above: Performed By: #### C BC #### [facility] [address] [place], [place] [address] Dr. Bashir Lemons Basic Metabolic Panlon 09-08 Anion gap [Moles/Vol] 13 mmol/L Normal 9-18 [facility] Comment on above: Performed By: #### B MP #### [facility] [address] [place] [address] Calcium [Mass/Vol] 9.7 mg/dL Normal 8.5-10.2 [facility] Comment on above: Performed By: #### B MP #### [facility] [employer] [place] [address] Chloride [Moles/Vol] 100 mmol/L Normal 97-105 [facility] Comment on above: Performed By: #### B MP #### [facility] [employer] [facility] [place] [address] CO2 [Moles/Vol] 25 mmol/L Normal 22-30 [facility] Comment on above: Performed By: #### B MP #### [place] [address] [place] [id number] Creatinine [Mass/Vol] 0.72 mg/dL Low 0.73-1.22 [facility] Comment on above: Performed By: #### B MP #### [facility] [employer] [facility] [place] [address] eGFR- Amer. >60 Normal [facility] Comment on above: Performed By: #### B MP #### [facility] [employer] [place], [place] [address] GFR/1.73 sq M predicted among non-blacks MDRD (S/P/Bld) [Vol rate/Area] mL/min/{1.73_m2} Normal [facility] Comment on above: Result Comment: eGFR (Estimated [...] GFR. Performed By: #### B MP #### [facility] [employer] [address] [place] [address] Glucose [Mass/Vol] 120 mg/dL High 74-99 [facility] Comment on above: Result Comment: The [place] [employer] (ADA) provides guidance for cutoff [...] Standards of Medical Care in Diabetes 2016, [place] [employer]. Diabetes Care. 2016.39(Suppl 1). Performed By: #### B MP #### [facility] [employer] [address] [place] [phone] Potassium [Moles/Vol] 4.3 mmol/L Normal 3.7-5.1 [facility] Comment on above: Performed By: #### B MP #### [facility] [employer] [address] [place], [place] [address] Sodium [Moles/Vol] 138 mmol/L Normal 136-144 [facility] Comment on above: Performed By: #### B MP #### [facility] [employer] [address] [place], [place] [address] Urea nitrogen [Mass/Vol] 22 mg/dL Normal 9-24 [facility] Comment on above: Performed By: #### B #### [facility] [address] [place], [place] [address] CNOVon 09-08-2019 CNOV Office Visit (DERMMN ) KIRTI DICKSON ([id number]) 1960 M Date Time Provider Department 09/08/19 [...] bilateral legs and abdomen during visit to [place]. 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 to look at your kidney numbers. Please [...] [I87.2] Order(s):BASIC METABOLIC PNL [SQBMP] Order #: [id number] FUTURE UA CHEMSTRIP ONLY [SQUA] Order #: [id number] FUTURE SURGICAL PATHOLOGY [[id number]] Order #: [id number]. #:[id number] Prescriptions as of 09/08/2019 Sig: OMEPRAZOLE ORAL [...] YI 09/08/2019 10:21 AM >> DEVYN ANDREWS [facility] Sep 08, 2019 10:21 AM PRN PREDNISONE 5 MG TABLET >> Devyn Andrews, YI 09/08/2019 10:20 AM >> DEVYN ANDREWS [facility] Sep 08, 2019 10:20 AM Restarted prednisone since rash appeared within last few weeks COLCHICINE 0.6 MG CAPSULE >> Devyn Andrews, YI 09/08/2019 10:19 AM >> DEVYN ANDREWS [facility] Sep 08, 2019 10:19 AM Not taking CAMPHOR-MENTHOL 0.5 %-0.5 % LOTION >> Devyn Andrews RN 09/08/2019 10:21 AM >> DEVYN ANDREWS [facility] Sep 08, 2019 10:21 AM Not taking PANTOPRAZOLE 40 MG TABLET,DELAYED RELEASE >> Devyn Andrews RN 09/08/2019 10:19 AM >> DEVYN ANDREWS [facility] Sep 08, 2019 10:19 AM Not taking TRAZODONE 150 MG TABLET >> Devyn Andrews RN 09/08/2019 10:19 AM >> JULIANA DEVYN [facility] Sep 08, 2019 10:19 AM Not [...] lab tests to the lab at the [facility] to look at your kidney numbers. Please continue the compression socks and elevation of your legs. Encounter Status:Closed by GLENDY DAUGHERTY MD on 09/19/19 Normal [facility] PROGRESSon 09-08-2019 PROGRESS HNO ID: [id number] Author: Glendy Daugherty Service: ? Author Type: [...] bilateral legs and abdomen during visit to [place]. 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 Glendy Daugherty MD [facility] SURGICAL PATHOLOGYon 019 SURGICAL PATHOLOGY Specimen originated from [facility] Specimen #: [id number] Submitting Physician: GLENDY DAUGHERTY MD FINAL DIAGNOSIS [...] in-situ hybridization tests have been determined by [facility] Medicine [place] ([facility]) in a manner consistent with CLIA requirements. One or more of these tests have not been cleared or approved by the FDA. [facility] is regulated under CLIA as qualified to [...] in one cassette. Gross examination performed at [facility], [address] [place] [address] 09/08/2019 5:40:43 PM B. Received in Power[employer] is one piece of tissue measuring 0.3 cm in the greatest dimension. Totally frozen for Direct Immunofluorescence. Gross examination performed at [address] 09/08/2019 5:24:20 PM Date of Report: 09/10/2019 Date of Procedure: 09/08/2019 Date of Receipt: 09/08/2019 Submitted by: GLENDY DAUGHERTY MD Location: A61 Diagnostic interpretation performed at [place] [address]. CLIA Number: [id number] Normal [facility] Urinalysison 09-08-2019 Bilirubin, Urine Negative Normal Negative [facility] Comment on above: Performed By: #### U A #### [place] [address] Clarity (U) Clear Normal Clear [facility] Comment on above: Performed By: #### U A #### [facility] [address] [place], [place] [address] Color (U) Yellow Normal Yellow [facility] Comment on above: Performed By: #### U A #### [facility] [address] [place], [place] [address] Comments SEE COMMENT Normal [facility] Comment on above: Result Comment: Micr oscopic Examination Performed Performed By: #### U A #### [place] [address] [place], [place] [address] Glucose Ql (U) Negative Normal Negative [facility] Comment on above: Performed By: #### U A #### [place] [address] Hemoglobin/Blood,U r Negative Normal Negative [facility] Comment on above: Performed By: #### U A #### [facility] [address] [place], [place] [address] Ketones Ql (U) Negative Normal Negative [facility] Comment on above: Performed By: #### U A #### [place] [address] [place], [place] [address] Leukest Negative Normal Negative [facility] Comment on above: Performed By: #### U A #### [facility] [address] [place] [address] Nitrite Ql (U) Negative Normal Negative [facility] Comment on above: Performed By: #### U A #### [facility] [address] [place], [place] [address] pH (Bld) 7.0 Normal 4.5-8.0 [facility] Comment on above: Performed By: #### U A #### [facility] [address] [place], [place] [address] Protein (U) [Mass/Vol] Negative Normal Negative [facility] Comment on above: Performed By: #### U A #### [facility] [address] [place] [phone] RBC (U) [#/Vol] 0-3 Normal 0-3 [facility] Comment on above: Performed By: #### U A #### [facility] [address] [place] [phone] Specific [place], Ur 1.020 Normal 1.005-1.030 [facility] Comment on above: Performed By: #### U A #### [place] [address] [place] [phone] Urine Jaspal Comment SEE COMMENT Normal [facility] Comment on above: Result Comment: N/A Performed By: #### U A #### [place] [phone] Urobilinogen Qn (U) Normal Normal Normal [facility] Comment on above: Performed By: #### U A #### [place] [address] [place] [phone] WBC (Bld) [#/Vol] 0-5 Normal 0-5 [facility] Comment on above: Performed By: #### U A #### [place] [address] [place] [phone] Vital Signs Date Time Vital Sign Value Performing Clinician Teressa miller 02-25-2023 14:15-0400 Blood Pressure Location Cuco BAEZA [facility] [place] 02-25-2023 14:15-0400 Diastolic blood pressure 88 mm[Hg] [facility]o BAE[facility] [place] 02-25-2023 14:15-0400 Heart rate 78 /min Cuco BAEZA [facility] [place] 02-25-2023 14:15-0400 Respiratory rate 16 /min Cuco BAEZA [facility] [place] 02-25-2023 14:15-0400 Systolic blood pressure 130 mm[Hg] Cuco BOOKERL [facility] [place] Encounters Encounter Date Encounter Type Care Provider Facility Start: 11-06-2023 End: [facility]06[facility] Start: 09-29-2023 End: 09-29-2023 [facility] Start: 02-25-2023 End: 02-26-2023 ambulatory Cuco BAEZA Facility:[facility] Start: 02-25-2023 End: 02-25-2023 Patient encounter procedure Cuco BAEZA [facility] [place] Start: 02-07-2023 ambulatory Cuco BAEZA Facility:Amy [facility] [...] mRNA BNT-162b2 vax [facility]o NILL [facility] [place] 02-12-2021 SARS-CoV-2 (COVID-19 ) mRNA BNT-162b2 vax [facility]o NILL [facility] [place] NEGATED: Highlighted row has not occurred!02-25-2023 influenza virus vaccine, unspecified formulation Cuco BAEZA [facility] [place] Payers Date Payer Category Payer Unknown [id number] 2016 Self-pay 1960 Unknown [id number] 1960 Unknown [id number] 1960 Unknown [id number] Social History Date Type Detail Facility Start: 02-25-2023 Tobacco smoking status Never s moked tobacco (finding) [facility] [place] Tobacco smoking status Never [facility] [place] Sex Assigned At Male [facility] Functional Status Date Assessment Result Facility 02-25-2023 Functional Status N/A [facility] [place] Progress note 11-06-2023 Note Date & Type Note Facility 11-06-2023 Note [facility] Note Chief Complaint: Patient [...] spironolactone 25 m (more content not included)... [facility] Progress note 09-29-2023 Note Date & Type Note Facility 09-29-2023 Note [facility] Medic [facility] [place] [facility] SUBJECTIVE No chief complaint on file. [...] about 6 weeks (around 11/10/2023). Nanette Fletcher APRN-PROCESSING ARCHIVIST [facility] Cardiovascular Medicine [facility] Progress note 09-29-2023 Note Date & Type [...] All other systems reviewed and are negative. [facility] Clinical Note 02-25-2023 Note Date & Type [...] SARS-CoV-2 (COVID-19) mRNA BNT-162b2 vax 02/12/[address] [facility] Comment on above: Result Comment: Elec tronically Signed By: FELISHA MASTERSON, Cuco nIgram\Date and Time Signed: 02/25/23 15:46 EDT Evaluation + Plan note Note Date & Type Note Facility Evaluation + Plan note No data available for this section [facility] Discharge instructions Note Date & Type Note Facility Hospital Discharge instructions No data available for this section [facility] [place] Progress note Note Date & Type Note Facility Progress note No data available for this section [facility] [place] Summary Purpose Family History No Family History [...] section and content) DATE CREATED AUTHOR 09/19/2019 [facility] DATE CREATED AUTHOR AUTHOR'S ORGANIZ ATION 09/21/2022 [facility] DATE CREATED AUTHOR AUTHOR'S ORGANIZ ATION 02/28/[address] [facility] DATE CREATED AUTHOR AUTHOR'S ORGANIZ ATION 11/08/2023 [facility] Patient Care team informatio n (unrecognized section and content) Personnel Name: Blas Eubanks MD Address: Address: [address] [place] [address] FOR RECORDS PERTAINING TO PATIENTS WHO ARE [...] BE BASED ON THE PRIMARY CLINICAL RECORDS. [facility] [employer] provides no warranty or guarantee of the accuracy or completeness of information in this document.
[2023-12-15 10:33] LABS: Basophils Percent Auto 0.9 % (0.2-2.0); Hematocrit 39.6 % (42.0-54.0); Hemoglobin 12.8 g/dL (14.0-18.0); Lymphocytes Absolute Auto 0.7 10^3/uL (1.2-3.8); Lymphocytes Percent Auto 22.7 % (20.5-60.0); Mean Corpuscular HGB Conc 32.3 g/dL (29.9-35.2); Mean Corpuscular Hemoglobin 28.7 pg (25.9-34.0); Mean Corpuscular Volume 88.8 fL (80.0-94.0); Mean Platelet Volume 9.1 fL (9.5-13.5); Monocytes Absolute Auto 0.5 10^3/uL (0.3-0.8); Neutrophils Percent Auto 61.4 % (43.0-75.0); Platelet Count 123 10^3/uL (150-450); Red Blood Count 4.46 10^6/uL (4.70-6.10); Red Cell Distribution Width 13.9 % (11.0-15.0); White Blood Count 3.3 10^3/uL (4.0-11.0)
== END 2023-12-15 10:16 | disposition home or self-care (01) ==
PROVIDERS: PCP Family Medicine; Visit Provider Internal Medicine Interventional Cardiology
DX: Z01.818 Encounter for other preprocedural examination (principal)
CPT/HCPCS: 36415; 85025

== ENCOUNTER 2023-12-25 10:36 | Outpatient (OUT) | payer OTHER, SELFPAY ==
--- OUTSIDE RECORDS SUMMARY | 2023-12-25 10:41 | XMS_ITS | CCD ---
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[employer] Name Role Phone DR BLAS EUBANKS Admitting Unavailable DR BLAS EUBANKS Attending Unavailable FRANK NAGY Primary Care Unavailable DR BLAS EUBANKS Consulting Unavailable Blas Eubanks Primary Care Physician [phone] Cuco BAEZA Attending Unavailable LINDSEY SWAIN Admitting Unavailable LINDSEY SWAIN Attending Unavailable LINDSEY SWAIN Attending Unavailable NANETTE FLETCHER Attending Unavailable LINDSEY SWAIN Referring Unavailable Medications Current Medications Medication Drug Class(es) [...] Episodic Other lower respiratory disease (2 sources) Shortness of breath; Translations: [Shortness of breath] Onset: 11-07-2023 Episodic Other lower respiratory disease (2 sources) [...] result of other cardiovascular function study] Onset: 11-07-2023 Episodic Other skin disorders (1 source) Disorder [...] Test Name Value Interpretation Reference Range Facility [facility] 12-19-2023 [facility] Cardiology Clinic Note Chief Complaint: Patient here [...] history that includes Stomach surgery (2017) and Uvulopalatopharyngopla sty. Social History He reports that he has never smoked. He has never used smokeless tobacco. He reports current alcohol use. No history on file for drug use. Family History Family History Family History Problem Relation Name [...] failure with preserved ejection fraction; will initiate sp (more content not included)... Normal [facility] NURSNOTEon 12-19-2023 NURSNOTE RN educated pt on d/ c instructions. RN encouraged pt to voice any questions or concerns. Pt verbalizes no questions or concerns at this time. Normal [facility] Office Visiton 11-06-2023 Follow-up visit [id number] Jas Dickson 1960 M Date Provider Department [facility] 11/06/2023 Marianne-LINDSEY SWAIN EGRHARD [facility] Family History Problem Relation Age of Onset Coronary artery disease Father Other Father Family Status - Relation Status Age at Father Level of Service:09182 CO OFFICE/OUTPATIENT ESTABLISHED HIGH MDM 40-54 MIN Normal [facility] Orders Onlyon 11-06-2023 Orders Only [id number] Jas Dickson 1960 M Date Provider Department [facility] 11/06/2023 MARSHA HEART GERHARD [place] Family History Problem Relation Age of Onset Coronary artery disease Father Other Father Family Status - Relation Status Age at Father Normal [facility] Office Visiton 09-29-2023 Follow-up visit [id number] Jas Dickson 1960 M Date Provider Department [facility] 09/29/2023 NANETTE CRAFT GERHARD [place] Family History Problem Relation Age of Onset Coronary artery disease Father Other Father Family Status - Relation Status Age at Father Level of Service:58879 CO OFFICE/OUTPATIENT NEW MODERATE MDM 45-59 MINUTES Normal [facility] Ambulatory Visit Summaryon 0 02-25-2023 Ambulatory Visit [...] 50.0-59.9, adult HTN (hypertension) Morbid obesity Normal [facility] Physician Referralon 023 Physician Referral [id number] 0CD:127 Normal [facility] CBC AUTO DIFFon 02-28-2022 BASO # 0.0 103/ul Normal 0.0-0.1 [facility] Comment on above: Performed By: #### C BC #### [facility] [address] [place] [address] Dr. Bashir Lemons Basophils/100 WBC (Bld) 0.5 % Normal 0.2-2.0 [facility] Comment on above: Performed By: #### C BC #### [facility] [address] [place] [address] Dr. Bahsir Lemons EO # 0.0 103/ul Normal 0.0-0.7 [facility] Comment on above: Performed By: #### C BC #### [facility] [address] [place] [address] Dr. Bashir Lemons Eosinophils/100 WBC (Bld) 0.0 % Critically low 0.9-7.0 [facility] Comment on above: Performed By: #### C BC #### [facility] [address] [place] [address] Dr. Bashir Lemons Erythrocyte distribution width (RBC) [Ratio] 12.3 % Normal 11.0-15.0 [facility] Comment on above: Performed By: #### C BC #### [facility] [address] [place] [address] Dr. Bashir Lemons Hematocrit (Bld) [Volume fraction] 41.9 % Critically low 42.0-54.0 [facility] Comment on above: Performed By: #### C BC #### [facility] [address] [place] [address] Dr. Bashir Lemons Hemoglobin (Bld) [Mass/Vol] 13.8 g/dL Critically low 14.0-18.0 [facility] Comment on above: Performed By: #### C BC #### [facility] [address] [place] [address] Dr. Bashir Lemons IG # 0.02 10e3/ul Normal 0.00-0.03 [facility] Comment on above: Performed By: #### C BC #### [facility] [address] [place] [address] Dr. Bashir Lemons IG % 0.5 % Normal 0.0-0.5 [facility] Comment on above: Performed By: #### C BC #### [facility] [address] [place] [address] Dr. Bashir Lemons LYMPH # 1.3 103/ul Normal 1.2-3.8 [facility] Comment on above: Performed By: #### C BC #### [facility] [address] [place] [address] Dr. Bashir Lemons Lymphocytes/100 WBC (Bld) 34.2 % Normal 20.5-60.0 [facility] Comment on above: Performed By: #### C BC #### [facility] [address] [place] [address] Dr. Bashir Lemons MANUAL DIFF REQ NO Normal [facility] Comment on above: Performed By: #### C BC #### [facility] [address] [place] [address] Dr. Bashir Lemons MCH (RBC) [Entitic mass] 28.9 pg Normal 25.9-34.0 [facility] Comment on above: Performed By: #### C BC #### [facility] [address] [place] [address] Dr. Bashir Lemons MCHC (RBC) [Mass/Vol] 32.9 g/dL Normal 29.9-35.2 [facility] Comment on above: Performed By: #### C BC #### [facility] [address] [place] [address] Dr. Bashir Lemons MCV (RBC) [Entitic vol] 87.8 fL Normal 80.0-94.0 [facility] Comment on above: Performed By: #### C BC #### [facility] [address] [place] [address] Dr. Bashir Lemons MONO # 0.5 103/ul Normal 0.3-0.8 [facility] Comment on above: Performed By: #### C BC #### [facility] [address] [place] [address] Dr. Bashir Lemons Monocytes/100 WBC (Bld) 12.1 % Critically high 1.7-12.0 [facility] Comment on above: Performed By: #### C BC #### [facility] [address] [place] [address] Dr. Bsahir Lemons NEUT # 2.0 103/ul Normal 1.4-6.5 [facility] Comment on above: Performed By: #### C BC #### [facility] [address] [place] [address] Dr. Bashir Lemons Neutrophils/100 WBC (Bld) 52.7 % Normal 43.0-75.0 [facility] Comment on above: Performed By: #### C BC #### [facility] [address] [place] [address] Dr. Bashir Lemons Platelet mean volume (Bld) [Entitic vol] 9.5 fL Normal 9.5-13.5 [facility] Comment on above: Performed By: #### C BC #### [facility] [address] [place], [place] [address] Dr. Bashir Lemons PLT 149 103/ul Critically low 150-450 [facility] Comment on above: Performed By: #### C BC #### [facility] [address] [place], [place] [address] Dr. Bashir Lemons RBC 4.77 106/ul Normal 4.70-6.10 [facility] Comment on above: Performed By: #### C BC #### [facility] [address] [place], [place] [address] Dr. Bashir Lemons WBC 3.8 103/ul Critically low 4.0-11.0 [facility] Comment on above: Performed By: #### C BC #### [facility] [address] [place], [place] [address] Dr. Bashir Lemons Basic Metabolic Panlon 09-08 Anion gap [Moles/Vol] 13 mmol/L Normal 9-18 [facility] Comment on above: Performed By: #### B MP #### [facility] [address] [place] [address] Calcium [Mass/Vol] 9.7 mg/dL Normal 8.5-10.2 [facility] Comment on above: Performed By: #### B MP #### [facility] [address] [place], [place] [address] Chloride [Moles/Vol] 100 mmol/L Normal 97-105 [facility] Comment on above: Performed By: #### B MP #### [facility] [address] [place], [place] [address] CO2 [Moles/Vol] 25 mmol/L Normal 22-30 [facility] Comment on above: Performed By: #### B MP #### [facility] [address] [place], [place] [address] Creatinine [Mass/Vol] 0.72 mg/dL Low 0.73-1.22 [facility] Comment on above: Performed By: #### B MP #### [facility] [address] [place] [id number] eGFR- Amer. >60 Normal [facility] Comment on above: Performed By: #### B MP #### [facility] [address] [place] [address] GFR/1.73 sq M predicted among non-blacks MDRD (S/P/Bld) [Vol rate/Area] mL/min/{1.73_m2} Normal [facility] Comment on above: Result Comment: eGFR [...] GFR. Performed By: #### B MP #### [facility] [address] [place] [address] Glucose [Mass/Vol] 120 mg/dL High 74-99 [facility] Comment on above: Result Comment: The [place] Diabetes Association (ADA) provides guidance for cutoff [...] Standards of Medical Care in Diabetes 2016, [place] Diabetes Association. Diabetes Care. 2016.39(Suppl 1). Performed By: #### B MP #### [facility] [address] [place], [place] [id number] Potassium [Moles/Vol] 4.3 mmol/L Normal 3.7-5.1 [facility] Comment on above: Performed By: #### B MP #### [facility] [address] [place], [place] [address] Sodium [Moles/Vol] 138 mmol/L Normal 136-144 [facility] Comment on above: Performed By: #### B MP #### [facility] [address] [place], [place] [address] Urea nitrogen [Mass/Vol] 22 mg/dL Normal 9-24 [facility] Comment on above: Performed By: #### B MP #### [facility] [address] [place], [place] [address] CNOVon 09-08-2019 CNOV Office Visit (DERMMN ) KIRTI DICKSON ([id number]) 1960 M Date Time Provider Department 09/08/19 [...] bilateral legs and abdomen during visit to [facility]. 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 MD Pamela Gates MD, MD 09/08/2019 11:40 AM Addendum We performed two [...] lab tests to the lab at the [facility] to look at your kidney numbers. Please [...] [I87.2] Order(s):BASIC METABOLIC PNL [SQBMP] Order #: [id number] FUTURE UA CHEMSTRIP ONLY [SQUA] Order #: [id number] FUTURE SURGICAL PATHOLOGY [5018222] Order #: [id number]. #:[id number] Prescriptions as of 09/08/2019 Sig: OMEPRAZOLE ORAL [...] ACETONIDE 0.1 % TOPICAL OINTMENT >> Devyn Andrews RN 09/08/2019 10:21 AM >> DEVYN ANDREWS Sep 08, 2019 10:21 AM PRN PREDNISONE 5 MG TABLET >> Devyn Andrews RN 09/08/2019 10:20 AM >> DEVYN ANDREWS Sep 08, 2019 10:20 AM Restarted prednisone since rash appeared within last few weeks COLCHICINE 0.6 MG CAPSULE >> Devyn Andrews RN 09/08/2019 10:19 AM >> DEVYN ANDREWS Sep 08, 2019 10:19 AM Not taking CAMPHOR-MENTHOL 0.5 %-0.5 % LOTION >> Devyn Andrews RN 09/08/2019 10:21 AM >> DEVYN ANDREWS Sep 08, 2019 10:21 AM Not taking PANTOPRAZOLE 40 MG TABLET,DELAYED RELEASE >> Devyn Andrews RN 09/08/2019 10:19 AM >> DEVYN ANDREWS FriSep 08, 2019 10:19 AM Not taking TRAZODONE 150 MG TABLET >> Devyn Andrews RN 09/08/2019 10:19 AM >> DEVYN ANDREWS FriSep 08, 2019 10:19 AM Not taking Problem [...] lab tests to the lab at the [facility] to look at your kidney numbers. Please continue the compression socks and elevation of your legs. Encounter Status:Closed by GLENDY DAUGHERTY MD on 09/19/19 Normal [facility] PROGRESSon 09-08-2019 PROGRESS HNO ID: [id number] Author: Glendy Daugherty Service: ? Author Type: [...] bilateral legs and abdomen during visit to [facility]. 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 Devyn Andrews, RN Pamela Hope MD Dermatology PGY-1 September 08, 2019 Attestation: I agree with the Chief Complaint, ROS, and Past Histories independently gathered by the clinical work station support specialist, and the remaining scribed note accurately describes [...] above by the Resident. Glendy Daugherty MD [facility] SURGICAL PATHOLOGYon 019 SURGICAL PATHOLOGY Specimen originated from [facility] Specimen #: [id number] Submitting Physician: GLENDY DAUGHERTY MD FINAL DIAGNOSIS A. 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 B. Skin, left upper arm, inferior, punch biops (DIF) - Negative direct immunofluorescence (see comment). EBONY/JOSE/henrietta/09/10/19 COMMENT A. Histologic sections reveal a relatively [...] in-situ hybridization tests have been determined by [facility] [place] [facility] in a manner consistent with CLIA requirements. One or more of these tests have not been cleared or approved by the FDA. [facility] is regulated under CLIA as qualified to [...] in one cassette. Gross examination performed at [place] [id number] 09/08/2019 5:40:43 PM B. Received in Power's is one piece of tissue measuring 0.3 cm in the greatest dimension. Totally frozen for Direct Immunofluorescence. Gross examination performed at [place] [id number] 09/08/2019 5:24:20 PM Date of Report: 09/10/2019 Date of Procedure: 09/08/2019 Date of Receipt: 09/08/2019 Submitted by: GLENDY DAUGHERTY MD Location: A61 Diagnostic interpretation performed at [facility], [address] [place] [address]. CLIA Number: [id number] Normal [facility] Urinalysison 09-08-2019 Bilirubin, Urine Negative Normal Negative [facility] Comment on above: Performed By: #### U A #### [place] [address] Clarity (U) Clear Normal Clear [facility] Comment on above: Performed By: #### U A #### [place] [address] Color (U) Yellow Normal Yellow [facility] Comment on above: Performed By: #### U A #### [place] [address] Comments SEE COMMENT Normal [facility] Comment on above: Result Comment: Micr oscopic Examination Performed Performed By: #### U A #### [place] [address] Glucose Ql (U) Negative Normal Negative [facility] Comment on above: Performed By: #### U A #### [place] [address] Hemoglobin/Blood,U r Negative Normal Negative [facility] Comment on above: Performed By: #### U A #### [place] [address] Ketones Ql (U) Negative Normal Negative [facility] Comment on above: Performed By: #### U A #### [place] [phone] Leukest Negative Normal Negative [facility] Comment on above: Performed By: #### U A #### [facility] [address] [place], [place] [address] Nitrite Ql (U) Negative Normal Negative [facility] Comment on above: Performed By: #### U A #### [place] [address] [place], [place] [address] pH (Bld) 7.0 Normal 4.5-8.0 [facility] Comment on above: Performed By: #### U A #### [place] [address] [place] [address] Protein (U) [Mass/Vol] Negative Normal Negative [facility] Comment on above: Performed By: #### U A #### [place] [address] RBC (U) [#/Vol] 0-3 Normal 0-3 [facility] Comment on above: Performed By: #### U A #### [place] [address] [place], [place] [address] Specific [place], Ur 1.020 Normal 1.005-1.030 [facility] Comment on above: Performed By: #### U A #### [address] [address] Urine Jaspal Comment SEE COMMENT Normal [facility] Comment on above: Result Comment: N/A Performed By: #### U A #### [place] [address] [place], [place] [address] Urobilinogen Qn (U) Normal Normal Normal [facility] Comment on above: Performed By: #### U A #### [address] [address] WBC (Bld) [#/Vol] 0-5 Normal 0-5 [facility] Comment on above: Performed By: #### U A #### [place] [address] [address] [place], [place] [address] Vital Signs Date Time Vital Sign Value Performing Clinician Teressa miller 02-25-2023 14:15-0400 Blood Pressure Location Cuco FELISHA [facility] 02-25-2023 14:15-0400 Diastolic blood pressure 88 mm[Hg] Cuco NILL [facility] 02-25-2023 14:15-0400 Heart rate 78 /min Cuco NILL [facility] 02-25-2023 14:15-0400 Respiratory rate 16 /min Cuco NILL [facility] 02-25-2023 14:15-0400 Systolic blood pressure 130 mm[Hg] Cuco NILL [facility] Encounters Encounter Date Encounter Type Care Provider Facility Start: 12-19-2023 End: 12-19-2023 ambulatory [facility] Start: 11-06-2023 End: 11-06-2023 ambulatory [facility] Start: 09-29-2023 End: 09-29-2023 ambulatory [facility] Start: 02-25-2023 End: 02-26-2023 ambulatory Cuco BAEZA Facility:[facility] Start: 02-25-2023 End: 02-25-2023 Patient encounter procedure Cuco BAEZA [facility] Start: 02-07-2023 ambulatory Cuco BAEZA Facility:[facility] Start: 02-28-2022 End: 03-01-[address] BLAS EUBANKS Facility:[facility] Procedures Date Procedure Procedure Detail Performing Clinician Excision of uvula Cuco ARREDONDO LL Gastric sleeve Cuco BAEZA Immunizations Immunization Date Immunization Notes Care Provider Fa cility 11-14-2021 SARS-CoV-2 (COVID-19 ) mRNA BNT-162b2 vax Cuco BOOKERL [facility] 03-06-2021 SARS-CoV-2 (COVID-19 ) mRNA BNT-162b2 vax Cuco NILL [facility] 02-12-2021 SARS-CoV-2 (COVID-19 ) mRNA BNT-162b2 vax Cuco BOOKERL [facility] [place] NEGATED: Highlighted row has not occurred!02-25-2023 influenza virus vaccine, unspecified formulation Cuco BOOKERL [facility] Payers Date Payer Category Payer Unknown [id number] 2016 Self-pay 1960 Unknown [id number] 1960 Unknown [id number] 1960 Unknown [id number] Social History Date Type Detail Facility Start: 02-25-2023 Tobacco smoking status Never s moked tobacco (finding) [facility] Tobacco smoking status Never Gener [facility] Sex Assigned At Male [facility] Functional Status Date Assessment Result Facility 02-25-2023 Functional Status N/A [facility] [place] Progress note 12-19-2023 Note Date & Type Note Facility 12-19-2023 Note Cardiovascular Labor atory Report FINAL IMPRESSIONS: Nonobstructive coronary arteries angiographically Normal global left ventricular systolic function by noninvasive imaging Moderately elevated right-sided heart pressures and wedge pressure consistent with biventricular congestive heart failure Significant pericardial calcification seen fluoroscopically Supranormal cardiac output and normal cardiac index within normal Qp/Qs RECOMMENDATIONS: Aggressive cardiovascular factor modification Optimal medical therapy for heart failure with preserved ejection fraction; will add Farxiga 10 mg a day, continue spironolactone and beta-saurav Will increase his Lasix to 80 mg p.o. twice daily and order a basic metabolic panel in [address] scan of the chest with and without contrast to evaluate for pericardial plus or minus pleural calcification; further investigations as clinically appropriate Consider referral to pulmonology as appropriate Follow-up with Dr. Swain in the next 1 to 2 months PROCEDURES: Ultrasound-guided access to the right internal jugular vein, right heart catheterization, ultrasound-guided access to the left radial artery, bilateral selective coronary angiography METHODS: After risks, benefits, and alternatives were explained, written informed consent was obtained. The patient was prepped and draped in usual sterile fashion over the right neck and left radial regions. Using 1% lidocaine solution, local infiltration anesthesia was achieved. Using a modified Seldinger technique, a micropuncture kit, and under ultrasound guidance, access to the right internal jugular vein was obtained. A 6 Dominican 11 cm sheath was inserted without difficulty. Right heart catheterization was performed using a Sloan catheter via the venous sheath. Pressures were measured in the right atrium, right ventricle, pulmonary artery, and pulmonary capillary wedge positions. Oxygen saturations were obtained and cardiac output/cardiac index was calculated using the modified Jerome principle. The Sloan catheter was removed. The jugular sheath was removed with application of manual pressure to achieve optimal hemostasis. Local infiltration anesthesia was achieved of the left wrist. Using a micropuncture kit, and under ultrasound-guided access of the left radial artery was obtained. A 6 Dominican glide sheath was inserted without difficulty. Bilateral selective coronary angiography was performed using JL4 and JR4 catheters. After reviewing the images, it was elected to conclude the procedure. All catheters were removed. The radial sheath was removed with application of a TR band per protocol to achieve optimal hemostasis. Overall the patient tolerated the procedure well. There were no overt complications. He was to be transferred to the holding area in stable condition. FINDINGS: Hemodynamics: RA 22 RV 55/18 [23] PA 55/28 [41] PCWP 30 TPG 41 AO 157/87 [98] Cardiac output /cardiac index 10.4/4.45 AO sat /PA sat 92%/71% LEFT VENTRICULOGRAPHY: This was not performed; ejection fraction is 60 to 65% by echocardiography CORONARY ARTERIES: Left main coronary artery: This arises from the left coronary cusp, it bifurcates into the left anterior descending and left circumflex coronary arteries it is free of significant stenoses Left anterior descending coronary artery: This is angiographically nonobstructive Left circumflex coronary artery: This is angiographically nonobstructive Right coronary artery: This is angiographically nonobstructive Fluoroscopy: This shows significant pericardial calcification in the superior and inferolateral portions of the cardiac silhouette INDICATIONS: Exertional shortness of breath, abnormal stress test [facility] Clinical Note 12-19-2023 Note Date & Type Note Facility 12-19-2023 Note Patient: Kirti willis Procedure Information Date/Time: 12/19/23 0830 Procedures: Coronary angiography ( Right IJ and Left Radial approach) (Bilateral) - right internal jugular and left radial approach Right heart cath Location: [facility] [employer] [facility] / [facility] (Cath) Providers: Lindsey Swain MD Clinical information reviewed: Allergies Meds Physical Exam Airway Mallampati: III TM distance: >3 FB Neck ROM: limited Cardiovascular Rhythm: regular Rate: normal Dental Pulmonary Breath sounds clear to auscultation Abdominal (+) obese Anesthesia Plan ( Conscious sedation) Anesthetic plan and risks discussed with patient. Use of blood products discussed with patient who. Additional Equipment Requests Lindsey Swain MD, MPH, [facility], [facility], [facility] Interventional Cardiology Pager Email: [email or web address] [facility] Progress note 11-06-2023 Note Date & Type Note Facility 11-06-2023 Note [facility] Cardiology Clinic Note Chief Complaint: Patient here [...] spironolactone 25 m (more content not included)... [facility] Progress note 09-29-2023 Note Date & Type Note Facility 09-29-2023 Note Cardiovascular Medic ine [facility] SUBJECTIVE No chief complaint on file. [...] about 6 weeks (around 11/10/2023). Nanette Fletcher APRN-ELECTION ASSISTANT [facility] Cardiovascular Medicine [facility] Progress note 09-29-2023 Note Date & Type [...] All other systems reviewed and are negative. [facility] Clinical Note 02-25-2023 Note Date & Type [...] SARS-CoV-2 (COVID-19) mRNA BNT-162b2 vax 02/12/2021 Recorded [facility] Comment on above: Result Comment: Elec tronically Signed By: FELISHA MASTERSON, Cuco Ingram\Date and Time Signed: 02/25/23 15:46 EDT Evaluation + Plan note Note Date & Type Note Facility Evaluation + Plan note No data available for this section General Surgery [facility] Discharge instructions Note Date & Type Note Facility Hospital Discharge instructions No data available for this section General Surgery [facility] Progress note Note Date & Type Note Facility Progress note No data available for this section General Surgery [facility] Summary Purpose Family History No Family History [...] section and content) DATE CREATED AUTHOR 09/19/2019 [facility] DATE CREATED AUTHOR AUTHOR'S ORGANIZ ATION 09/21/2022 [facility] DATE CREATED AUTHOR AUTHOR'S ORGANIZ ATION 02/28/2023 [facility] DATE CREATED AUTHOR AUTHOR'S ORGANIZ ATION 12/24/2023 [facility] Patient Care team informatio n (unrecognized section and content) Personnel Name: Blas Eubanks MD Address: Address: [address] [place] [address] FOR RECORDS PERTAINING TO PATIENTS WHO ARE [...] BE BASED ON THE PRIMARY CLINICAL RECORDS. [facility] [employer] [facility]. provides no warranty or guarantee of the accuracy or completeness of information in this document.
[2023-12-25 11:54] LABS: Anion Gap 13.5; BUN Creatinine Ratio 18.5; Calcium 9.6 mg/dL (8.5-10.1); Carbon Dioxide 31.5 mmol/L (21.0-32.0); Chloride 96 mmol/L (98-107); Estimated GFR (African America >60 (>=60); Estimated GFR (Non-African Ame >60 (>=60); Glucose 106 mg/dL (74-106); Sodium 137 mmol/L (136-145)
== END 2023-12-25 10:37 | disposition home or self-care (01) ==
LOC: LAB 10:37
PROVIDERS: PCP Family Medicine; Visit Provider Internal Medicine Interventional Cardiology
DX: R06.02 Shortness of breath (principal)
CPT/HCPCS: 36415; 80048

== ENCOUNTER 2024-01-17 09:40 | Outpatient (OUT) | payer OTHER, SELFPAY ==
--- NOTE | 2024-01-17 | CT_ITS ---
[address] [address] Patient Name: KIRTI DICKSON MRN: [id number] date: 1960 Sex: M Assigned Patient Location: CT Current Patient Location: Accession/Order Number: [id number] Exam Date: 01/17/2024 10:00 Report Date: 01/18/2024 04:51 At the request of: THUAN YADAV Procedure: CT chest wo/w con EXAMINATION: CT chest wo/w con HISTORY: PERICARDIAL CALCIFICATION ; chronic shortness of breath; prominent right hilar region on recent chest x-ray COMPARISON: XR chest 12/15/2023 TECHNIQUE: Multi-planar CT images were obtained without and/or with IV contrast as indicated by examination type. Axial, Coronal, and Sagittal images. Dose reduction techniques were achieved by using automated exposure control and/or adjustment of mA and/or kV according to patient size and/or use of iterative reconstruction technique. FINDINGS: LUNGS: 1 cm calcified granuloma within anterior lateral base of right upper lobe. No acute infiltrates, suspicious nodules, or significant chronic interstitial changes. PLEURA: No mass, effusion, or pneumothorax. VASCULATURE: Slightly prominent right and left lower lobe pulmonary arteries; 2.5 cm on right, 2.2 cm in diameter on left. DAPHNE: A few small calcified lymph nodes suggestive of chronic granulomatous disease. MEDIASTINUM: A few small calcified lymph nodes. CARDIAC: Numerous areas of calcium deposition within the pericardium with minimal pericardial thickening. No cardiac enlargement or pericardial effusion. AORTA: Mild dilation of ascending aorta, 4.1 cm in diameter. CHEST WALL: No mass or axillary adenopathy. BONES: No bone lesion or fracture. LIMITED ABDOMEN: Prior gastric surgery. No suspicious findings Limited images of the upper abdomen. OTHER: Negative. CT/CT chest wo/w con IMPRESSION: 1. Slightly prominent pulmonary arteries bilaterally suggestive of pulmonary hypertension. 2. Prominent calcium deposition and minimal thickening of the pericardium. No pericardial effusion. 3. Mild aneurysmal dilation of ascending aorta, 4.1 cm. Electronically authenticated by: GEE MAR Date: 01/18/2024 04:51
--- OUTSIDE RECORDS SUMMARY | 2024-01-17 09:43 | XMS_ITS | CCD ---
Author Name Unknown Address [address] [place] [address] Organization [facility] Care Team Providers Care Preventive Maintenance Engineer Name Role Phone DR BLAS EUBANKS Admitting Unavailable DR BLAS EUBANKS Attending Unavailable FRANK NAGY Primary Care Unavailable DR BLAS EUBANKS Consulting Unavailable Blas Eubanks Primary Care Physician Cuco BAEZA Attending Unavailable LINDSEY SWAIN Admitting [...] Test Name Value Interpretation Reference Range Facility [facility] 12-19-2023 [facility] Cardiology Clinic Note Chief Complaint: [...] initiate sp (more content not included)... Normal [facility] NURSNOTEon 12-19-2023 NURSNOTE RN educated pt on d/ c instructions. RN encouraged pt to voice any questions or concerns. Pt verbalizes no questions or concerns at this time. Normal [facility] Office Visiton 11-06-2023 Follow-up visit [id number] Jas Dickson 1960 M Date Provider Department [place] 11/06/2023 Marianne-LINDSEY SWAIN GERHARD [place] Family History Problem Relation Age of Onset Coronary artery disease Father Other Father Family Status - Relation Status Age at Father Level of Service:61413 NC OFFICE/OUTPATIENT ESTABLISHED HIGH MDM 40-54 MIN Normal [facility] Orders Onlyon 11-06-2023 Orders Only [id number] Jas Dickson 1960 M Date Provider Department [place] 11/06/2023 MARSHA HEART GERHARD [place] Family History Problem Relation Age of Onset Coronary artery disease Father Other Father Family Status - Relation Status Age at Father Normal [facility] Office Visiton 09-29-2023 Follow-up visit [id number] Jas Dickson 1960 M Date Provider Department [place] 09/29/2023 NANETTE CRAFT GERHARD [place] Family History Problem Relation Age of Onset Coronary artery disease Father Other Father Family Status - Relation Status Age at Father Level of Service:29106 NC OFFICE/OUTPATIENT NEW MODERATE MDM 45-59 MINUTES Normal [facility] Ambulatory Visit Summaryon 0 02-25-2023 Ambulatory Visit [...] 50.0-59.9, adult HTN (hypertension) Morbid obesity Normal [facility] Physician Referralon 023 Physician Referral [id number]:[id number] Normal [facility] CBC AUTO DIFFon 02-28-2022 BASO # 0.0 103/ul Normal 0.0-0.1 [facility] Comment on above: Performed By: #### C BC #### [facility] [address] [place] [address] Dr. Bashir Lemons Basophils/100 WBC (Bld) 0.5 % Normal 0.2-2.0 [facility] Comment on above: Performed By: #### C BC #### [facility] [address] [place] [address] Dr. Bashir Lemons EO # 0.0 103/ul Normal 0.0-0.7 [facility] Comment on above: Performed By: #### C BC #### [facility] [address] [place] [address] Dr. Bashir Lemons Eosinophils/100 WBC (Bld) 0.0 % Critically low 0.9-7.0 [facility] Comment on above: Performed By: #### C BC #### [facility] [address] [place] [address] Dr. Bashir Lemons Erythrocyte distribution width (RBC) [Ratio] 12.3 % Normal 11.0-15.0 [facility] Comment on above: Performed By: #### C BC #### [facility] [address] [place] [address] Dr. Bashir Lemons Hematocrit (Bld) [Volume fraction] 41.9 % Critically low 42.0-54.0 [facility] Comment on above: Performed By: #### C BC #### [facility] [address] [place] [address] Dr. Bashir Lemons Hemoglobin (Bld) [Mass/Vol] 13.8 g/dL Critically low 14.0-18.0 [facility] Comment on above: Performed By: #### C BC #### [facility] [address] [place] [address] Dr. Bashir Lemons IG # 0.02 10e3/ul Normal 0.00-0.03 [facility] Comment on above: Performed By: #### C BC #### [facility] [address] [place] [address] Dr. Bashir Lemons IG % 0.5 % Normal 0.0-0.5 [facility] Comment on above: Performed By: #### C BC #### [facility] [address] [place] [address] Dr. Bashir Lemons LYMPH # 1.3 103/ul Normal 1.2-3.8 [facility] Comment on above: Performed By: #### C BC #### [facility] [address] [place] [address] Dr. Bashir Lemons Lymphocytes/100 WBC (Bld) 34.2 % Normal 20.5-60.0 [facility] Comment on above: Performed By: #### C BC #### [facility] [address] [place] [address] Dr. Bashir Lemons MANUAL DIFF REQ NO Normal [facility] Comment on above: Performed By: #### C BC #### [facility] [address] [place] [address] Dr. Bashir Lemons MCH (RBC) [Entitic mass] 28.9 pg Normal 25.9-34.0 [facility] Comment on above: Performed By: #### C BC #### [facility] [address] [place] [address] Dr. Bashir Lemons MCHC (RBC) [Mass/Vol] 32.9 g/dL Normal 29.9-35.2 [facility] Comment on above: Performed By: #### C BC #### [facility] [address] [place] [address] Dr. Bashir Lemons MCV (RBC) [Entitic vol] 87.8 fL Normal 80.0-94.0 [facility] Comment on above: Performed By: #### C BC #### [facility] [address] [place] [address] Dr. Bashir Lemons MONO # 0.5 103/ul Normal 0.3-0.8 [facility] Comment on above: Performed By: #### C BC #### [facility] [address] [place] [address] Dr. Bashir Lemons Monocytes/100 WBC (Bld) 12.1 % Critically high 1.7-12.0 [facility] Comment on above: Performed By: #### C BC #### [facility] [address] [place] [address] Dr. Bashir Lemons NEUT # 2.0 103/ul Normal 1.4-6.5 [facility] Comment on above: Performed By: #### C BC #### [facility] [address] [place] [address] Dr. Bashir Lemons Neutrophils/100 WBC (Bld) 52.7 % Normal 43.0-75.0 [facility] Comment on above: Performed By: #### C BC #### [facility] [address] [place] [address] Dr. Bashir Lemons Platelet mean volume (Bld) [Entitic vol] 9.5 fL Normal 9.5-13.5 [facility] Comment on above: Performed By: #### C BC #### [facility] [address] [place], [place] [address] Dr. Bashir Lemons PLT 149 103/ul Critically low 150-[address] [facility] Comment on above: Performed By: #### C BC #### [facility] [address] [place], [place] [address] Dr. Bashir Lemons RBC 4.77 106/ul Normal 4.70-6.10 [facility] Comment on above: Performed By: #### C BC #### [facility] [address] [place], [place] [address] Dr. Bashir Lemons WBC 3.8 103/ul Critically low 4.0-11.[address] [facility] Comment on above: Performed By: #### C BC #### [facility] [address] [place], [place] [address] Dr. Bashir Lemons Basic Metabolic Panlon 09-08 Anion gap [Moles/Vol] 13 mmol/L Normal 9-18 [facility] Comment on above: Performed By: #### B MP #### [facility] [address] [place] [address] Calcium [Mass/Vol] 9.7 mg/dL Normal 8.5-10.2 [facility] Comment on above: Performed By: #### B MP #### [facility] [address] [place], [place] [address] Chloride [Moles/Vol] 100 mmol/L Normal 97-105 [facility] Comment on above: Performed By: #### B MP #### [facility] [address] [place], [place] [address] CO2 [Moles/Vol] 25 mmol/L Normal 22-30 [facility] Comment on above: Performed By: #### B MP #### [facility] [address] [place], [place] [address] Creatinine [Mass/Vol] 0.72 mg/dL Low 0.73-1.22 [facility] Comment on above: Performed By: #### B MP #### [facility] [address] [place] [id number] eGFR- Amer. >60 Normal [facility] Comment on above: Performed By: #### B MP #### [facility] [address] [place] [address] GFR/1.73 sq M predicted among non-blacks MDRD (S/P/Bld) [Vol rate/Area] mL/min/{1.73_m2} Normal [facility] Comment on above: Result Comment: eGFR (Estimated [...] Performed By: #### B MP #### [facility] [address] [place] [address] Glucose [Mass/Vol] 120 mg/dL High 74-99 [facility] Comment on above: Result Comment: The [place] Diabetes Association (ADA) provides guidance for cutoff [...] Standards of Medical Care in Diabetes 2016, [place] Diabetes Association. Diabetes Care. 2016.39(Suppl 1). Performed By: #### B MP #### [facility] [address] [place], [place] [id number] Potassium [Moles/Vol] 4.3 mmol/L Normal 3.7-5.1 [facility] Comment on above: Performed By: #### B MP #### [facility] [address] [place], [place] [address] Sodium [Moles/Vol] 138 mmol/L Normal 136-144 [facility] Comment on above: Performed By: #### B MP #### [facility] [address] [place], [place] [address] Urea nitrogen [Mass/Vol] 22 mg/dL Normal 9-24 [facility] Comment on above: Performed By: #### B MP #### [facility] [address] [place], [place] [address] CNOVon 09-08-2019 CNOV Office Visit (DERMMN ) KIRTI DICKSON ([id number]) 1960 M Date Time Provider Department 09/08/19 [...] bilateral legs and abdomen during visit to [place]. 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 to look at your kidney [...] [I87.2] Order(s):BASIC METABOLIC PNL [SQBMP] Order #: [id number] FUTURE UA CHEMSTRIP ONLY [SQUA] Order #: [id number] FUTURE SURGICAL PATHOLOGY [8598045] Order #: [id number]. #:[id number] Prescriptions as of 09/08/2019 Sig: OMEPRAZOLE ORAL [...] tests to the lab at the [facility] to look at your kidney numbers. Please continue the compression socks and elevation of your legs. Encounter Status:Closed by GLENDY DAUGHERTY MD on 09/19/19 Normal [facility] PROGRESSon 09-08-2019 PROGRESS HNO ID: [id number] Author: Glendy Daugherty Service: ? Author Type: [...] bilateral legs and abdomen during visit to [place]. 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 Glendy Daugherty MD [facility] SURGICAL PATHOLOGYon 019 SURGICAL PATHOLOGY Specimen originated from [facility] Specimen #: [id number] Submitting Physician: GLENDY DAUGHERTY MD FINAL DIAGNOSIS [...] hybridization tests have been determined by [facility]'s [facility] [place] [facility] in a manner consistent with CLIA requirements. One or more of these tests have not been cleared or approved by the FDA. [facility] is regulated under CLIA as qualified to [...] in one cassette. Gross examination performed at [place] [id number] 09/08/2019 5:40:43 PM B. Received in Power's is one piece of tissue measuring 0.3 cm in the greatest dimension. Totally frozen for Direct Immunofluorescence. Gross examination performed at [place] [id number] 09/08/2019 5:24:20 PM Date of Report: 09/10/2019 Date of Procedure: 09/08/2019 Date of Receipt: 09/08/2019 Submitted by: GLENDY DAUGHERTY MD Location: A61 Diagnostic interpretation performed at [facility], [address] [place] [address]. CLIA Number: [id number] Normal [facility] Urinalysison 09-08-2019 Bilirubin, Urine Negative Normal Negative [facility] Comment on above: Performed By: #### U A #### [place] [address] Clarity (U) Clear Normal Clear [facility] Comment on above: Performed By: #### U A #### [place] [address] Color (U) Yellow Normal Yellow [facility] Comment on above: Performed By: #### U A #### [place] [address] Comments SEE COMMENT Normal [facility] Comment on above: Result Comment: Micr oscopic Examination Performed Performed By: #### U A #### [place] [address] Glucose Ql (U) Negative Normal Negative [facility] Comment on above: Performed By: #### U A #### [place] [address] Hemoglobin/Blood,U r Negative Normal Negative [facility] Comment on above: Performed By: #### U A #### [place] [address] Ketones Ql (U) Negative Normal Negative [facility] Comment on above: Performed By: #### U A #### [place] [phone] Leukest Negative Normal Negative [facility] Comment on above: Performed By: #### U A #### [facility] [address] [place], [place] [address] Nitrite Ql (U) Negative Normal Negative [facility] Comment on above: Performed By: #### U A #### [place] [address] [place], [place] [address] pH (Bld) 7.0 Normal 4.5-8.0 [facility] Comment on above: Performed By: #### U A #### [place] [address] [place] [address] Protein (U) [Mass/Vol] Negative Normal Negative [facility] Comment on above: Performed By: #### U A #### [place] [address] RBC (U) [#/Vol] 0-3 Normal 0-3 [facility] Comment on above: Performed By: #### U A #### [place] [address] [place], [place] [address] Specific [place], Ur 1.020 Normal 1.005-1.030 [facility] Comment on above: Performed By: #### U A #### [address] [address] Urine Jaspal Comment SEE COMMENT Normal [facility] Comment on above: Result Comment: N/A Performed By: #### U A #### [place] [address] [place], [place] [address] Urobilinogen Qn (U) Normal Normal Normal [facility] Comment on above: Performed By: #### U A #### [address] [address] WBC (Bld) [#/Vol] 0-5 Normal 0-5 [facility] Comment on above: Performed By: #### U A #### [place] [address] [address] [place], [place] [address] Vital Signs Date Time Vital Sign Value Performing Clinician Teressa miller 02-25-2023 14:15-0400 Blood Pressure Location Cuco FELISHA [facility] [place] 02-25-2023 14:15-0400 Diastolic blood pressure 88 mm[Hg] Cuco NILL [facility] [place] 02-25-2023 14:15-0400 Heart rate 78 /min Cuco NILL [facility] 02-25-2023 14:15-0400 Respiratory rate 16 /min Cuco NILL [facility] 02-25-2023 14:15-0400 Systolic blood pressure 130 mm[Hg] Cuco NILL [facility] [place] Encounters Encounter Date Encounter Type Care Provider Facility Start: 12-19-2023 End: 12-19-2023 ambulatory [facility] Start: 11-06-2023 End: 11-06-2023 ambulatory [facility] Start: 09-29-2023 End: 09-29-2023 ambulatory [facility] Start: 02-25-2023 End: 02-26-2023 ambulatory Cuco BAEZA Facility:[facility] Start: 02-25-2023 End: 02-25-2023 Patient encounter [...] mRNA BNT-162b2 vax Cuco BOOKERL [facility] [place] 03-06-2021 SARS-CoV-2 (COVID-19 ) mRNA BNT-162b2 vax Cuco NILL [facility] [place] 02-12-2021 SARS-CoV-2 (COVID-19 ) mRNA BNT-162b2 vax Cuco BOOKERL [facility] NEGATED: Highlighted row has not occurred!02-25-2023 influenza virus vaccine, unspecified formulation Cuco BOOKERL [facility] [place] Payers Date Payer Category Payer Unknown [id number] 2016 Self-pay 1960 Unknown [id number] 1960 Unknown [id number] 1960 Unknown [id number] Social History Date Type Detail Facility Start: 02-25-2023 Tobacco smoking status Never s moked tobacco (finding) [facility] Tobacco smoking status Never Gener [facility] Sex Assigned At Male [facility] Functional Status Date Assessment Result Facility 02-25-2023 Functional Status N/A [facility] [place] Progress note 12-19-2023 Note Date & Type [...] internal jugular vein was obtained. A 6 [place] 11 cm sheath was inserted without difficulty. [...] left radial artery was obtained. A 6 [place] glide sheath was inserted without difficulty. Bilateral [...] Exertional shortness of breath, abnormal stress test [facility] Clinical Note 12-19-2023 Note Date & Type Note Facility 12-19-2023 Note Patient: Kirti willis Procedure Information Date/Time: 12/19/23 0830 Procedures: Coronary angiography ( Right IJ and Left Radial approach) (Bilateral) - right internal jugular and left radial approach Right heart cath Location: [facility] REFERRAL NURSE 3 / [facility] (Cath) Providers: Lindsey Swain MD [...] Additional Equipment Requests Lindsey Swain MD, MPH, MERGED WITH [facility], [facility], [facility] Interventional Cardiology Pager Email: [email or web address] Progress note 11-06-2023 Note Date & Type Note Facility 11-06-2023 Note [facility] Cardiology Clinic Note Chief Complaint: Patient [...] spironolactone 25 m (more content not included)... [facility] Progress note 09-29-2023 Note Date & Type Note Facility 09-29-2023 Note Cardiovascular Medic [facility] SUBJECTIVE No chief complaint on file. [...] about 6 weeks (around 11/10/2023). Nanette Fletcher APRN-CHIEF LOCK TENDER OPERATOR [facility] Cardiovascular Medicine [facility] Progress note 09-29-2023 Note Date & Type [...] All other systems reviewed and are negative. [facility] Clinical Note 02-25-2023 Note Date & Type [...] SARS-CoV-2 (COVID-19) mRNA BNT-162b2 vax 02/12/2021 Recorded [facility] Comment on above: Result Comment: Elec tronically Signed By: FELISHA MASTERSON, Cuco Ingram\Date and Time Signed: 02/25/23 15:46 EDT Evaluation + Plan note Note Date & Type Note Facility Evaluation + Plan note No data available for this section [facility] Discharge instructions Note Date & Type [...] section and content) DATE CREATED AUTHOR 09/19/2019 [facility] DATE CREATED AUTHOR AUTHOR'S ORGANIZ ATION 09/21/2022 [facility] DATE CREATED AUTHOR AUTHOR'S ORGANIZ ATION 02/28/2023 [facility] DATE CREATED AUTHOR AUTHOR'S ORGANIZ ATION 12/24/2023 [facility] Patient Care team informatio n (unrecognized section and content) Personnel Name: Blas Eubanks MD Address: Address: [address] [place] [address] FOR RECORDS PERTAINING TO PATIENTS WHO ARE [...] BE BASED ON THE PRIMARY CLINICAL RECORDS. [facility]. provides no warranty or guarantee of the accuracy or completeness of information in this document.
== END 2024-01-17 09:41 | disposition home or self-care (01) ==
LOC: CT 09:40
PROVIDERS: PCP Family Medicine; Visit Provider Internal Medicine Interventional Cardiology
DX: I31.8 Other specified diseases of pericardium (principal)
CPT/HCPCS: 71270; Q9967

== ENCOUNTER 2024-01-21 16:27 | Emergency (ER) | payer OTHER, SELFPAY ==
[2024-01-21] VITALS (15 sets, daily range): BP systolic 92–119; BP diastolic 47–85; PULSE 83–96; RESP 9–20; TEMP 36.6; O2SAT 91–96; BMI 48.8
--- NOTE | 2024-01-21 16:40 | ED_ITS ---
HPI - Skin/Abscess/Foreign Bdy General Chief complaint: Allergic Reaction Stated complaint: Allerigic Reaction Time Seen by Provider: 01/21/24 16:36 History of Present Illness HPI narrative: 63-year-old male presents for redness to his skin and itching. It started 45 minutes after receiving a shot of a steroid. No difficulty breathing or swallowing. It has been continuous and he took some oral Benadryl at home. He does not feel that his tongue is swollen now. He also received a B12 shot. Related Data Home Medications Medication Instructions Recorded Confirmed furosemide 40 mg tablet 40 mg PO DAILY 09/19/23 09/19/23 trazodone 50 mg tablet 50 mg PO DAILY 09/19/23 09/19/23 verapamil 180 mg 24 hr 180 mg PO DAILY 09/19/23 09/19/23 capsule,extended release dapagliflozin propanediol 10 mg 10 mg PO DAILY 01/21/24 01/21/24 tablet (Farxiga) Allergies Allergy/AdvReac Type Severity Reaction Status Date / Time No Known Drug Allergies Allergy Verified 09/19/23 22:41 Review of Systems ROS Narrative A ten point review of systems is negative except as noted above. Exam Narrative Exam Narrative: Nurses note and vital signs reviewed and patient is not hypoxic. General: The patient appears well and in no apparent distress. Patient is resting comfortably on cart. Skin: Warm, dry, no pallor noted. There is erythema over essentially all of h is skin. Head: Normocephalic, atraumatic Eye: Normal conjunctiva, no drainage Ears, Nose, Mouth, and Throat: oral mucosa is moist. Nares patent. Tongue not swollen. He is handling his oral secretions well. Cardiovascular: Regular Rate and Rhythm Respiratory: Patient is in no distress, no accessory muscle use, lungs are clear to auscultation, no wheezing, rales or rhonchi Back: non-tender GI: Obese and nontender Musculoskeletal: The patient has no evidence of calf tenderness, no pitting edema, symmetrical pulses noted bilaterally Neurological: A&O x4, normal speech Psychiatric: Cooperative Constitutional Vital Signs, click to edit/add: Last Vital Signs Temp 98 F 01/21/24 16:41 Pulse 85 01/21/24 16:59 Resp 18 01/21/24 16:59 BP 117/85 01/21/24 16:59 Pulse Ox 94 L 01/21/24 16:59 O2 Del Method Room Air 01/21/24 16:59 Course Vital Signs Vital signs: Vital Signs Temperature 98 F 01/21/24 16:41 Pulse Rate 94 H 01/21/24 16:41 Respiratory Rate 20 01/21/24 16:41 Blood Pressure 107/60 01/21/24 16:41 Pulse Oximetry 95 01/21/24 16:41 Oxygen Delivery Method Room Air 01/21/24 16:41 Temperature 98 F 01/21/24 16:41 Pulse Rate 85 01/21/24 16:59 Respiratory Rate 18 01/21/24 16:59 Blood Pressure 117/85 01/21/24 16:59 Pulse Oximetry 94 L 01/21/24 16:59 Oxygen Delivery Method Room Air 01/21/24 16:59 MDM - Skin/Abscess/Foreign Bdy MDM Narrative Medical decision making narrative: The patient has been given IV Benadryl and Pepcid and feels greatly improved. The erythema is diminished greatly and he is able to be discharged home. We have avoided steroids in this patient because it is possible that he had an allergic reaction to the steroid that he was given earlier today. Treatment diagnosis and follow-up were discussed with the patient and his . Differential Diagnosis Differential diagnosis: Likely urticaria and allergic reaction to drug Discharge Plan Discharge Chief Complaint: Allergic Reaction Clinical Impression: Allergic reaction Patient Disposition: Home, Self-Care Time of Disposition Decision: 17:53 Condition: Good Mode of Transportation: Private Vehicle Prescriptions / Home Meds: No Action furosemide 40 mg tablet 40 mg PO DAILY trazodone 50 mg tablet 50 mg PO DAILY verapamil 180 mg capsule,ext rel. pellets 24 hr 180 mg PO DAILY dapagliflozin propanediol [Farxiga] 10 mg tablet 10 mg PO DAILY Instructions: General Allergic Reaction (ED) Stand Alone Forms: Portal Instructions Referrals: Emory Eubanks MD [Primary Care Provider] - 1 week
--- NOTE | 2024-01-21 16:40 | ECG_ITS ---
[facility] Test Date: 2024-01-21 Pat Name: KIRTI DICKSON Department: Room: - Gender: Male [employer]: : 1960 Requested By: [id number] Order Number: [id number] Reading MD: LOU CUELLAR Measurements Intervals [place] Rate: 93 P: 45 NE: 218 QRS: 22 QRSD: 86 T: 72 QT: 378 QTc: 429 Interpretive Statements 1100 Sinus rhythm 1570 with occasional ventricular premature complexes 2231 First degree AV block 2420 RSR (QR) in lead V1/V2, consistent with right ventricular conduction delay 8102 Low QRS voltage in chest leads 9150 abnormal ECG No previous ECG available for comparison Electronically Signed On 01-27-2024 22:50:44 EST by LOU CUELLAR
--- OUTSIDE RECORDS SUMMARY | 2024-01-21 16:50 | XMS_ITS | CCD ---
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 Name Role Phone DR BLAS EUBANKS Admitting Unavailable DR BLAS EUBANKS Attending Unavailable FRANK NAGY Primary Care Unavailable DR BLAS EUBANKS Consulting Unavailable Blas Eubanks Primary Care Physician Cuco BAEZA Attending Unavailable NANETTE FLETCHER Attending Unavailable SANDROTALINDSEY HERMAN Attending Unavailable LINDSEY SWAIN Attending Unavailable CARLA SWAINAB Admitting Unavailable ELTABATSHEVA EHAB Referring Unavailable LINDSEY SWAIN Attending Unavailable Medications Current Medications Medication Drug [...] 0 Start Date: 02/14/23 Status: Ordered Problems Active Problems Problem Classification Problem Date Documented Da [...] (1 source) Hypertensive disorder 02-14-2023 Chronic Other lower respiratory disease (2 sources) Shortness of breath; Translations: [Shortness of breath] Onset: 11-07-2023 Episodic Other nutritional; endocrine; and metabolic disorders [...] (1 source) Lesion of scalp 02-25-2023 Episodic Ange-; endo-; and myocarditis; cardiomyopathy (except that caused by tuberculosis or sexually transmitted disease) (2 sources) Other specified diseases of pericardium; Translations: [Other specified diseases of pericardium] Onset: 01-19-2024 Episodic Residual codes; unclassified (2 sources) Family history of ischemic heart disease and other diseases of the circulatory system; Translations: [Family history of ischemic heart disease and other diseases of the circulatory system] Onset: 11-06-2023 Episodic Past or Other Problems Problem Classification Problem Date Documented Date Episodic/Chronic Other diseases of veins and lymphatics (2 sources) Venous insufficiency (chronic) (peripheral); Translations: [Venous insufficiency (chronic) (peripheral)] Onset: 09-29-2023 Episodic Other lower respiratory disease (2 sources) Other forms of dyspnea; Translations: [Other forms of dyspnea] Onset: 09-29-2023 Episodic Results Test Name Value Interpretation Reference Range Facility Office Visiton 01-19-2024 Follow-up visit [id number] Jas Dickson Conrado 1960 M Date Provider Department Center 01/19/2024 [id number], LINDSEY ROPER [facility] Family History Problem Relation Age of Onset Coronary artery disease Father Other Father Family Status - Relation Status Age at Father Level of Service:91068 ND OFFICE/OUTPATIENT ESTABLISHED LOW MDM 20 MIN Normal [facility] HPon 12-19-2023 [facility] Cardiology Clinic Note Chief Complaint: Patient here [...] initiate sp (more content not included)... Normal [facility] NURSNOTEon 12-19-2023 NURSNOTE RN educated pt on d/ c instructions. RN encouraged pt to voice any questions or concerns. Pt verbalizes no questions or concerns at this time. Normal [facility] Office Visiton 11-06-2023 Follow-up visit [id number] Jas Dickson R 1960 M Date Provider Department Center 11/06/2023 Marianne-LINDSEY SWAIN GERHARD [place] Family History Problem Relation Age of Onset Coronary artery disease Father Other Father Family Status - Relation Status Age at Father Level of Service:92982 ND OFFICE/OUTPATIENT ESTABLISHED HIGH MDM 40-54 MIN [facility] Orders Onlyon 11-06-2023 Orders Only [id number] Jas Dickson R 1960 M Date Provider Department Center 11/06/2023 Rosalinda-MARSHA RYDER [facility] [place] Family History Problem Relation Age of Onset Coronary artery disease Father Other Father Family Status - Relation Status Age at Father Normal [facility] Office Visiton 09-29-2023 Follow-up visit [id number] Jas Dickson tiffanie Camp 1960 M Date Provider Department Center 09/29/2023 NANETTE CRAFT Family History Problem Relation Age of Onset Coronary artery disease Father Other Father Family Status - Relation Status Age at Father Level of Service:93924 ND OFFICE/OUTPATIENT NEW MODERATE MDM 45-59 MINUTES Normal [facility] Ambulatory Visit Summaryon 0 02-25-2023 Ambulatory Visit Summary KIRTI DICKSON R :1960 Visit Date:02/25/2023 Ambulatory Visit Instructions Your [...] 50.0-59.9, adult HTN (hypertension) Morbid obesity Normal [facility] Physician Referralon 023 Physician Referral [phone] [id number] Normal [facility] CBC AUTO DIFFon 02-28-2022 BASO # 0.0 103/ul Normal 0.0-0.1 [facility] Comment on above: Performed By: #### C BC #### [facility] [address] [place] [address] Dr. Bashir Lemons Basophils/100 WBC (Bld) 0.5 % Normal 0.2-2.0 [facility] Comment on above: Performed By: #### C BC #### [facility] [address] [place] [address] Dr. Bashir Lemons EO # 0.0 103/ul Normal 0.0-0.7 [facility] Comment on above: Performed By: #### C BC #### [facility] [address] [place] [address] Dr. Bashir Lemons Eosinophils/100 WBC (Bld) 0.0 % Critically low 0.9-7.0 [facility] Comment on above: Performed By: #### C BC #### [facility] [address] [place] [address] Dr. Bashir Lemons Erythrocyte distribution width (RBC) [Ratio] 12.3 % Normal 11.0-15.0 [facility] Comment on above: Performed By: #### C BC #### [facility] [address] [place] [address] Dr. Bashir Lemons Hematocrit (Bld) [Volume fraction] 41.9 % Critically low 42.0-54.0 [facility] Comment on above: Performed By: #### C BC #### [facility] [address] [place] [address] Dr. Bashir Lemons Hemoglobin (Bld) [Mass/Vol] 13.8 g/dL Critically low 14.0-18.0 [facility] Comment on above: Performed By: #### C BC #### [facility] [address] [place] [address] Dr. Bashir Lemons IG # 0.02 10e3/ul Normal 0.00-0.03 [facility] Comment on above: Performed By: #### C BC #### [facility] [address] [place] [address] Dr. Bashir Lemons IG % 0.5 % Normal 0.0-0.5 [facility] Comment on above: Performed By: #### C BC #### [facility] [address] [place] [address] Dr. Bashir Lemons LYMPH # 1.3 103/ul Normal 1.2-3.8 [facility] Comment on above: Performed By: #### C BC #### [facility] [address] [place] [address] Dr. Bashir Lemons Lymphocytes/100 WBC (Bld) 34.2 % Normal 20.5-60.0 [facility] Comment on above: Performed By: #### C BC #### [facility] [address] [place] [address] Dr. Bashir Lemons MANUAL DIFF REQ NO Normal [facility] Comment on above: Performed By: #### C BC #### [facility] [address] [place] [address] Dr. Bashir Lemons MCH (RBC) [Entitic mass] 28.9 pg Normal 25.9-34.0 [facility] Comment on above: Performed By: #### C BC #### [facility] [address] [place] [address] Dr. Bashir Lemons MCHC (RBC) [Mass/Vol] 32.9 g/dL Normal 29.9-35.2 [facility] Comment on above: Performed By: #### C BC #### [facility] [address] [place] [address] Dr. Bashir Lemons MCV (RBC) [Entitic vol] 87.8 fL Normal 80.0-94.0 [facility] Comment on above: Performed By: #### C BC #### [facility] [address] [place] [address] Dr. Bashir Lemons MONO # 0.5 103/ul Normal 0.3-0.8 [facility] Comment on above: Performed By: #### C BC #### [facility] [address] [place] [address] Dr. Bashir Lemons Monocytes/100 WBC (Bld) 12.1 % Critically high 1.7-12.0 [facility] Comment on above: Performed By: #### C BC #### [facility] [address] [place] [address] Dr. Bashir Lemons NEUT # 2.0 103/ul Normal 1.4-6.5 [facility] Comment on above: Performed By: #### C BC #### [facility] [address] [place] [address] Dr. Bashir Lemons Neutrophils/100 WBC (Bld) 52.7 % Normal 43.0-75.0 [facility] Comment on above: Performed By: #### C BC #### [facility] [address] [place] [address] Dr. Bashir Lemons Platelet mean volume (Bld) [Entitic vol] 9.5 fL Normal 9.5-13.5 [facility] Comment on above: Performed By: #### C BC #### [facility] [address] [place] [address] Dr. Bashir Lemons PLT 149 103/ul Critically low 150-450 [facility] Comment on above: Performed By: #### C BC #### [facility] [address] [place] [address] Dr. Bashir Lemons RBC 4.77 106/ul Normal 4.70-6.10 [facility] Comment on above: Performed By: #### C BC #### [facility] [address] [place] [address] Dr. Bashir Lemons WBC 3.8 103/ul Critically low 4.0-11.0 [facility] Comment on above: Performed By: #### C BC #### [facility] [address] [place] [address] Dr. Bashir Lemons Basic Metabolic Panlon 09-08 Anion gap [Moles/Vol] 13 mmol/L Normal 9-18 [facility] [place] Comment on above: Performed By: #### B MP #### [facility] [address] [place], [place] [address] Calcium [Mass/Vol] 9.7 mg/dL Normal 8.5-10.2 [facility] Comment on above: Performed By: #### B MP #### [facility] [address] [place] [address] Chloride [Moles/Vol] 100 mmol/L Normal 97-105 [facility] [place] Comment on above: Performed By: #### B MP #### [facility] [place] [address] [place] [address] CO2 [Moles/Vol] 25 mmol/L Normal 22-30 [facility] [place] Comment on above: Performed By: #### B MP #### [place] [address] [place] [address] Creatinine [Mass/Vol] 0.72 mg/dL Low 0.73-1.22 [facility] [place] Comment on above: Performed By: #### B MP #### [place] [address] [place] [address] eGFR- Amer. >60 Normal [facility] Comment on above: Performed By: #### B MP #### [place] [address] [place] [address] GFR/1.73 sq M predicted among non-blacks MDRD (S/P/Bld) [Vol rate/Area] mL/min/{1.73_m2} Normal [facility] [place] Comment on above: Result Comment: eGFR (Estimated [...] GFR. Performed By: #### B MP #### [facility] [address] [place] [address] Glucose [Mass/Vol] 120 mg/dL High 74-99 [facility] Comment on above: Result Comment: The [place] Diabetes Association (ADA) provides guidance for cutoff [...] of Medical Care in Diabetes 2016, [place] [employer] Association. Diabetes Care. 2016.39(Suppl 1). Performed By: #### B MP #### [facility] [address] [address] Potassium [Moles/Vol] 4.3 mmol/L Normal 3.7-5.1 [facility] [place] Comment on above: Performed By: #### B MP #### [facility] [address] [place] [address] Sodium [Moles/Vol] 138 mmol/L Normal 136-144 [facility] Comment on above: Performed By: #### B MP #### [facility] [address] [place] [id number] Urea nitrogen [Mass/Vol] 22 mg/dL Normal 9-24 [facility] [place] Comment on above: Performed By: #### B MP #### [facility] [address] [place] [address] CNOVon 09-08-2019 CNOV Office Visit (DERMMN ) KIRTI DICKSON ([id number]) 1960 M Date Time Provider Department 09/08/19 10:20 AM GLENDY DAUGHERTY During your visit today, we recorded the [...] bilateral legs and abdomen during visit to [place]. 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 [...] [I87.2] Order(s):BASIC METABOLIC PNL [SQBMP] Order #: [id number] FUTURE UA CHEMSTRIP ONLY [SQUA] Order #: [id number] FUTURE SURGICAL PATHOLOGY [1687376] Order #: [id number]. #:[id number] Prescriptions as of 09/08/2019 Sig: OMEPRAZOLE ORAL [...] 0.1 % TOPICAL OINTMENT >> Devyn Andrews, RN 09/08/2019 10:21 AM >> JULIANA DEVYN FriSep 08, 2019 10:21 AM PRN PREDNISONE 5 MG TABLET >> Devyn Andrews, RN 09/08/2019 10:20 AM >> JOSAFAT ANDREWSN FriSep 08, 2019 10:20 AM Restarted prednisone since rash appeared within last few weeks COLCHICINE 0.6 MG CAPSULE >> Devyn Andrews, RN 09/08/2019 10:19 AM >> JULIANA DEVYN [facility] Sep 08, 2019 10:19 AM Not taking CAMPHOR-MENTHOL 0.5 %-0.5 % LOTION >> Devyn Andrews, RN 09/08/2019 10:21 AM >> JULIANA DEVYN [facility] Sep 08, 2019 10:21 AM Not taking PANTOPRAZOLE 40 MG TABLET,DELAYED RELEASE >> Devyn Andrews RN 09/08/2019 10:19 AM >> JULIANA DEVYN [facility] Sep 08, 2019 10:19 AM Not taking TRAZODONE 150 MG TABLET >> Devyn Andrews RN 09/08/2019 10:19 AM >> JULIANA DEVYN Wed Sep 08, 2019 10:19 AM Not taking [...] lab tests to the lab at the [facility] to look at your kidney numbers. Please continue the compression socks and elevation of your legs. Encounter Status:Closed by GLENDY DAUGHERTY MD on 09/19/19 Normal [facility] [place] PROGRESSon 09-08-2019 PROGRESS HNO ID: [id number] Author: Glendy Daugherty Service: ? Author Type: [...] bilateral legs and abdomen during visit to [place]. 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 Glendy Daugherty MD Normal [facility] [place] SURGICAL PATHOLOGYon 019 SURGICAL PATHOLOGY Specimen originated from [facility] Specimen #: [id number] Submitting Physician: GLENDY DAUGHERTY MD FINAL DIAGNOSIS A. 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 B. Skin, left upper arm, inferior, punch biops (DIF) - Negative direct immunofluorescence (see comment). Zoe/JOSE/henrietta/09/10/19 COMMENT A. Histologic sections reveal a relatively [...] in-situ hybridization tests have been determined by [facility]'s [facility] Pathology and Laboratory Medicine [place] ([facility]) in a manner consistent with CLIA requirements. One or more of these tests have not been cleared or approved by the FDA. [facility] is regulated under CLIA as qualified to [...] in one cassette. Gross examination performed at [address] 09/08/2019 5:40:43 PM B. Received in Power's is one piece of tissue measuring 0.3 cm in the greatest dimension. Totally frozen for Direct Immunofluorescence. Gross examination performed at [address] 09/08/2019 5:24:20 PM Date of Report: 09/10/2019 Date of Procedure: 09/08/2019 Date of Receipt: 09/08/2019 Submitted by: GLENDY DAUGHERTY MD Location: A61 Diagnostic interpretation performed at [place] [address]. CLIA Number: [id number] Normal [facility] [place] Urinalysison 09-08-2019 Bilirubin, Urine Negative Normal Negative [facility] Comment on above: Performed By: #### U A #### [place] [address] Clarity (U) Clear Normal Clear [facility] [place] Comment on above: Performed By: #### U A #### [place] [address] Color (U) Yellow Normal Yellow [facility] [place] Comment on above: Performed By: #### U A #### [place] [address] Comments SEE COMMENT Normal [facility] [place] Comment on above: Result Comment: Micr oscopic Examination Performed Performed By: #### U A #### [address], [place] [address] Glucose Ql (U) Negative Normal Negative [facility] [place] Comment on above: Performed By: #### U A #### [facility] [place] [address] [place], [place] [address] Hemoglobin/Blood,U r Negative Normal Negative [facility] [place] Comment on above: Performed By: #### U A #### [place] [address] [place] [address] Ketones Ql (U) Negative Normal Negative [facility] [place] Comment on above: Performed By: #### U A #### [place] [address] Leukest Negative Normal Negative [facility] [place] Comment on above: Performed By: #### U A #### [place] [address] Nitrite Ql (U) Negative Normal Negative [facility] [place] Comment on above: Performed By: #### U A #### [place] [address] pH (Bld) 7.0 Normal 4.5-8.0 [facility] [place] Comment on above: Performed By: #### U A #### [place] [address] Protein (U) [Mass/Vol] Negative Normal Negative [facility] [place] Comment on above: Performed By: #### U A #### [place] [address] [place], [place] [address] RBC (U) [#/Vol] 0-3 Normal 0-3 [facility] [place] Comment on above: Performed By: #### U A #### [place] [address] [place], [place] [address] Specific [place], Ur 1.020 Normal 1.005-1.030 [facility] [place] Comment on above: Performed By: #### U A #### [facility] [place] [address] [place], [place] [id number] Urine Jaspal Comment SEE COMMENT Normal [facility] Comment on above: Result Comment: N/A Performed By: #### U A #### [facility] [place] [address] [place], [place] [id number] Urobilinogen Qn (U) Normal Normal Normal [facility] [place] Comment on above: Performed By: #### U A #### [facility] [place] [address] [place], [place] [id number] WBC (Bld) [#/Vol] 0-5 Normal 0-5 [facility] Comment on above: Performed By: #### U A #### [facility] [place] [address] [place], [place] [address] Vital Signs Date Time Vital Sign Value Performing Clinician Teressa miller 02-25-2023 14:15-0400 Blood Pressure Location Cuco FELISHA [facility] 02-25-2023 14:15-0400 Diastolic blood pressure 88 mm[Hg] Cuco BAEZA [facility] 02-25-2023 14:15-0400 Heart rate 78 /min Cuco BAEZA [facility] 02-25-2023 14:15-0400 Respiratory rate 16 /min Cuco BAEZA [facility] 02-25-2023 14:15-0400 Systolic blood pressure 130 mm[Hg] Cuco BAEZA [facility] Encounters Encounter Date Encounter Type Care Provider Facility Start: 01-19-2024 End: 01-19-2024 ambulatory [facility] Start: 12-19-2023 End: 12-19-2023 ambulatory [facility] Start: 11-06-2023 End: 11-06-2023 ambulatory [facility] Start: 09-29-2023 End: 09-29-2023 ambulatory NANETTE FLETCHER [facility] Start: 02-25-2023 End: 02-26-2023 ambulatory Cuco [...] SARS-CoV-2 (COVID-19 ) mRNA BNT-162b2 vax [facility] JHONYL [facility] 03-06-2021 SARS-CoV-2 (COVID-19 ) mRNA BNT-162b2 vax Cuco BOOKERL [facility] 02-12-2021 SARS-CoV-2 (COVID-19 ) mRNA BNT-162b2 vax Cuco JHONYL [facility] NEGATED: Highlighted row has not occurred!02-25-2023 influenza virus vaccine, unspecified formulation Cuco FELISHA [facility] Payers Date Payer Category Payer Unknown [id number] 2016 Self-pay 1960 Unknown [id number] [id number] 1960 Unknown [id number] 1960 Unknown [id number] Social History Date Type Detail Facility Start: 02-25-2023 Tobacco smoking status Never s moked tobacco (finding) [facility] Tobacco smoking status Never [facility] [place] Sex Assigned At Male [facility] Functional Status Date Assessment Result Facility 02-25-2023 Functional Status N/A [facility] Progress note 01-19-2024 Note Date & Type Note Facility 01-19-2024 Note [facility] Note Chief Complaint: Patient here for follow up heart cath performed on 12/19/2023. He had CT chest 2 days ago at [facility]. C/o left nipple tenderness. Denies chest pain, SOB, LE edema, and feels much better. He has lost 51 lbs since last visit in Oct 2023. HPI: Kirti Dickson is a 63 y.o. [...] the causes of his shortness of breath. Update 01/19/2024: Doing very well; has no significant shortness of breath. Denies chest pain. Has lost weight since we last saw him. Has had uncomfortable tenderness of the left breast/nipple. This started about 3 weeks ago. Likely related to spironolactone. Cardiology ROS: Review of Systems Constitutional: Positive for malaise/fatigue and weight loss (51# since Oct 2023). Musculoskeletal: Positive for arthritis, back pain and [...] no known allergies. Medications Current Outpatient Medications: dapagliflozin propanediol (Farxiga) 10 mg, Take 1 tablet (10 mg) by mouth in the morning., Disp: 30 tablet, Rfl: 0 furosemide (Lasix) 40 mg tablet, Take 2 tablets (80 mg) by mouth in the morning and at bedtime., Disp: 360 tablet, Rfl: 3 spironolactone (Aldactone) 50 mg tablet, Take 50 mg by mouth in the morning., Disp: , Rfl: traZODone (Desyrel) 50 mg tablet, Take 1-3 tablets by mouth at bedtime., Disp: , Rfl: verapamil ER (Veralan) 180 mg 24 hr capsule, Take 180 mg by mouth in the morning., Disp: , Rfl: Last Recorded Vitals BP 139/87 (BP Location: Left arm, Patient Position: Sitting) Pulse 71 Ht 1.829 m (6') Wt (!) 165 kg (363 lb) SpO2 97% BMI 49.23 kg/m??? Physical Examination: GENERAL: alert and oriented [...] extremities. PSYCH: appropriate mood, affect, and judgement. Cardiovascular Laboratory Report FINAL IMPRESSIONS: Nonobstructive coronary arteries angiographically [...] further investigations as clinically appropriate Consider referral (more content not included)... [facility] Progress note 12-19-2023 Note Date & Type [...] internal jugular vein was obtained. A 6 Sami 11 cm sheath was inserted without difficulty. [...] left radial artery was obtained. A 6 Sami glide sheath was inserted without difficulty. Bilateral [...] Exertional shortness of breath, abnormal stress test [facility] Clinical Note 12-19-2023 Note Date & Type Note Facility 12-19-2023 Note Patient: Kirti willis Procedure Information Date/Time: 12/19/23 0830 Procedures: Coronary angiography ( Right IJ and Left Radial approach) (Bilateral) - right internal jugular and left radial approach Right heart cath Location: [facility] / [facility] (Cath) Providers: Lindsey Swain [...] Additional Equipment Requests Lindsey Swain MD, MPH, [facility], [facility], [facility] Interventional Cardiology Pager Email: [email or web address] 11-06-2023 Note Date & Type Note Facility 11-06-[address] [facility] Cardiology Clinic Note Chief Complaint: Patient [...] spironolactone 25 m (more content not included)... [facility] Progress note 09-29-2023 Note Date & [...] All other systems reviewed and are negative. [facility] Progress note 09-29-2023 Note Date & Type Note Facility 09-29-2023 Note Cardiovascular Medic [facility] SUBJECTIVE No chief complaint on file. [...] about 6 weeks (around 11/10/2023). Nanette Fletcher APRN-[employer] [facility] Clinical Note 02-25-2023 Note Date & [...] SARS-CoV-2 (COVID-19) mRNA BNT-162b2 vax 02/12/2021 Recorded [facility] Comment on above: Result Comment: Elec tronically Signed By: FELISHA MASTERSON, Cuco Ingram\Date and Time Signed: 02/25/23 15:46 EDT Evaluation + Plan note Note Date & Type Note Facility Evaluation + Plan note No data available for this section General [facility] Discharge instructions Note Date & Type Note Facility Hospital Discharge instructions No data available for this section [facility] Progress note Note Date & Type Note Facility Progress note No data available for this section [facility] Summary Purpose Family History No Family History [...] section and content) DATE CREATED AUTHOR 09/19/2019 [facility] DATE CREATED AUTHOR AUTHOR'S ORGANIZ ATION 09/21/2022 [facility] DATE CREATED AUTHOR AUTHOR'S ORGANIZ ATION 02/28/2023 [facility] DATE CREATED AUTHOR AUTHOR'S ORGANIZ ATION 01/20/2024 [facility] Patient Care team seth sweeney (unrecognized section and content) Personnel Name: Blas Eubanks MD Address: Address: [address] [place] [address] FOR RECORDS PERTAINING TO PATIENTS WHO ARE [...] BE BASED ON THE PRIMARY CLINICAL RECORDS. [employer] provides no warranty or guarantee of the accuracy or completeness of information in this document.
[2024-01-21] MEDS: DIPHENHYDRAMINE HCL 50 MG/ML (1ML) VIAL IV (16:53)
[2024-01-21] MEDS: FAMOTIDINE/PF 20 MG/2 ML VIAL IV (16:53)
--- NOTE | 2024-01-21 17:54 | ED.ALLEREA1 ---
HPI - Allergic Reaction General Chief complaint: Allergic Reaction Stated complaint: Allerigic Reaction Time Seen by Provider: 01/21/24 16:36 Source: patient and family Mode of arrival: walk-in Limitations: no limitations Related Data Home Medications Medication Instructions Recorded Confirmed furosemide 40 mg tablet 40 mg PO DAILY 09/19/23 09/19/23 trazodone 50 mg tablet 50 mg PO DAILY 09/19/23 09/19/23 verapamil 180 mg 24 hr 180 mg PO DAILY 09/19/23 09/19/23 capsule,extended release dapagliflozin propanediol 10 mg 10 mg PO DAILY 01/21/24 01/21/24 tablet (Farxiga) Allergies Allergy/AdvReac Type Severity Reaction Status Date / Time No Known Drug Allergies Allergy Verified 09/19/23 22:41 Exam Constitutional Vital Signs, click to edit/add: Last Vital Signs Temp 98 F 01/21/24 16:41 Pulse 85 01/21/24 16:59 Resp 18 01/21/24 16:59 BP 117/85 01/21/24 16:59 Pulse Ox 94 L 01/21/24 16:59 O2 Del Method Room Air 01/21/24 16:59 Course Vital Signs Vital signs: Vital Signs Temperature 98 F 01/21/24 16:41 Pulse Rate 94 H 01/21/24 16:41 Respiratory Rate 20 01/21/24 16:41 Blood Pressure 107/60 01/21/24 16:41 Pulse Oximetry 95 01/21/24 16:41 Oxygen Delivery Method Room Air 01/21/24 16:41 Temperature 98 F 01/21/24 16:41 Pulse Rate 85 01/21/24 16:59 Respiratory Rate 18 01/21/24 16:59 Blood Pressure 117/85 01/21/24 16:59 Pulse Oximetry 94 L 01/21/24 16:59 Oxygen Delivery Method Room Air 01/21/24 16:59 Discharge Plan Discharge Chief Complaint: Allergic Reaction Clinical Impression: Allergic reaction Patient Disposition: Home, Self-Care Time of Disposition Decision: 17:53 Condition: Good Mode of Transportation: Private Vehicle Prescriptions / Home Meds: No Action furosemide 40 mg tablet 40 mg PO DAILY trazodone 50 mg tablet 50 mg PO DAILY verapamil 180 mg capsule,ext rel. pellets 24 hr 180 mg PO DAILY dapagliflozin propanediol [Farxiga] 10 mg tablet 10 mg PO DAILY Instructions: General Allergic Reaction (ED) Stand Alone Forms: Portal Instructions Referrals: Emory Eubanks MD [Primary Care Provider] - 1 week
[2024-01-21] MEDS: ONDANSETRON PF 4 MG/2 ML VIAL IV (18:10)
== END 2024-01-21 18:23 | disposition home or self-care (01) ==
PROVIDERS: Emergency Provider Emergency Medicine; PCP Family Medicine
DX: T78.40XA Allergy, unspecified, initial encounter (principal); E66.9 Obesity, unspecified; Z68.42 Body mass index [BMI] 45.0-49.9, adult
CPT/HCPCS: 93005; 96374; 96375; 99284; J1200; J2405

== ENCOUNTER 2025-03-11 09:35 | Outpatient (OUT) | payer OTHER, SELFPAY ==
--- NOTE | 2025-03-11 09:00 | CA_ITS ---
Patient Name: KIRTI DICKSON MR#: [id number] : 1960 Exam Date: 03/11/2025 Ordering Doctor: DR THUAN YADAV M.D. ECHOCARDIOGRAM REPORT PROCEDURE: CA ECHO DOPPLER COMPLETE INDICATIONS: Bicuspid aortic valve, hypertension COMPARISON: None. DESCRIPTION: COMPLETE ECHOCARDIOGRAM Real-time transthoracic echocardiography with 2D, M-mode, spectral and color flow Doppler performed. QUALITY: Technically difficult with poor sound transmission due patient's condition. BSA 2.71 m2 LEFT VENTRICLE: Normal chamber size. Mild concentric hypertrophy. Normal systolic function. LV EF: Normal left ventricular ejection fraction, (>55%). DIASTOLIC: Normal diastolic function. ATRIAL SEPTUM: LEFT ATRIUM: Normal chamber size. RIGHT ATRIUM: Mild dilatation. RIGHT VENTRICLE: Normal chamber size. Normal systolic function. TRICUSPID VALVE: Normal mobility and thickness. No stenosis with no regurgitation. MITRAL VALVE: Normal mobility and thickness. No evidence of mitral valve stenosis. There is no mitral annular calcification. No mitral regurgitation. AORTIC VALVE: Not well visualized. No evidence of aortic valve stenosis. No aortic regurgitation. AORTIC ROOT: Moderately dilated, measuring 4.5 cm. Ascending aorta is moderately dilated (4.3 cm). PULMONIC VALVE: Not well visualized. No stenosis. No regurgitation. PERICARDIUM: No evidence of pericardial effusion. IVC: IVC is dilated, does not fully collapse. PLEURA: CONCLUSION: 1. Mild concentric left ventricular hypertrophy with normal systolic function. Estimated LVEF is 55 to 60%. 2. Normal right ventricular size and systolic function. 3. No significant valvular dysfunction. 4. The aortic valve is poorly visualized. 5. Moderately dilated aortic root measuring 4.5 cm. Moderately dilated ascending aorta measuring 4.3 cm. 6. Technically difficult study due to poor sound transmission. Adult Echocardiography Procedure Report Left Ventricle LVEDD (3.7 - 5.6 cm): 4.28 cm LVESD (2.2 - 4.0 cm): 3.32 cm LVIVS thickness (0.6 - 1.2 cm): 1.37 cm LVPW thickness (0.5 - 1.0 cm): 1.32 cm e': 0.12 m/s E - e': 6.83 LVOT Max Gradient: 2.19 mm[Hg] LVOT Area (cm2): 0.74 m/s Peak Velocity (LVOT): 0.74 m/s Mean Velocity (LVOT): 0.47 m/s LVOT Diameter 2.75 cm Left Atrium LA Volume Index (2D A2C): 32.18 ml/m2 Left Atrium Systolic Dimension: 4.08 cm Mitral Valve MV E to A Ratio: 1.69 Mitral Valve A-Wave Peak Velocity: 0.47 m/s Mitral Valve E-Wave Peak Velocity: 0.79 m/s Right Ventricle Aorta AO Root Diam: 4.52 cm Ascending Ao Diam: 4.31 cm Aortic Valve AoV Area (Peak Bucky): 3.13 cm2, 3.13 cm2 AoV Area (VTI): 3.23 cm2, 3.23 cm2 Peak Velocity(Antegrade Flow): 1.40 m/s Peak Gradient(Antegrade Flow): 7.86 mm[Hg] Mean Velocity(Antegrade Flow): 0.88 m/s Mean Gradient(Antegrade Flow): 3.71 mm[Hg] Velocity Time Integral: 28.31 cm Tricuspid Valve Pulmonic Valve Mean Gradient: 1.78 mm[Hg] Mean Velocity: 0.63 m/s Peak Velocity: 0.88 m/s, 0.72 m/s Peak Gradient: 2.10 mm[Hg], 3.06 mm[Hg] Right Atrium Right Atrium Systolic Pressure: 60.09 ml, 60.09 ml Dictated by: Brice Paul M.D. on 03/12/2025 at 18:31 Approved by: Briec Paul M.D. on 03/12/2025 at 19:21
--- OUTSIDE RECORDS SUMMARY | 2025-03-11 09:48 | XMS_ITS | CCD ---
Author Organization [facility] Inform ion Partnership [facility] Care Team Providers Care Construction Rep Name Role Phone DR BLAS EUBANKS Admitting Unavailable DR BLAS EUBANKS Attending Unavailable FRANK NAGY Primary Care Unavailable DR BLAS EUBANKS Consulting Unavailable Blas Eubanks Primary Care Physician [phone] Cuco BAEZA Attending Unavailable THUAN YADAV Attending Unavailable MAI MAYBERRY Attending Unavailable Allergies Allergy Classification Reported Allergen(s) Allergy Type Date of Onset Reaction(s) Facility (1 source) Triamcinolone; Translations: [TRIAMCINOLONE ACETONIDE] Drug Allergy 02-01-2025 [facility] Repository Medications Current Medications Medication Drug Class(es) Dates [...] Classification Problem Date Documented Da te Episodic/Chronic Aortic; peripheral; and visceral artery aneurysms (2 sources) Thoracic aortic ectasia; Translations: [Thoracic aortic ectasia] Onset: 02-01-2025 Chronic Coagulation and hemorrhagic disorders (4 sources) Thrombocytopenia, unspecified; Translations: [THROMBOCYTOPENIA UNSPECIFIED] Onset: 02-28-2022 Chronic Congestive heart failure; nonhypertensive (6 sources) Acute on chronic diastolic (congestive) heart failure; Translations: [Chronic diastolic (congestive) heart failure] Onset: 07-20-2024 Chronic Diseases of white blood cells (1 source) Decreased white blood cell count, unspecified; Translations: [DECREASED WBC COUNT UNSPECIFIED] Onset: 03-04-2022 Chronic Essential hypertension (1 source) Hypertensive disorder 02-14-2023 Chronic Other lower respiratory disease (2 sources) Other forms of dyspnea; Translations: [Other forms of dyspnea] Onset: 11-07-2023 Episodic Other lower respiratory disease [...] to excess calories] Onset: 09-29-2023 Chronic Other skin disorders (1 source) Disorder of skin; Translations: [Disorder of the skin and subcutaneous tissue, unspecified] Onset: 02-25-2023 Episodic Other skin disorders (1 source) Lesion of scalp 02-25-2023 Episodic Ange-; endo-; and myocarditis; cardiomyopathy (except that caused by tuberculosis or sexually transmitted disease) (2 sources) Other specified diseases of pericardium; Translations: [Other specified diseases of pericardium] Onset: 02-01-2025 Episodic Results Test Name Value Interpretation Reference Range Facility Office Visiton 02-01-2025 Follow-up visit [id number] Jas Dickson R 1960 M Date Provider Department Center 02/01/2025 THUAN TRAN Family History Problem Relation Age of Onset Coronary artery disease Father Other Father Family Status - Relation Status Age at Father Level of Service:20288 [place] OFFICE/OUTPATIENT ESTABLISHED MOD MDM 30 MIN [facility] 36on 07-22-[address] Eubanks just started patient on Adipex. I tried to call the patient but was unable to get a hold of him. Please let patient know I reviewed contraindications for Adipex and heart failure and uncontrolled HTN are noted. Advise for patient to stop Adipex as it can have negative cardiac effects that do not seem worth the risk. Dicussed with a bariatric colleague who advised Contrave may be an alternative option but to be further discussed with PCP. Recommend for patient to be referred to bariatric weight loss center. Thank you! [facility] Telephoneon 07-22-2024 Telephone [id number] Jas Dickson R 1960 [facility] Provider Department [place] 07/22/2024 MAI JOY Walker [facility] Family History Problem Relation Age of Onset Coronary artery disease Father Other Father Family Status - Relation Status Age at Father [facility] Office Visiton 07-20-2024 Follow-up visit [id number] Jas Dickson 1960 [facility] Provider Department [place] 07/20/2024 MAI JOY GERHARD [place] Family History Problem Relation Age of Onset Coronary artery disease Father Other Father Family Status - Relation Status Age at Father Level of Service:36742 [place] OFFICE/OUTPATIENT ESTABLISHED MOD MDM 30 MIN Reason for Visit and Comments: Hypertension [721989] [facility] Ambulatory Visit Summaryon 0 02-25-2023 Ambulatory Visit [...] 50.0-59.9, adult HTN (hypertension) Morbid obesity Normal [facility] Physician Referralon 023 Physician Referral [phone] [id number] Normal [facility] CBC AUTO DIFFon 02-28-2022 BASO # 0.0 103/ul Normal 0.0-0.1 [facility] Comment on above: Performed By: #### C BC #### [facility] [address] [place] [address] Dr. Bashir Lemons Basophils/100 WBC (Bld) 0.5 % Normal 0.2-2.0 [facility] Comment on above: Performed By: #### C BC #### [facility] [address] [place] [address] Dr. Bashir Lemons EO # 0.0 103/ul Normal 0.0-0.7 [facility] Comment on above: Performed By: #### C BC #### [facility] [address] [place] [address] Dr. Bashir Lemons Eosinophils/100 WBC (Bld) 0.0 % Critically low 0.9-7.0 [facility] Comment on above: Performed By: #### C BC #### [facility] [address] [place] [address] Dr. Bashir Lemons Erythrocyte distribution width (RBC) [Ratio] 12.3 % Normal 11.0-15.0 [facility] Comment on above: Performed By: #### C BC #### [facility] [address] [place] [address] Dr. Bashir Lemons Hematocrit (Bld) [Volume fraction] 41.9 % Critically low 42.0-54.0 [facility] Comment on above: Performed By: #### C BC #### [facility] [address] [place] [address] Dr. Bashir Lemons Hemoglobin (Bld) [Mass/Vol] 13.8 g/dL Critically low 14.0-18.0 [facility] Comment on above: Performed By: #### C BC #### [facility] [address] [place] [address] Dr. Bashir Lemons IG # 0.02 10e3/ul Normal 0.00-0.03 [facility] Comment on above: Performed By: #### C BC #### [facility] [address] [place] [address] Dr. Bashir Lemons IG % 0.5 % Normal 0.0-0.5 [facility] Comment on above: Performed By: #### C BC #### [facility] [address] [place] [address] Dr. Bashir Lemons LYMPH # 1.3 103/ul Normal 1.2-3.8 [facility] Comment on above: Performed By: #### C BC #### [facility] [address] [place] [address] Dr. Bashir Lemons Lymphocytes/100 WBC (Bld) 34.2 % Normal 20.5-60.0 [facility] Comment on above: Performed By: #### C BC #### [facility] [address] [place] [address] Dr. Bashir Lemons MANUAL DIFF REQ NO Normal [facility] Comment on above: Performed By: #### C BC #### [facility] [address] [address] [address] Bashir Lemons MCH (RBC) [Entitic mass] 28.9 pg Normal 25.9-34.0 [facility] Comment on above: Performed By: #### C BC #### [facility] [address] [place] [address] Dr. Bashir Lemons MCHC (RBC) [Mass/Vol] 32.9 g/dL Normal 29.9-35.2 [facility] Comment on above: Performed By: #### C BC #### [facility] [address] [place] [address] Dr. Bashir Lemons MCV (RBC) [Entitic vol] 87.8 fL Normal 80.0-94.0 [facility] Comment on above: Performed By: #### C BC #### [facility] [address] [place] [address] Dr. Bashir Lemons MONO # 0.5 103/ul Normal 0.3-0.8 [facility] Comment on above: Performed By: #### C BC #### [facility] [address] [place] [address] Dr. Bashir Lemons Monocytes/100 WBC (Bld) 12.1 % Critically high 1.7-12.0 [facility] Comment on above: Performed By: #### C BC #### [facility] [address] [place] [address] Dr. Bashir Lemons NEUT # 2.0 103/ul Normal 1.4-6.5 [facility] Comment on above: Performed By: #### C BC #### [facility] [address] [place] [address] Dr. Bashir Lemons Neutrophils/100 WBC (Bld) 52.7 % Normal 43.0-75.0 [facility] Comment on above: Performed By: #### C BC #### [facility] [address] [place] [address] Dr. Bashir Lemons Platelet mean volume (Bld) [Entitic vol] 9.5 fL Normal 9.5-13.5 [facility] Comment on above: Performed By: #### C BC #### [facility] [address] [place], [place] [address] Dr. Bashir Lemons PLT 149 103/ul Critically low 150-450 [facility] Comment on above: Performed By: #### C BC #### [facility] [address] [place], [place] [address] Dr. Bashir Lemons RBC 4.77 106/ul Normal 4.70-6.10 [facility] Comment on above: Performed By: #### C BC #### [facility] [address] [place], [place] [address] Dr. Bashir Lemons WBC 3.8 103/ul Critically low 4.0-11.0 [facility] Comment on above: Performed By: #### C BC #### [facility] [address] [place], [place] [address] Dr. Bashir Lemons Basic Metabolic Panlon 09-08 Anion gap [Moles/Vol] 13 mmol/L Normal 9-18 [facility] Comment on above: Performed By: #### B MP #### [facility] [employer] [address] [place], [place] [address] Calcium [Mass/Vol] 9.7 mg/dL Normal 8.5-10.2 [facility] Comment on above: Performed By: #### B MP #### [facility] [employer] [address] [place], [place] [address] Chloride [Moles/Vol] 100 mmol/L Normal 97-105 [facility] Comment on above: Performed By: #### B MP #### [facility] [employer] [address] [place], [place] [address] CO2 [Moles/Vol] 25 mmol/L Normal 22-30 [facility] Comment on above: Performed By: #### B MP #### [facility] [address] [place], [place] [address] Creatinine [Mass/Vol] 0.72 mg/dL Low 0.73-1.22 [facility] Comment on above: Performed By: #### B MP #### [facility] [employer] [address] [place] [id number] eGFR- Amer. >60 Normal [facility] Comment on above: Performed By: #### B MP #### [facility] [address] [place] [id number] GFR/1.73 sq M predicted among non-blacks MDRD (S/P/Bld) [Vol rate/Area] mL/min/{1.73_m2} Normal [facility] Comment on above: Result Comment: eGFR (Estimated [...] GFR. Performed By: #### B MP #### [facility] [address] [id number] Glucose [Mass/Vol] 120 mg/dL High 74-99 [facility] Comment on above: Result Comment: The [place] [employer] Association (ADA) provides guidance for cutoff [...] Standards of Medical Care in Diabetes 2016, [place] [employer]. Diabetes Care. 2016.39(Suppl 1). Performed By: #### B MP #### [facility] [address] [place], [place] [id number] Potassium [Moles/Vol] 4.3 mmol/L Normal 3.7-5.1 [facility] Comment on above: Performed By: #### B MP #### [facility] [address] [place], [place] [address] Sodium [Moles/Vol] 138 mmol/L Normal 136-144 [facility] Comment on above: Performed By: #### B MP #### [facility] [address] [place], [place] [address] Urea nitrogen [Mass/Vol] 22 mg/dL Normal 9-24 [facility] Comment on above: Performed By: #### B MP #### [facility] [address] [place], [place] [address] CNOVon 09-08-2019 CNOV Office Visit (DERMMN ) KIRTI DICKSON ([id number]) 1960 M Date Time Provider Department 09/08/19 [...] bilateral legs and abdomen during visit to Tomas Anderson. 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 Please continue the compression socks and elevation of your legs. Referring Provider: SELF [200] Allergies As of Date: 09/08/2019 Noted Allergy Reaction SEASONAL ALLERGIES 02/18/2017 14 - Other: See Comments Comments: burning itchy eyes Date Reviewed: 09/08/2019 Reviewed by: Devyn Greenhouse, RN - Fully Assessed Reason for Visit: Follow Up [171] Cmt: Iga mediated leukocytoclastic vasculitis Primary Visit Diagnosis:Vasculitis (HCC) [I77.6] Other Visit Diagnoses:Dermatitis due to unknown cause [L30.9] Venous stasis dermatitis of both lower extremities [I87.2] Order(s):BASIC METABOLIC PNL [SQBMP] Order #: [id number] FUTURE UA CHEMSTRIP ONLY [SQUA] Order #: [id number] FUTURE SURGICAL PATHOLOGY [4689483] Order #: [id number]. #:[id number] Prescriptions as of 09/08/2019 Sig: OMEPRAZOLE ORAL [...] lab tests to the lab at the [facility] to look at your kidney numbers. Please continue the compression socks and elevation of your legs. Encounter Status:Closed by GLENDY DAUGHERTY MD on 09/19/19 Normal [facility] PROGRESSon 09-08-2019 PROGRESS HNO ID: [id number] Author: Glendy Daugherty Service: ? Author Type: [...] bilateral legs and abdomen during visit to Tomas Anderson. 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 Glendy Daugherty MD Normal [facility] SURGICAL PATHOLOGYon 019 SURGICAL PATHOLOGY Specimen originated from [facility] Specimen #: [id number] Submitting Physician: GLENDY DAUGHERTY MD FINAL DIAGNOSIS [...] in-situ hybridization tests have been determined by [facility]'s [facility] Pathology and Laboratory Medicine [place] [facility] in a manner consistent with CLIA requirements. One or more of these tests have not been cleared or approved by the FDA. [facility] is regulated under CLIA as qualified to [...] in one cassette. Gross examination performed at [address] 09/08/2019 5:40:43 PM B. Received in Power's is one piece of tissue measuring 0.3 cm in the greatest dimension. Totally frozen for Direct Immunofluorescence. Gross examination performed at [address] 09/08/2019 5:24:20 PM Date of Report: 09/10/2019 Date of Procedure: 09/08/2019 Date of Receipt: 09/08/2019 Submitted by: GLENDY DAUGHERTY MD Location: A61 Diagnostic interpretation performed at [facility], [address] [place] [address]. CLIA Number: [id number] Normal [facility] Urinalysison 09-08-2019 Bilirubin, Urine Negative Normal Negative [facility] Comment on above: Performed By: #### U A #### [place] [address] Clarity (U) Clear Normal Clear [facility] Comment on above: Performed By: #### U A #### [place] [address] Color (U) Yellow Normal Yellow [facility] Comment on above: Performed By: #### U A #### [place] [address] Comments SEE COMMENT Normal [facility] Comment on above: Result Comment: Micr oscopic Examination Performed Performed By: #### U A #### [place] [address] Glucose Ql (U) Negative Normal Negative [facility] Comment on above: Performed By: #### U A #### [place] [address] Hemoglobin/Blood,U r Negative Normal Negative [facility] Comment on above: Performed By: #### U A #### [place] [address] Ketones Ql (U) Negative Normal Negative [facility] Comment on above: Performed By: #### U A #### [place] [address] Leukest Negative Normal Negative [facility] Comment on above: Performed By: #### U A #### [facility] [address] [place], [place] [address] Nitrite Ql (U) Negative Normal Negative [facility] Comment on above: Performed By: #### U A #### [facility] [address] [place], [place] [address] pH (Bld) 7.0 Normal 4.5-8.0 [facility] Comment on above: Performed By: #### U A #### [place] [address] [place] [address] Protein (U) [Mass/Vol] Negative Normal Negative [facility] Comment on above: Performed By: #### U A #### [place] [address] RBC (U) [#/Vol] 0-3 Normal 0-3 [facility] Comment on above: Performed By: #### U A #### [place] [address] [place] [address] [facility], Ur 1.020 Normal 1.005-1.030 [facility] Comment on above: Performed By: #### U A #### [place] [id number] Urine Jaspal Comment SEE COMMENT Normal [facility] Comment on above: Result Comment: N/A Performed By: #### U A #### [address] [address] [place] [id number] Urobilinogen Qn (U) Normal Normal Normal [facility] Comment on above: Performed By: #### U A #### [address] [address] [place] [id number] WBC (Bld) [#/Vol] 0-5 Normal 0-5 [facility] Comment on above: Performed By: #### U A #### [facility] [address] [place] [address] [place], [place] [address] Vital Signs Date Time Vital Sign Value Performing Clinician Anabellei paul 02-25-2023 14:15-0400 Blood Pressure Location Cuco BAEZA [facility] 02-25-2023 14:15-0400 Diastolic blood pressure 88 mm[Hg] Cuco BOOKERL [facility] 02-25-2023 14:15-0400 Heart rate 78 /min Cuco NILL [facility] 02-25-2023 14:15-0400 Respiratory rate 16 /min Cuco NILL [facility] 02-25-2023 14:15-0400 Systolic blood pressure 130 mm[Hg] Cuco BAEZA [facility] Encounters Encounter Date Encounter Type Care Provider Facility Start: 02-01-2025 End: 02-01-2025 ambulatory [facility] Start: 07-20-2024 End: 07-20-2024 ambulatory [facility] Start: 02-25-2023 End: 02-26-2023 ambulatory Cuco BAEZA Facility:[facility] Start: 02-25-2023 End: 02-25-2023 Patient encounter procedure Cuco BAEZA [facility] Start: 02-07-2023 ambulatory Cuco BAEZA Facility:[facility] Start: 02-28-2022 End: 03-01-[address] BLAS EUBANKS Facility:[facility] Procedures Date Procedure Procedure Detail Performing Clinician Excision of uvula Cuco ARREDONDO LL Gastric sleeve Cuco BAEZA Immunizations Immunization Date Immunization Notes Care Provider Fa cili 11-14-2021 SARS-CoV-2 (COVID-19 ) mRNA BNT-162b2 vax Cuco BAEZA [facility] 03-06-2021 SARS-CoV-2 (COVID-19 ) mRNA BNT-162b2 vax Cuco BAEZA [facility] 02-12-2021 SARS-CoV-2 (COVID-19 ) mRNA BNT-162b2 vax Cuco BAEZA [facility] NEGATED: Highlighted row has not occurred!02-25-2023 influenza virus vaccine, unspecified formulation Cuco BAEZA [facility] Payers Date Payer Category Payer Unknown [id number] 2016 Self-pay 1960 Unknown [id number] [id number] 1960 Unknown [id number] 1960 Unknown [id number] Social History Date Type Detail Facility Start: 02-25-2023 Tobacco smoking status Never s moked tobacco (finding) [facility] Tobacco smoking status Never [facility] Sex Assigned At Male [facility] Functional Status Date Assessment Result Facility 02-25-2023 Functional Status N/A [facility] Progress note 02-01-2025 Note Date & Type Note Facility 02-01-2025 Note [facility] Note Chief Complaint: Patient here for 6 mo follow up HFpEF, hypertension, and aortic dilatation. Echo was not ordered at last visit in Jul 2024, therefor not performed. No recent labs. Down 18# since last visit. Denies chest pain and SOB. recent labs. HPI: Kirti Dickson is a 63 y.o. [...] 3 weeks ago. Likely related to spironolactone. UPDATE 02/01/2025 Doing well; no chest pain, shortness of breath seems to have improved, no orthopnea, no paroxysmal external dyspnea. Cardiology ROS: Review of Systems Constitutional: Positive for weight loss (18# since Jul 2024). Musculoskeletal: Positive for arthritis, back pain and [...] Rfl: 0 furosemide (Lasix) 40 mg tablet, TAKE 2 TABLETS IN THE MORNING AND AT BEDTIME, Disp: 360 tablet, Rfl: 3 phentermine (Adipex-P) 37.5 mg tablet, 1 (one) time each day at the same time., Disp: , Rfl: potassium chloride CR (Klor-Con) 10 mEq ER tablet, 10 mEq two times daily., Disp: , Rfl: traZODone (Desyrel) 50 mg tablet, Take 1-3 tablets by mouth at bedtime., Disp: , Rfl: verapamil ER (Veralan) 180 mg 24 hr capsule, Take 180 mg by mouth in the morning., Disp: , Rfl: Last Recorded Vitals BP 158/86 (BP Location: Left wrist, Patient Position: Sitting) Pulse 73 Ht 1.829 m (6') Wt (!) 163 kg (360 lb) SpO2 96% BMI 48.82 kg/m??? Physical Examination: GENERAL: alert and oriented [...] extremities. PSYCH: appropriate mood, affect, and judgement. INVESTIGATIONS: Cardiovascular Laboratory Report FINAL IMPRESSIONS: Nonobstructive coronary [...] p.o. twice daily and order a basic (more content not included)... [facility] Progress note 07-20-2024 Note Date & Type Note Facility 07-20-2024 Note [facility] SUBJECTIVE Chief Complaint Patient presents with Hypertension Kirti Dickson is a 64 y.o. male here for follow-up. HPI PMHx: morbid obesity s/p gastric sleeve surgery in 2017, hypertension, obstructive sleep apnea (noncompliant with CPAP), peripheral venous insufficiency, BLE stasis dermatitis, IgA vasculitis, pericardial calcification He has been doing well since last seen. He is trying to lose weight. He was started on adapex yesterday per his PCP. PCP is going to be closely following him to assess his BP. His leg swelling has been doing well. Denies c/o CP, dyspnea, orthopnea, PND, dizziness/LH, palpitations, syncope. He has a bone spur on his toe, this causes discomfort which can limit his activity. He plans to discuss with ortho/bilingual manager about getting this fixed soon so he can try to exercise more. Patient Active Problem List Diagnosis Abnormal chest x-ray Anxiety Arm swelling Dyspnea Essential hypertension History of bariatric surgery History of erectile dysfunction IgA mediated leukocytoclastic vasculitis (CMS/HCC) Insomnia Lower extremity edema Morbid obesity (CMS/HCC) Rash Senile nevus of skin Sleep apnea Varicose veins of lower extremity Abnormal stress test Peripheral venous insufficiency Sialolithiasis Past Medical History: Diagnosis Date Dyspnea Sleep apnea had surgery, untreated now Family History Problem Relation Name Age of Onset Coronary artery disease Father Other (CABG) Father Social History Tobacco Use Smoking status: Never Smokeless tobacco: Never Substance Use Topics Alcohol use: Yes No Known Allergies Review of Systems Constitutional: Negative for chills, decreased appetite, fever, malaise/fatigue and weight gain. Cardiovascular: Positive for leg swelling. Negative for chest pain, dyspnea on exertion, irregular heartbeat, near-syncope, orthopnea, palpitations, paroxysmal nocturnal dyspnea and syncope. Hematologic/Lymphatic: Negative for bleeding problem. Does not bruise/bleed easily. OBJECTIVE Visit Vitals BP (!) 150/94 Pulse 77 Ht 1.829 m (6') Wt (!) 171 kg (378 lb) SpO2 91% BMI 51.27 kg/m??? Smoking Status Never BSA 2.95 m??? Medications: Current Outpatient Medications: dapagliflozin propanediol (Farxiga) 10 mg, Take 1 tablet (10 mg) by mouth in the morning., Disp: 30 tablet, Rfl: 0 furosemide (Lasix) 40 mg tablet, Take 2 tablets (80 mg) by mouth in the morning and at bedtime., Disp: 360 tablet, Rfl: 3 phentermine (Adipex-P) 37.5 mg tablet, 1 (one) time each day at the same time., Disp: , Rfl: potassium chloride CR (Klor-Con) 10 mEq ER tablet, 10 mEq two times daily., Disp: , Rfl: traZODone (Desyrel) 50 mg tablet, Take 1-3 tablets by mouth at bedtime., Disp: , Rfl: verapamil ER (Veralan) 180 mg 24 hr capsule, Take 180 mg by mouth in the morning., Disp: , Rfl: Physical Exam Constitutional: Appearance: Normal appearance. He is normal weight. HENT: Head: Normocephalic and atraumatic. Right Ear: External ear normal. Left Ear: External ear normal. Eyes: Extraocular Movements: Extraocular movements intact. Pupils: Pupils are equal, round, and reactive to light. Neck: Vascular: No carotid bruit. Cardiovascular: Rate and Rhythm: Normal rate and regular rhythm. Pulses: Normal pulses. Heart sounds: Normal heart sounds. Pulmonary: Effort: Pulmonary effort is normal. Breath sounds: Normal breath sounds. Abdominal: General: Bowel sounds are normal. Palpations: Abdomen is soft. Musculoskeletal: General: Normal range of motion. Cervical back: Neck supple. Right lower leg: No edema. Left lower leg: No edema. Skin: General: Skin is warm and dry. Neurological: General: No focal deficit present. Mental Status: He is alert and oriented to person, place, and time. Psychiatric: Mood and Affect: Mood normal. Behavior: Behavior normal. Thought Content: Thought content normal. Judgment: Judgment normal. Labs: Admission on 12/19/2023, Discharged on 12/19/2023 Component Date Value Ref Range Status Ventricular Rate 12/19/2023 70 BPM Final Atrial Rate 12/19/2023 70 BPM Final RI Interval 12/19/2023 228 ms Final QRS DURATION 12/19/2023 114 ms Final QT Interval 12/19/2023 436 ms Final QTC CALCULATION(BAZETT) 12/19/2023 470 ms Final P [place] 12/19/2023 26 degrees Final R-[place] 12/19/2023 42 degrees Final T Wave [place] 12/19/2023 98 degrees Final No results found for: EXTCMP , BMPR1A , CBCDIF , BNP , LASAP , RED 08/06/2023 WBC 2.8, hemoglobin 13.1, hematocrit 40.5, platelets 102 Sodium 137, potassium 4.1, chloride 101, CO2 29.6, BUN 13, serum creatinine 0.83, estimated GFR greater than 60% Hemoglobin A1c 6.2% Total cholesterol 146, LDL 78.4, HDL 58, triglycerides 48 Testing/Procedures: Cardiovascular Laboratory Report 12/19/2023 FINAL IMPRESSIONS: Nonobstructive coronary arteries angiograp (more content not included)... [facility] Progress note 07-20-2024 Note Date & Type Note Facility 07-20-2024 Note Pt is here for a six month follow up. Pt has pericardial calcification, HFpEF, mild AAA. Spironolactone was discontinued at last visit. He is due for another echo in December of 2024. Review of Systems Cardiovascular: Positive for leg swelling. Musculoskeletal: Positive for arthritis, back pain and joint pain. All other systems reviewed and are negative. [facility] Clinical Note 02-25-2023 Note Date & Type [...] SARS-CoV-2 (COVID-19) mRNA BNT-162b2 vax 02/12/2021 Recorded [facility] Comment on above: Result Comment: Elec tronically Signed By: FELISHA MASTERSON, Cuco Ingram\Date and Time Signed: 02/25/23 15:46 EDT Evaluation + Plan note Note Date & Type Note Facility Evaluation + Plan note No data available for this section [facility] Discharge instructions Note Date & Type Note Facility Hospital Discharge instructions No data available for this section [facility] note Note Date & Type Note Facility Progress note No data available for this section [facility] Summary Purpose Family History No Family History [...] section and content) DATE CREATED AUTHOR 09/19/2019 [facility] DATE CREATED AUTHOR AUTHOR'S ORGANIZ ATION 09/21/2022 [facility] DATE CREATED AUTHOR AUTHOR'S ORGANIZ ATION 02/28/2023 [facility] DATE CREATED AUTHOR AUTHOR'S ORGANIZ ATION 02/03/2025 [facility] Patient Care team informatio n (unrecognized section and content) Personnel Name: Blas Eubanks MD Address: Address: [address] [place] [address] FOR RECORDS PERTAINING TO PATIENTS WHO ARE [...] BE BASED ON THE PRIMARY CLINICAL RECORDS. [facility] provides no warranty or guarantee of the accuracy or completeness of information in this document.
== END 2025-03-11 09:36 | disposition home or self-care (01) ==
LOC: CARD 09:35
PROVIDERS: PCP Family Medicine; Visit Provider Internal Medicine Interventional Cardiology
DX: I77.810 Thoracic aortic ectasia (principal); I50.33 Acute on chronic diastolic (congestive) heart failure; I11.0 Hypertensive heart disease with heart failure; Z00.00 Encounter for general adult medical examination without abnormal findings; Z12.5 Encounter for screening for malignant neoplasm of prostate; D69.6 Thrombocytopenia, unspecified
CPT/HCPCS: 36415; 80053; 80061; 83036; 84436; 84443; 84481; 85025; 93306; G0103

== ENCOUNTER 2025-03-11 09:36 | Outpatient (OUT) | payer OTHER, SELFPAY ==
--- OUTSIDE RECORDS SUMMARY | 2025-03-11 09:50 | XMS_ITS | CCD ---
Author Organization [facility] Inform ion Partnership [facility] Care Team Providers Care Compliance Nurse Name Role Phone DR BLAS EUBANKS Admitting Unavailable DR BLAS EUBANKS Attending Unavailable FRANK NAGY Primary Care Unavailable DR BLAS EUBANKS Consulting Unavailable Blas Eubanks Primary Care Physician Cuco BAEZA Attending Unavailable THUAN YADAV Attending Unavailable MAI MAYBERRY Attending Unavailable Allergies Allergy Classification Reported Allergen(s) Allergy Type Date of Onset Reaction(s) Facility (1 source) Triamcinolone; Translations: [TRIAMCINOLONE ACETONIDE] Drug Allergy 02-01-2025 [facility] Repository Medications Current Medications Medication Drug Class(es) [...] Range Facility Office Visiton 02-01-2025 Follow-up visit [id number] Jas Dickson R 1960 M Date Provider Department Center 02/01/2025 THUAN TRAN Family History Problem Relation Age of Onset Coronary artery disease Father Other Father Family Status - Relation Status Age at Father Level of Service:47683 MS OFFICE/OUTPATIENT ESTABLISHED MOD MDM 30 MIN [facility] 36on 07-22-[address] Eubanks just started [...] to bariatric weight loss center. Thank you! [facility] Telephoneon 07-22-2024 Telephone [id number] Jas Dickson R 1960 [facility] Provider Department [place] 07/22/2024 MAI JOY Walker [facility] Family History Problem Relation Age of Onset Coronary artery disease Father Other Father Family Status - Relation Status Age at Father [facility] Office Visiton 07-20-2024 Follow-up visit [id number] Jas Dickson 1960 [facility] Provider Department [place] 07/20/2024 MAI JOY GERHARD [place] Family History Problem Relation Age of Onset Coronary artery disease Father Other Father Family Status - Relation Status Age at Father Level of Service:91275 MS OFFICE/OUTPATIENT ESTABLISHED MOD MDM 30 MIN Reason for Visit and Comments: Hypertension [503182] [facility] Ambulatory Visit Summaryon 0 02-25-2023 [...] 50.0-59.9, adult HTN (hypertension) Morbid obesity Normal [facility] Physician Referralon 023 Physician Referral [phone] [id number] Normal [facility] CBC AUTO DIFFon 02-28-2022 BASO # 0.0 103/ul Normal 0.0-0.1 [facility] Comment on above: Performed By: #### C BC #### [facility] [address] [place] [address] Dr. Bashir Lemons Basophils/100 WBC (Bld) 0.5 % Normal 0.2-2.0 [facility] Comment on above: Performed By: #### C BC #### [facility] [address] [place] [address] Dr. Bashir Lemons EO # 0.0 103/ul Normal 0.0-0.7 [facility] Comment on above: Performed By: #### C BC #### [facility] [address] [place] [address] Dr. Bashir Lemons Eosinophils/100 WBC (Bld) 0.0 % Critically low 0.9-7.0 [facility] Comment on above: Performed By: #### C BC #### [facility] [address] [place] [address] Dr. Bashir Lemons Erythrocyte distribution width (RBC) [Ratio] 12.3 % Normal 11.0-15.0 [facility] Comment on above: Performed By: #### C BC #### [facility] [address] [place] [address] Dr. Bashir Lemons Hematocrit (Bld) [Volume fraction] 41.9 % Critically low 42.0-54.0 [facility] Comment on above: Performed By: #### C BC #### [facility] [address] [place] [address] Dr. Bashir Lemons Hemoglobin (Bld) [Mass/Vol] 13.8 g/dL Critically low 14.0-18.0 [facility] Comment on above: Performed By: #### C BC #### [facility] [address] [place] [address] Dr. Bashir Lemons IG # 0.02 10e3/ul Normal 0.00-0.03 [facility] Comment on above: Performed By: #### C BC #### [facility] [address] [place] [address] Dr. Bashir Lemons IG % 0.5 % Normal 0.0-0.5 [facility] Comment on above: Performed By: #### C BC #### [facility] [address] [place] [address] Dr. Bashir Lemons LYMPH # 1.3 103/ul Normal 1.2-3.8 [facility] Comment on above: Performed By: #### C BC #### [facility] [address] [place] [address] Dr. Bashir Lemons Lymphocytes/100 WBC (Bld) 34.2 % Normal 20.5-60.0 [facility] Comment on above: Performed By: #### C BC #### [facility] [address] [place] [address] Dr. Bashir Lemons MANUAL DIFF REQ NO Normal [facility] Comment on above: Performed By: #### C BC #### [facility] [address] [address] [address] Bashir Lemons MCH (RBC) [Entitic mass] 28.9 pg Normal 25.9-34.0 [facility] Comment on above: Performed By: #### C BC #### [facility] [address] [place] [address] Dr. Bashir Lemons MCHC (RBC) [Mass/Vol] 32.9 g/dL Normal 29.9-35.2 [facility] Comment on above: Performed By: #### C BC #### [facility] [address] [place] [address] Dr. Bashir Lemons MCV (RBC) [Entitic vol] 87.8 fL Normal 80.0-94.0 [facility] Comment on above: Performed By: #### C BC #### [facility] [address] [place] [address] Dr. Bashir Lemons MONO # 0.5 103/ul Normal 0.3-0.8 [facility] Comment on above: Performed By: #### C BC #### [facility] [address] [place] [address] Dr. Bashir Lemons Monocytes/100 WBC (Bld) 12.1 % Critically high 1.7-12.0 [facility] Comment on above: Performed By: #### C BC #### [facility] [address] [place] [address] Dr. Bashir Lemons NEUT # 2.0 103/ul Normal 1.4-6.5 [facility] Comment on above: Performed By: #### C BC #### [facility] [address] [place] [address] Dr. Bashir Lemons Neutrophils/100 WBC (Bld) 52.7 % Normal 43.0-75.0 [facility] Comment on above: Performed By: #### C BC #### [facility] [address] [place] [address] Dr. Bashir Lemons Platelet mean volume (Bld) [Entitic vol] 9.5 fL Normal 9.5-13.5 [facility] Comment on above: Performed By: #### C BC #### [facility] [address] [place], [place] [address] Dr. Bashir Lemons PLT 149 103/ul Critically low 150-450 [facility] Comment on above: Performed By: #### C BC #### [facility] [address] [place], [place] [address] Dr. Bashir Lemons RBC 4.77 106/ul Normal 4.70-6.10 [facility] Comment on above: Performed By: #### C BC #### [facility] [address] [place], [place] [address] Dr. Bashir Lemons WBC 3.8 103/ul Critically low 4.0-11.0 [facility] Comment on above: Performed By: #### C BC #### [facility] [address] [place], [place] [address] Dr. Bashir Lemons Basic Metabolic Panlon 09-08 Anion gap [Moles/Vol] 13 mmol/L Normal 9-18 [facility] Comment on above: Performed By: #### B MP #### [facility] [employer] [address] [place], [place] [address] Calcium [Mass/Vol] 9.7 mg/dL Normal 8.5-10.2 [facility] Comment on above: Performed By: #### B MP #### [facility] [employer] [address] [place], [place] [address] Chloride [Moles/Vol] 100 mmol/L Normal 97-105 [facility] Comment on above: Performed By: #### B MP #### [facility] [employer] [address] [place], [place] [address] CO2 [Moles/Vol] 25 mmol/L Normal 22-30 [facility] Comment on above: Performed By: #### B MP #### [facility] [employer] [address] [place], [place] [address] Creatinine [Mass/Vol] 0.72 mg/dL Low 0.73-1.22 [facility] Comment on above: Performed By: #### B MP #### [facility] [employer] [address] [place] [id number] eGFR- Amer. >60 Normal [facility] Comment on above: Performed By: #### B MP #### [facility] [employer] [address] [place] [id number] GFR/1.73 sq M predicted among non-blacks MDRD (S/P/Bld) [Vol rate/Area] mL/min/{1.73_m2} Normal [facility] Comment on above: Result Comment: eGFR (Estimated [...] GFR. Performed By: #### B MP #### [facility] [employer] [address] [id number] Glucose [Mass/Vol] 120 mg/dL High 74-99 [facility] Comment on above: Result Comment: The [place] Diabetes Association (ADA) provides guidance for cutoff [...] Standards of Medical Care in Diabetes 2016, [place] [employer]. Diabetes Care. 2016.39(Suppl 1). Performed By: #### B MP #### [facility] [employer] [address] [place], [place] [id number] Potassium [Moles/Vol] 4.3 mmol/L Normal 3.7-5.1 [facility] Comment on above: Performed By: #### B MP #### [facility] [address] [place], [place] [address] Sodium [Moles/Vol] 138 mmol/L Normal 136-144 [facility] Comment on above: Performed By: #### B MP #### [facility] [address] [place], [place] [address] Urea nitrogen [Mass/Vol] 22 mg/dL Normal 9-24 [facility] Comment on above: Performed By: #### B MP #### [facility] [address] [place], [place] [address] CNOVon 09-08-2019 CNOV Office Visit (DERMMN ) KIRTI DICKSON ([id number]) 1960 M Date Time Provider Department 09/08/19 [...] use: No EtOh use: Yes occasional 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 #[id number] Prescriptions as of 09/08/2019 Sig: OMEPRAZOLE ORAL [...] lab tests to the lab at the [facility] to look at your kidney numbers. Please continue the compression socks and elevation of your legs. Encounter Status:Closed by GLENDY DAUGHERTY MD on 09/19/19 Normal [facility] PROGRESSon 09-08-2019 PROGRESS HNO ID: [id number] Author: Glendy Daugherty Service: ? 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 Glendy Daugherty MD Normal [facility] SURGICAL PATHOLOGYon 019 SURGICAL PATHOLOGY Specimen originated from [facility] Specimen #: [id number] Submitting Physician: GLENDY DAUGHERTY MD FINAL DIAGNOSIS [...] in-situ hybridization tests have been determined by [facility]'s [facility] Pathology and Laboratory Medicine [place] [facility] in a manner consistent with CLIA requirements. One or more of these tests have not been cleared or approved by the FDA. [facility] is regulated under CLIA as qualified [...] in one cassette. Gross examination performed at [address] 09/08/2019 5:40:43 PM B. Received in Power's is one piece of tissue measuring 0.3 cm in the greatest dimension. Totally frozen for Direct Immunofluorescence. Gross examination performed at [address] 09/08/2019 5:24:20 PM Date of Report: 09/10/2019 Date of Procedure: 09/08/2019 Date of Receipt: 09/08/2019 Submitted by: GLENDY DAUGHERTY MD Location: A61 Diagnostic interpretation performed at [facility], [address] [place] [address]. CLIA Number: [id number] Normal [facility] Urinalysison 09-08-2019 Bilirubin, Urine Negative Normal Negative [facility] Comment on above: Performed By: #### U A #### [place] [address] Clarity (U) Clear Normal Clear [facility] Comment on above: Performed By: #### U A #### [place] [address] Color (U) Yellow Normal Yellow [facility] Comment on above: Performed By: #### U A #### [place] [address] Comments SEE COMMENT Normal [facility] Comment on above: Result Comment: Micr oscopic Examination Performed Performed By: #### U A #### [place] [address] Glucose Ql (U) Negative Normal Negative [facility] Comment on above: Performed By: #### U A #### [place] [address] Hemoglobin/Blood,U r Negative Normal Negative [facility] Comment on above: Performed By: #### U A #### [place] [address] Ketones Ql (U) Negative Normal Negative [facility] Comment on above: Performed By: #### U A #### [place] [address] Leukest Negative Normal Negative [facility] Comment on above: Performed By: #### U A #### [facility] [address] [place], [place] [address] Nitrite Ql (U) Negative Normal Negative [facility] Comment on above: Performed By: #### U A #### [facility] [address] [place], [place] [address] pH (Bld) 7.0 Normal 4.5-8.0 [facility] Comment on above: Performed By: #### U A #### [place] [address] [place] [address] Protein (U) [Mass/Vol] Negative Normal Negative [facility] Comment on above: Performed By: #### U A #### [place] [address] RBC (U) [#/Vol] 0-3 Normal 0-3 [facility] Comment on above: Performed By: #### U A #### [place] [address] [place] [address] Specific [place], Ur 1.020 Normal 1.005-1.030 [facility] Comment on above: Performed By: #### U A #### [place] [id number] Urine Jaspal Comment SEE COMMENT Normal [facility] Comment on above: Result Comment: N/A Performed By: #### U A #### [place] [address] [place] [id number] Urobilinogen Qn (U) Normal Normal Normal [facility] Comment on above: Performed By: #### U A #### [place] [address] [place] [id number] WBC (Bld) [#/Vol] 0-5 Normal 0-5 [facility] Comment on above: Performed By: #### U A #### [facility] [address] [place] [address] [place], [place] [address] Vital Signs Date Time Vital Sign Value Performing Clinician Anabellei paul 02-25-2023 14:15-0400 Blood Pressure Location Cuco BAEZA [facility] 02-25-2023 14:15-0400 Diastolic blood pressure 88 mm[Hg] Cuco BOOKERL [facility] 02-25-2023 14:15-0400 Heart rate 78 /min Cuco NILL [facility] 02-25-2023 14:15-0400 Respiratory rate 16 /min Cuco NILL [facility] 02-25-2023 14:15-0400 Systolic blood pressure 130 mm[Hg] Cuco BAEZA [facility] Encounters Encounter Date Encounter Type Care Provider Facility Start: 02-01-2025 End: 02-01-2025 ambulatory [facility] Start: 07-20-2024 End: 07-20-2024 ambulatory [facility] Start: 02-25-2023 End: 02-26-2023 ambulatory Cuco [...] mRNA BNT-162b2 vax Cuco BAEZA [facility] 03-06-2021 SARS-CoV-2 (COVID-19 ) mRNA BNT-162b2 vax Cuco BAEZA [facility] 02-12-2021 SARS-CoV-2 (COVID-19 ) mRNA BNT-162b2 vax Cuco BAEZA [facility] NEGATED: Highlighted row has not occurred!02-25-2023 influenza virus vaccine, unspecified formulation Cuco BAEZA [facility] Payers Date Payer Category Payer Unknown [id number] 2016 Self-pay 1960 Unknown [id number] 1960 Unknown [id number] 1960 Unknown [id number] Social History Date Type Detail Facility Start: 02-25-2023 Tobacco smoking status Never s moked tobacco (finding) [facility] Tobacco smoking status Never [facility] Sex Assigned At Male [facility] Functional Status Date Assessment Result Facility 02-25-2023 Functional Status N/A [facility] Progress note 02-01-2025 Note Date & Type Note Facility 02-01-2025 Note [facility] Note Chief Complaint: Patient [...] order a basic (more content not included)... [facility] Progress note 07-20-2024 Note Date & Type Note Facility 07-20-2024 Note Cardiovascular Medic [facility] SUBJECTIVE Chief Complaint Patient presents with Hypertension Kriti Dickson is a 64 y.o. male here [...] his activity. He plans to discuss with ortho/supervisor paint about getting this fixed soon so he [...] Final Atrial Rate 12/19/2023 70 BPM Final MS Interval 12/19/2023 228 ms Final QRS DURATION 12/19/2023 114 ms Final QT Interval 12/19/2023 436 ms Final QTC CALCULATION(BAZETT) 12/19/2023 470 ms Final P Blanchard 12/19/2023 26 degrees Final R-Blanchard 12/19/2023 42 degrees Final T Wave Blanchard 12/19/2023 98 degrees Final No results found [...] coronary arteries angiograp (more content not included)... [facility] Progress note 07-20-2024 Note Date & Type [...] All other systems reviewed and are negative. [facility] Clinical Note 02-25-2023 Note Date & [...] SARS-CoV-2 (COVID-19) mRNA BNT-162b2 vax 02/12/2021 Recorded [facility] Comment on above: Result Comment: Elec tronically Signed By: FELISHA MASTERSON, Cuco Ingram\Date and Time Signed: 02/25/23 15:46 EDT Evaluation + Plan note Note Date & Type Note Facility Evaluation + Plan note No data available for this section [facility] Discharge instructions Note Date & Type Note Facility Hospital Discharge instructions No data available for this section [facility] Progress note Note Date & Type Note Facility Progress note No data available for this section [facility] Summary Purpose Family History No Family History [...] section and content) DATE CREATED AUTHOR 09/19/2019 [facility] DATE CREATED AUTHOR AUTHOR'S ORGANIZ ATION 09/21/2022 [facility] DATE CREATED AUTHOR AUTHOR'S ORGANIZ ATION 02/28/2023 [facility] DATE CREATED AUTHOR AUTHOR'S ORGANIZ ATION 02/03/2025 [facility] Patient Care team informatio n (unrecognized section and content) Personnel Name: Blas Eubanks MD Address: Address: [address] [place] [address] FOR RECORDS PERTAINING TO PATIENTS WHO ARE [...] BE BASED ON THE PRIMARY CLINICAL RECORDS. [facility]. provides no warranty or guarantee of the accuracy or completeness of information in this document.
[2025-03-11 10:14] LABS: Basophils Absolute Auto 0.1 10^3/uL (0.0-0.1); Basophils Percent Auto 1.2 % (0.2-2.0); Eosinophils Absolute Auto 0.1 10^3/uL (0.0-0.7); Eosinophils Percent Auto 1.2 % (0.9-7.0); Hematocrit 45.7 % (42.0-54.0); Hemoglobin 15.4 g/dL (14.0-18.0); Immature Granulocytes Abs Auto 0.01 10^3/uL (0.00-0.03); Immature Granulocytes Pct Auto 0.2 % (0.0-0.5); Lymphocytes Absolute Auto 1.3 10^3/uL (1.2-3.8); Mean Corpuscular HGB Conc 33.7 g/dL (29.9-35.2); Mean Corpuscular Hemoglobin 29.3 pg (25.9-34.0); Mean Platelet Volume 8.9 fL (9.5-13.5); Monocytes Absolute Auto 0.6 10^3/uL (0.3-0.8); Monocytes Percent Auto 14.6 % (1.7-12.0); Neutrophils Absolute Auto 2.3 10^3/uL (1.4-6.5); Neutrophils Percent Auto 53.8 % (43.0-75.0); Platelet Count 177 10^3/uL (150-450); Red Blood Count 5.25 10^6/uL (4.70-6.10); Red Cell Distribution Width 12.9 % (11.0-15.0); White Blood Count 4.3 10^3/uL (4.0-11.0)
[2025-03-11 10:46] LABS: Estimated Average Glucose 108 mg/dL; Glycohemoglobin A1C 5.4 % (4.5-6.2)
[2025-03-11 11:23] LABS: Alanine Aminotransferase 38 U/L (16-63); Albumin Level 3.8 g/dL (3.4-5.0); Alkaline Phosphatase 72 U/L (46-116); Anion Gap 13.6; Aspartate Amino Transferase 23 U/L (15-37); BUN Creatinine Ratio 16.5; Bilirubin Total 2.2 mg/dL (0.2-1.0); Calcium 9.1 mg/dL (8.5-10.1); Carbon Dioxide 27.1 mmol/L (21.0-32.0); Chloride 101 mmol/L (98-107); Chol HDL Ratio 2.6; Cholesterol 165 mg/dL (<=200); Estimated GFR (African America >60 (>=60 mL/min/1.73m^2); Estimated GFR (Non-African Ame >60 (>=60 mL/min/1.73m^2); Free T3 2.71 pg/mL (2.18-3.98); Globulin 3.8 g/dL; Glucose 98 mg/dL (74-106); HDL Cholesterol 63 mg/dL (40-60); Potassium 3.7 mmol/L (3.5-5.1); Sodium 138 mmol/L (136-145); Thyroid Stimulating Hormone 2.016 uIU/mL (0.358-3.740); Total Protein 7.6 g/dL (6.4-8.2); Triglycerides 73 mg/dL (<=150); VLDL CHOLESTEROL 14.6 mg/dL
== END 2025-03-11 09:37 | disposition home or self-care (01) ==
LOC: LAB 09:37
PROVIDERS: PCP Family Medicine; Visit Provider Family Medicine
DX: Z00.00 Encounter for general adult medical examination without abnormal findings (principal); I10 Essential (primary) hypertension; Z12.5 Encounter for screening for malignant neoplasm of prostate; D69.6 Thrombocytopenia, unspecified
CPT/HCPCS: 36415; 80053; 80061; 83036; 84436; 84443; 84481; 85025; G0103